=== PATIENT | female | born 1995 | race Caucasian/White ===

== ENCOUNTER 2024-11-05 17:24 | Emergency (ER) | payer OTHER, SELFPAY ==
--- OUTSIDE RECORDS SUMMARY | 2021-07-16 06:29 | XMS_ITS | Continuity of Care Document ---
Author Organization [employer] [facility] Address [address] [place] [address] Phone Care Team Providers Care Hi Lo Driver Name Role Phone Sesar Lua MD Unavailable Unavailable Allergies, Adverse Reactions, Alerts Substance Reaction Status Criticality morphine Altered Heart Rate Active No Inform ation Medications Medication Instructions Dosage Effective Dates (start - stop) Status Comments Robaxin-750 750 mg tablet take 1 tablet by oral route every 8 HOURS NEEDED - Active naproxen 500 mg tablet take 1 tablet by oral route 2 times every day with food as needed 500 MG - Active Kariva (28) 0.15 mg-0.02 mg (21)/0.01 mg (5) tablet take 1 tablet by oral route every day 1.00 tablet - Active Problems Condition Type Effective Dates (start - stop) Clini jennifer Status Comments No Known Problems Procedures Procedure Date OFFICE/OUTPATIENT VISIT, EST URINE TEST OFFICE/OUTPATIENT VISIT, EST ASSAY OF BODY FLUID ACIDITY URINE TEST OFFICE/OUTPATIENT VISIT, EST STREP A ASSAY W/OPTIC INFLUENZA ASSAY W/OPTIC HETEROPHILE ANTIBODIES OFFICE/OUTPATIENT VISIT, EST INFLUENZA ASSAY W/OPTIC OFFICE/OUTPATIENT VISIT, EST INFLUENZA ASSAY W/OPTIC OFFICE/OUTPATIENT VISIT, EST INFLUENZA ASSAY W/OPTIC HETEROPHILE ANTIBODIES OFFICE/OUTPATIENT VISIT, EST ASSAY OF BODY FLUID ACIDITY OFFICE/OUTPATIENT VISIT, EST ASSAY OF BODY FLUID ACIDITY OFFICE/OUTPATIENT VISIT, EST URINALYSIS, AUTO, W/O SCOPE HETEROPHILE ANTIBODIES STREP A ASSAY W/OPTIC OFFICE/OUTPATIENT VISIT, EST URINALYSIS, AUTO, W/O SCOPE OFFICE/OUTPATIENT VISIT, [facility] Advance Directives Directive Yes / No Effective Date File Name No Information Encounters Encounter Description Practice Location Reason(s) For Visit Diagnoses Date Provider Providers Copied on Encounter [facility], [address] [place] [address], [id number] , tel:[phone] [facility] No Information 2 Stoney Kaba. [address], [place], [place], [id number], [place]. tel:[phone] OFFICE/OUTPA TIENT VISIT, [facility], [address] [place] [address], [id number] , [place] tel:[phone] [facility] musculoskelet al pain (chief complaint)jose alberto n (chief complaint) Acute bilateral low back pain without sciatica 201 [address] LAFLEURSANAM Church. [address], [place], [id number], [place]. tel:[phone] Referring Provider: Lynnette PACK, [address] [place], [address]. tel:[phone] OFFICE/OUTPA TIENT VISIT, [facility], [address] [place] [address], [id number] , [place] tel:[phone] [facility] Abdominal pain (chief complaint)con traception (chief complaint) Encounter for test, result negativeNaus eaIrregular menstruation 8 Lilia LAFLEUR [facility] Aisha. [address], [place], [place], [id number], [place]. tel:[phone] Referring Provider: Aisha Rodrigues APRN [facility] Estelita, [address], [place], [address]. tel:[phone] [place] [address], [address] [place] [address] [address], [place], [place], [id number] , [place] tel:[phone] [facility] No Information 7 [facility] Lynnette. [address], [place], [place], [id number], [place]. tel:[phone] OFFICE/OUTPA TIENT VISIT, [facility], [address] [place] [address] [address], [place], [place], [id number] , [place] tel:[phone] [facility] contraception (chief complaint) Other acneOral contraceptiv e prescribedIr regular menstruation Encounter for test, result negative 7 Lilia LAFLEUR [facility] Aisha. [address], [place], [place], [id number], [place]. tel:[phone] Referring Provider: Aisha Rodrigues APRN [facility] Estelita, [address], [place], [address]. tel:[phone] OFFICE/OUTPA TIENT VISIT, [facility], [address], [place], [place], [id number] , [place] tel:[phone] [facility] Flu-like symptoms (chief complaint) Flu-like symptomsAcut e asthmatic bronchitisAc wilton pharyngitis, unspecified 7 Javierelyssa [facility] Lynnette. [address], [place], [place], [id number], [place]. tel:[phone] Referring Provider: Lynnette Shane [facility], [address] [place], [address]. tel:[phone] OFFICE/OUTPA TIENT VISIT, [facility], [address] [place] [address] [address], [place], [place], [id number] , [place] tel:[phone] [facility] acne (chief complaint) Acne, unspecified acne type 6 No Information OFFICE/OUTPA TIENT VISIT, [facility], [address] [place] [address] [address], [place], [place], [id number] , [place] tel: [phone] [facility] cc fever (chief complaint) Flu-like symptoms 6 [facility] Essence. [address], [id number], [place]. tel:[phone] Referring Provider: Essence Fulton [facility], [address] [place], [address]. tel:[phone] OFFICE/OUTPA TIENT VISIT, [facility], [address] [place] [address] [address], [place], [place], [id number] , [place] tel:[phone] [facility] cc throat swollen (chief complaint) PharyngitisR eunice 6 Kirstin LAFLEURRENE [place]ry. [address], [place], [id number], [place]. tel:[phone] Referring Provider: Essence Fulton [facility], [address] [place], [address]. tel:[phone] OFFICE/OUTPA TIENT VISIT, [facility], [address] [place] [address], [place], [place], [id number] , [place] tel:[phone] [facility] Vaginal discharge (chief complaint) LeukorrheaMo nilial vulvovaginit isBacterial vaginosisOra l contraceptiv e prescribed 5 No Information OFFICE/OUTPA TIENT VISIT, [facility], [address] [place] [address] [address], [place], [place], [id number] , [place] tel:[phone] [facility] Vaginal discharge (chief complaint) Painful micturition, unspecifiedV aginal odorVaginal irritation 5 No Information OFFICE/OUTPA TIENT VISIT, [facility], [address] [place] [address] [address], [place], [place], [id number] , [place] tel: [phone] [facility] cc rash (chief complaint) RashPharyngi tis, Acute 5 No Information OFFICE/OUTPA TIENT VISIT, [facility], [address] [place] [address] [address], [place], [place], [id number] , [place] tel: [phone] [facility] Burning on urination (chief complaint)STI (chief complaint)my notes (chief complaint) DysuriaCysti tisRecurrent urinary tract infection 4 No Information Family History Family Member Type Diagnosis Age At Onset Mother Problem (finding) depression Father Problem (finding) Mental illness Brother Problem (finding) diabetes melli tus in first degree relative Father Problem (finding) myocardial inf arct in 1st degree male relative <55 years Payers Payer name Insurance type Covered democrat ID Negrito charles(s) [employer] CI [id number] Social History Type Description Quantity Date Captured Comments Sex Female Smoking Status No Information Sexual Orientation Straight or heterosexual Chief Complaint And Reason For Visit No Information Reason For Referral Reason For Referral No Information Plan Of Treatment Date Type Action Status Goal URINALYSIS NONAU TO W/O SCOPE. Due on due Goal PAP. Due on due Goal Cytology report of Cervical and vaginal smear or scraping Cyto stain. Due on due Goal Td vaccine. Due on 18 due Goal FABRICATION AND LAYOUT CRAFTSMAN/Breast exam. Due on due Goal Pap liquid based for cytology. Due on due Goal Glucose. Due on due Goal HPV (1st). Due on 8 due Goal Pap/HPV testing. Due on due Goal Depression scree colette. Due on due Goal HPV, high+low-risk. Due on due Goal Influenza vaccine. Due on due Goal HPV, high+low-risk. Due on due Goal Influenza vaccine. Due on due Goal HPV (1st). Due on 8 due Goal Pap/HPV testing. Due on due Goal Depression scree colette. Due on due Goal Glucose. Due on due Goal Pap liquid based for cytology. Due on due Goal Cytology report of Cervical and vaginal smear or scraping Cyto stain. Due on due Goal PAP. Due on due Goal URINALYSIS NONAU TO W/O SCOPE. Due on due Goal FABRICATION AND LAYOUT CRAFTSMAN/Breast exam. Due on due Goal Td vaccine. Due on 18 due Goal Influenza vaccine. Due on due Goal Pap/HPV testing. Due on due Goal Depression scree colette. Due on due Goal Glucose. Due on due Goal Pap liquid based for cytology. Due on due Goal FABRICATION AND LAYOUT CRAFTSMAN/Breast exam. Due on due Goal PAP. Due on due Goal URINALYSIS NONAU TO W/O SCOPE. Due on due Goal Cytology report of Cervical and vaginal smear or scraping Cyto stain. Due on due Goal Td vaccine. Due on 17 due Goal HPV, high+low-risk. Due on due Goal HPV (1st). Due on 7 due Goal PAP. Due on due Goal HPV (1st). Due on 7 due Goal Td vaccine. Due on 17 due Goal Pap liquid based for cytology. Due on due Goal Influenza vaccine. Due on due Goal Glucose. Due on due Goal HPV, high+low-risk. Due on due Goal Pap/HPV testing. Due on due Goal URINALYSIS NONAU TO W/O SCOPE. Due on due Goal FABRICATION AND LAYOUT CRAFTSMAN/Breast exam. Due on due Goal Depression scree colette. Due on due Goal Depression scree colette. Due on due Goal Td vaccine. Due on 16 due Goal URINALYSIS NONAU TO W/O SCOPE. Due on due Goal Tdap. Due on due Goal FABRICATION AND LAYOUT CRAFTSMAN/Breast exam. Due on due Goal PAP. Due on due Goal HPV (1st). Due on 6 due Goal Pap/HPV testing. Due on due Goal HPV, high+low-risk. Due on due Goal Pap liquid based for cytology. Due on due Goal Influenza vaccine. Due on due Goal Glucose. Due on due Referral Ordered: [facility] (related to Acne, unspecified acne type) ordered Referral Referred To: [facility] [id number] [place], [id number] Ordered: Referrals: Dermatology. [facility]. Evaluate and treat ordered Patient Education Mononucleosis: After Yo ur Visit completed Future Order: Lab Order Urine Cu lture ([id number]), Collected on: Ordered Future Order: Lab Order Chlamydi a/GC rRNA ([id number]), Ordered on: Ordered History Of Present Illness Encounter Date Complaint History Of Prese nt Illness musculoskeletal pain (comments) Pt states she has had back pain since Mon[place], symptoms have progressively worsened. Pain is in lower back and in certain positions pain shoots into front of legs. Pt has some numbness/tingling along lower back. Pt has used OTC anti-inflammatory, ice and heat with little relief. Pt is unaware of any injury. No urinary symptoms, no GI symptoms. pain it is becoming h mike to do day to day things, pt can no longer sit in class, only relief from back pain has been standing, pt is unable to get good sleep, as it is difficult to go to sleep or stay asleep.hip pain was from being out of alignment, but that was corrected by Chiropractor, but that pain is also back. musculoskeletal pain Onset: 2 mo nths ago. Location: hip. The pain is sharp. Context: there is no injury. The pain is aggravated by bending and sitting. There are no relieving factors. Associated symptoms include difficulty initiating sleep, nocturnal awakening, nocturnal pain and tingling in the legs. Abdominal pain Onset: 1 month a go. It occurs constantly. The problem is worse. Location is LLQ, RLQ. There is radiation to back. The patient describes it as aching, burning and Nausea. Denies aggravating factors. Denies relieving factors. Additional information: Vaginal discharge increase since control change. Clear color. Denies itching. H/o ovarian cysts with surgical [employer] high school. Partner of 2yrs. contraception The symptoms are reported as being moderate. The symptoms occur randomly. Aggravating factors include New start to Kariva Pill. Associated symptoms include cramps. She states the symptoms are acute. 03/2017 menses = 5day flow & bad cramping on wk. 3 of Pill pack. 05/21/17 short cycle lasting 2days, but cramps on wk. 4 of Pill pack. Pill switch last visit & is in the 3packs of Kariva. Prior to that was on LoLoestrin, but did not get good acne control. Is getting good skin now. contraception The symptoms beg an 11 months ago. OCP helped with acne till September. Was also tanning then. Using OTC creams and helping. Wondering about changing OCP. On Lo Loestrin since 02/2016. States last Pap 02/2016 with another provider & normal per pt. States breasts WNL. States has been having menses wk. 2 of OC pack & cramps then, too. Partner of 2yrs. States had STI screen last year & normal results. Flu-like symptoms (comments) Pt states severe back pain, body aches, sneezing, cough, chills. States she has taken DayQuil for symptoms. States having asthma- takes inhaler when needed. States she has not yet taken inhaler. Flu-like symptoms The symptoms b gage 2 days ago. The symptoms have worsened. The patient presents with back pain, chills, cough, fatigue, generalized weakness and headache. The patient denies any aggravating factors. Interventions that have been tried have not provided any relief. Additional information: Patient states c/o extreme fatigue and body aches. acne (comments) States she has b een on acne medicine since the beginning of October. States in December she started taking 100mg medication twice a day. States it has helped with the deep acne. States she has flare ups randomly. States it is super frustrating. Does have topical cream that she uses in the morning. States she still has a decent amount left of cream. States since moises accured when she was 19 she has watched what she has ate. Her field clerk is in [place] and hasn't been following up. Was on Accutane in the past. NKDA.Discussed diagnosis and treatment options with patient and information given. Patient is given derm referral but advised to follow up with her Water Control Supervisor in [place] if it is faster. Topical benzoyl peroxide and cleocin T written. Bactrim written but patient is advised to review current scripts to see if she is on similar products currently. acne The patient pres ents with acne that began 2 years ago. The problem is moderate and unchanged. Area(s) affected include the face. Relevant history positive for family history of depression, sensitive skin and control with oral contraceptives. The patient is sexually active. The patient denies history of liver disease, history of renal disease and previously taken Accutane . Aggravating factors include stress. Denies relieving factors. The date of last menses was on 04/26/2016. The acne has been managed systemically with minocycline with a good response. Associated symptoms include dry skin, oily skin, erythema, scarring and sensitive skin. Pertinent negatives include painful lesion or skin cracking. Additional information: pt states she sees a field clerk. pt states she was on a cream and she states it is not doing anything anymore. pt states it does improve but then gets worse. pt states the minocycline was working well and now it is doing nothing. she states her dermatoligist upped the medication and it did not help. cc fever The symptoms beg an 36 hours ago. The symptoms are reported as being moderate. The symptoms occur constantly. Relieving factors include dayquil , nyquil and ibuprofen. She states the symptoms are acute. c/o chest tight and muscle aches with fatique, hot and cold flashes and sometimes dizziness.constant headache with sharita ear discomfort. these symtoms came on very sudden. cc throat swollen The symptoms b gage 2 days ago. The symptoms are reported as being moderate. The symptoms occur constantly. Relieving factors include nothing. She states the symptoms are acute. c/o tongue and throat swollen, red , scattered rash on legs and under arm. fatique. had mono last year with the same symptoms. Vaginal discharge (comments) Had STI testing back home. The doctor at the urgent care gave her an antibotic for chlamydia. The antibotic gave her symptoms of vaginal discharge. Took medication Tuesday morning. Has been having bad cramps for 3 months now. Knows she needs to get back on control but it makes her have nausea. Has a history of ovarian cysts. Pain is sharp until period starts. Was on Depo before and gained a lot of weight. Does not use tampons. Has been with partner since the beginning of December. Feels that the last time she was treated that the infection went away. Vaginal discharge Her symptoms b gage 4 Days ago. She states the problem has remained unchanged. The symptoms are reported as being mild. Presently the patient is experiencing vaginal itching, vaginal irritation, vaginal odor and vaginal discharge. Color is white. Character is cottage cheese-like. Last menstrual period was 02/24/2015. The patient has a history of bacterial vaginosis. Her symptoms are associated with vaginal burning and itching skin of vaginal/groin but she denies dysuria, frequent urination or genital lesions. Additional information: States the symptoms came right after taking an antibiotic. States that for 3 months now she has been having bad cramping 1.5 weeks before she should start her period. Vaginal discharge (comments) Cristy marie has UTI. Same symptoms as the past UTI's. Also with vaginal odor after SI with new partner `1 week ago, no condom used. Previous STI testing after last partner in June. Last menses 2 weeks late, but no risk.. States menses is irregular. Has been on OC in past and N/V/abdominal pain like when she had ovarian cysts. Knows she needs to go back on birht control. Vaginal discharge Her symptoms b gage 2 Days ago. She states the problem has worsened. The symptoms are reported as being mild. Presently the patient is experiencing vaginal itching, vaginal odor and vaginal discharge. Color is yellow. Character is creamy. Presently the patient is not experiencing vaginal irritation. Last menstrual period was 02/05/2015. Relevant factors include new partner but patient denies condom use, contraceptive use, diabetes mellitus, douching, recent antibiotics or tampon use. The patient has a history of bacterial vaginosis and herpes genitalis. The patient has no history of abnormal PAP, chlamydia, gonorrhea, trichomoniasis or yeast. Her symptoms are associated with dyspareunia and dysuria but she denies fever, vaginal burning, frequent urination, genital lesions, genital rash, genital ulcers or herpes genitalis. Additional information: Has tingling with urination. cc rash The symptoms beg an 2 months ago. The symptoms are reported as being moderate. Aggravating factors include hot shower and cold air. pt state she has a rash on her whole body. she states she has had the rash for the past 2 months. she states it hasnt spread but it is getting more itchy and worse. she went to the doctor at home and was dx with scabies 2.5 weeks ago they gave her rx but they did not help. the bumps have not blistered or do not have discharge. she states she has not changed any lotions, soaps, perfumes, meds. cc rash (comments) The patient i s here with a rash for the past 2 months. She states that it has recently gotten much worse. The rash is present in her armpit, shins, hip, inner thighs. Exacerbating factors: scratching, cold or heat Relieving factors: not touchingShe denies any new detergents, soaps, machine cloth measurer, lotions or perfumesShe does note some mild fatigue. She is requesting a monospot be done due to her mom having a history of mono and when she had mono she developed a rash.She does note that she has never been out in the cold like this before. She was placed on elimite for possible scabies about 2 1/2-3 weeks ago. It did not help the rash at all. STI Presently the pa mikaela is not experiencing vaginal itching, vaginal irritation, vaginal odor and vaginal discharge. Last menstrual period was 12/23/2013. Relevant factors include condom use, oral contraceptives and new partner but patient denies diabetes mellitus, douching, recent antibiotics or tampon use. The patient has a history of herpes genitalis. The patient has no history of abnormal PAP, bacterial vaginosis, chlamydia, gonorrhea, trichomoniasis or yeast. Her symptoms are associated with dysuria and frequent urination but she denies fever, dyspareunia, vaginal burning, genital lesions, genital rash, genital ulcers or herpes genitalis. Burning on urination Onset: 2 We eks. The severity of the problem is moderate. The problem has worsened. The symptoms are constant. Presenting/Initial symptoms include abdominal pain, burning, dysuria, frequency and hematuria. Symptoms are associated with recurring urinary tract infections. Symptoms are not associated with diabetes or . Associated symptoms include abdominal pain, dysuria, frequency, hematuria and pressure. Pertinent negatives include fatigue, fever, flank pain, nausea, nocturia, pelvic pain, rash, retention, urgency, vaginal discharge or vomiting. my notes Gets recurrent U TI's. Has had them since she was younger. Has never seen a urologist. She follows with her [facility]ER. Tries to urinate after SI. Does hold urine in her bladder for 6 hours. Using an exfoliating body wash. Menses is irregular as stopped OC while on antibiotic. Had regular partner of 4 years and one new partner with condom4 days ago. No vaginal symptoms. Functional Status Date Functional Assessmen t No Information Instructions Date Instruction Additional Infor stefanie use the medication a s directedapply ice for 20 minutes four times per day for 24-48 hoursUSE THE MEDICATION DIRECTED Related to Acute bilateral low back pain without sciatica take Pill with food or at bedtim e Related to Nausea Normal exam findings .Symptoms likely due to Pill transition from LoLoestrin to Kariva in the last 90days.Consider Ultrasound eval. if symptoms persist or worsen into this next Pill pack.Continue timeliness of daily Pill use. Another option in future would be The Ring.Aleve, ibuprofen, Midol for cramps as needed. Take with food.Plan return visit in 1-3mos. for Pap exam & as needed Related to Irregular menstruation Irregularity can occ ur with Lo Loestrin due to the low dose. Expect regularity with menses on wk. 4 of Pill pack with Kariva.STI screening suggested & you declined today. Those may be done with your [facility] exam next mo. then. Related to Irregular menstruation as above. The Pill m ust be taken daily at the same time -- you may program your cell phone to remind you. Condoms are advised for safer sex. Most common side effect =breakthrough bleeding -- bleeding when it's not your menstrual week. This side effect is most likely to occur with the 1st 1-3packs of pills. You may come in for a Pill or method switch if you are dissatisfied with your current Pill. Danger signs are unexplained abdominal pain, chest pain, worsening headaches, visual changes, leg pains/swelling, or shortness of breath. Danger signs require a visit to the ER & are rare. Related to Oral contraceptive prescribed finish current Pill pack then switch to Kariva (desogestrel) Pill. The progestin content of this pill has an anti-testosterone effect which can help with acne control.Avoid tanning bed as that is cancer risk especially with you as a redhead & pale skin.Advise Well Woman (pelvic exam) next month when due.return as needed & for Well Woman in 02/2017 Related to Other acne Medication as instru cted. Follow up in 2-3 days if symptoms do not improve. Go to ER if worsening symptoms- including chest pain, shortness of breath. Use inhaler 2 puffs every four hours for cough for the next 2-3 days. Use condoms from day one of antibiotic until seven days after last dose. Related to Acute asthmatic bronchitis Take Motrin or Tylen ol for pain; Sudafed or Mucinex for congestion. Return to [facility] as needed. Report to ER for difficulty breathing or any problems. 8-10 glasses of water a day and rest. Related to Flu-like symptoms Topical Benzoyl josefina xide and Cleocin T to affected areas as directed. Antibiotics as prescribed. Follow up with Dermatology ARGELIA to confirm ABX change if possible. Return for any problems. Related to Acne, unspecified acne type see plan detail Related to Acne, unspecified acne type Check your temperatu re when feeling chilled. Fever control with Tylenol and Motrin products. Salt water gargles if helpful. Inhaler 2 puffs 4 times a day as needed. Rest. Increase fluids and food as tolerated. No Driving with sedating medications. No cough drops at bedtime(choking risk). Report to ER for worsening pain fever, vomiting, dehydration, mental status changes, neck pain etc. Return to [facility] if not improving 2-7 days for re-evaluation as needed. Related to Flu-like symptoms Take medicaiton as d irected. May use cool compresses to areas for comfort. Follow up if not improved in 1 week. If symptoms change or worsen may follow up with [facility] or go to ER. Related to Rash Vocal rest as needed . Increase fluids and food as tolerated. Salt water gargles if helpful. Ricola throat lozenges for throat discomfort. No cough drops at bedtime(choking risk). Motrin 600-800mg every 8 hours as needed for throat discomfort, take with food. Report to ER for worsening pain, fever, vomiting, difficulty breathing etc. Return to [facility] 4-5 days if not improving. Related to Pharyngitis Reviewed OC use and administration. Reviewed ACHES. Questions answered. Verbalized understanding of med use and instructions. Will use 20 mcgm dose and hope no nausea. Take with food and at night. Discussed possible use of Nuvaring, but declines. Related to Oral contraceptive prescribed Bacterial vaginosis is an infection that is due to an overgrowth of bacteria. It is the most common vaginal infection. It can occur by itself or can often go along with another infection. That is why other testing is done when checking for an infection. It is aggravated by stress. Use of condoms helps to prevent this infection. Info. provided. Reviewed med use. Verbalizes understanding. If gets another BV, consider doing urea and mycoplasma testing. If chlamydia test comes back positive, then partner needs treatment. Related to Bacterial vaginosis Yeast is a fungus th at is normally present in the vagina in a balance with other bacteria. It can overgow at certain times such as high stress, antibiotic use, change in hygiene products including soaps, dry intercourse, premenstrually or a combination of these things. It is advised to use a mild cream based soap in the genital area such as Dove bar soap. Be sure there is enough lubrication with intercourse and avoid scented hygiene products to help prevent yeast infections. Be sure to complete the treatment. It is best to avoid intercourse until the symptoms are resolved. If symptoms are not resolved within a few days of completing the treatment or if symptoms worsen then return to the clinic or contact your provider. Related to Monilial vulvovaginitis see plan details Related to Oral contraceptive prescribed see plan details Related to Vicki lial vulvovaginitis Await results of lab s. Advised to resume control for protection and to prevent ovarian cysts. Will see own WORM RAISER in [place]. Related to Vaginal irritation Discussed possible c auses. Await Affirm results. Suggest GC/ Chlamydia testing in 2-3 weeks when accurate. Did not do today as it is too soon. The patient verbalized an understanding of the plan. Related to Vaginal odor Advised that UA is n egative. Symptoms could be due to vaginal cause. Will notify results of Affirm. Related to Painful micturition, unspecified see plan details Related to Vagi nal irritation see plan details Related to Vagi nal odor see plan details Related to Pain ful micturition, unspecified Use steroid and pres cribed at visit. Return to [facility] if no improvement. If you develop chest pain, shortness of breath please go to ER immediately. Related to Rash Will do urine cultur e and call results prn. If another infection, advise to see a urologist. The patient verbalized an understanding of the plan. Related to Recurrent urinary tract infection Discussed bladder in fection, cause, treatment and prevention. Info. provided. Increase fluids and void every 3 hours. Avoid caffeine and carbonated drinks. Urinate after sex. Wipe front to back. Mild body soap, like Dove bar soap. Reviewed med use. Verbalizes understanding of all instuctions. If symptoms after treatment, then RTC. Verbalizes understanding of the plan. Related to Cystitis see plan details Related to Cyst itis see plan details Related to Recu rrent urinary tract infection Assessments Type Assessment Date No Information Patient Care Teams Name Effective Dates (start - stop) Status Members No Information
--- OUTSIDE RECORDS SUMMARY | 2024-10-02 09:40 | XMS_ITS | Encounter Summary ---
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 Name Role Phone Rufino Ayala PA-C Unavailable [phone] Terry Kovacs MD Unavailable Rufino Ayala PA-C Primary Care Provider [phone] Source Comments In the event this information is protected by the Federal Confidentiality of Alcohol and Drug AbusePatient Records regulations: The Federal rules restrict any use of the information to criminally investigate or prosecute any alcohol or drug abuse patient.[facility] Reason for Referral * Transition of Care (Routine) - Authorized Specialty Diagnoses / Procedures Referred By Ambika hayes Referred To Contact Psychology Diagnoses Pulsatile tinnitus Procedures CONSULT TO PSYCHOLOGY Suleman Mariscal MD [address] [place] [address] Phone: tel: fax: Deon Montemayor PSYD [address] [place] [address] Phone: tel: Referral ID Status Reason Start Date Expiration Date Visits Requested Visits Authorized [id number] Authorized PCP Requested Referral 10/02/2024 10/02/2025 1 1 Reason for Visit * Reason Comments pulsatile tinnitus Encounter Details Date Type Department Care Team (Latest Contact Info) Description 10/02/2024 9:[address] [facility] Neurology [address] [place] [address] Suleman Mariscal MD [address] [place] [address] Pulsatile tinnitus (Primary Dx) Social History Tobacco Use Types Packs/Day Years Used Date Smoking Tobacco: Never Smokeless Tobacco: Never Alcohol Use Standard Drinks/Week Comments Yes 0 (1 standard drink = 0.6 oz pur e alcohol) socially- twice a month Area Deprivation Index Answer Date Diaz rded National Score (1-100), lower number is lower ri sk 63 10/02/2024 State Score (1-10), lower number is lower risk 4 10/02/2024 Data from: https://www.neighborhoodatlas.medicine.[facility].edu/. Last address used for calculation [address] [address] 10/02/2024 Comments No Sex and Gender Information Value Date Recorded Sex Assigned at Not on file Legal Sex Female 9:59 AM EDT Gender Identity Not on file Sexual Orientation Not on file documented as of this encounter Progress Notes * Suleman Mariscal MD - 10/02/2024 10:50 AM EDT Images from the original note were not included. [facility]: Cerebrovascular Neurosurgery and Endovascular Surgical Neuroradiology Follow-up Visit Tracy Mckoy [facility]#: [id number] Date of Service: 10/02/2024 Primary Care Provider: CORRY Arango, PA-C Subjective Ms. Mckoy is a 29-year-old female presenting for follow-up after a recent angiogram. Tracy reports a mild soreness following the angiogram, attributed to excessive walking yesterday. She does not endorse any complications, swelling, or additional bruising beyond what she describes as typical. She does not report numbness or tingling but mentions ongoing nerve issues with her quadriceps. She describes the tinnitus as overwhelming and expresses a strong desire to alleviate her symptoms,stating, I will do anything to try to make this go away or the best results that we can. She acknowledges the impact of her condition on her quality of life and is willing to pursue any measures tominimize it. She recently had stapedotomy performed by Dr. Kovacs. REVIEW OF SYSYEMS Ears/Nose/Mouth/Throat: (+) hearing changes, (+) tinnitus Musculoskeletal: (+) quadriceps muscle soreness Skin: (+) bruising, (-) swelling Neurological: (-) numbness, (-) tingling, (+) quadriceps nerve issue Psychiatric: (+) feeling overwhelmed Suleman Mariscal MD ACTIVE PROBLEM LIST Ponv (Postoperative Nausea and Vomiting) Asthma (Hcc) PAST SURGICAL HISTORY Procedure Laterality Date APPENDECTOMY 2021 L'SCOPE DX W/WO BRUSHINGS/WASHINGS 2011 2 ovarian cysts removed PAST SURGICAL HISTORY OF Left hand fracture TONSILLECTOMY & ADENOIDECTOMY <AGE 12 and ear tubes- as a child Allergies: Liquid Bandage (Cyanoacrylate) [Enbucrilate] Medications: Current Outpatient Medications Medication Sig venlafaxine HCl (EFFEXOR XR ORAL) Take 150 mg by mouth once daily. traZODone (DESYREL) 50 mg tablet Take 50 mg by mouth as needed for sedation. cetirizine HCl (CETIRIZINE ORAL) cetirizine Refills(s) 0 Start Date: 03/03/23 Status: Ordered (Patient not taking: Reported on 07/10/2024) cyclobenzaprine (FLEXERIL) 10 mg tablet Take 10 mg by mouth. (Patient not taking: Reported on 07/10/2024) fluticasone (FLONASE) 50 mcg/actuation nasal spray 1-2 Sprays. (Patient not taking: Reported on 07/10/2024) hydrocortisone 2.5 % cream Apply to affected area. meclizine (ANTIVERT) 25 mg tab Take 25 mg by mouth. ondansetron orally disintegrating (ZOFRAN ODT) 4 mg disintegrating tablet 4 mg = 1 tab(s), Oral, q6hr, PRN PRN as needed for nausea/vomiting, # 12 tab(s), Refills(s) 0, 0, Maintenance, Pakistani, Routeto Pharmacy Electronically, Pharmacy: [facility] [id number] (Patient not taking: Reported on 07/10/2024) pseudoephedrine (SUDAFED) 60 mg tablet Take 60 mg by mouth every 6 hours as needed. (Patient not taking: Reported on 09/24/2024) venlafaxine ER (EFFEXOR XR) 150 mg 24 hr capsule Take 150 mg by mouth. albuterol sulfate 90 mcg/actuation aebs Inhale as instructed. (Patient not taking: Reported on 07/10/2024) albuterol HFA (PROAIR HFA) 90 mcg/actuation inhaler Inhale 2 Puffs as instructed every 4 hours as needed for Wheezing/Shortness of Breath. No current facility-administered medications for this visit. Social History Tobacco Use Smoking status: Never Smokeless tobacco: Never Vaping Use Vaping status: Never Used Substance Use Topics Alcohol use: Yes Comment: socially- twice a month Drug use: Never Objective PHYSICAL EXAMINATION (Video visit, evaluation by zoom) General: Well-developed, well-nourished, in no acute distress. HEENT: Normocephalic, atraumatic. Sclerae anicteric. Neurological: Awake, alert, oriented. EOMI, face symmetric, tongue midline. Speech fluent. RESULTS We reviewed together images from her recent angiogram which shows a right dominant transverse sinus, slightly smaller left transverse sinus with mild narrowing at the sinodural angle. At the time balloon inflation in the lateral transverse sinus decreased but did not completely eliminate tinnitus. Assessment & Plan # Pulsatile tinnitus (H93.A9) Angiogram reveals mild narrowing and turbulence in the left lateral transverse sinus. Balloon inflation during the procedure showed a decrease in tinnitus, suggesting that the turbulence is contributing to the symptoms. Discussed the potential benefits and limitations of stent placement to improve laminar flow and reduce turbulence. I believe this will decrease but not eliminate her symptoms. We discussed risks of the procedure including dual antiplatelet medications, subdural hemorrhage duringthe procedure (< 05/999), and hemorrhage at the access site. Because of debilitating symptoms and associated disability, she would like to proceed with stenting. - Scheduled stent placement to address the mild narrowing and turbulence in the left lateral transverse sinus. - Initiate dual antiplatelet therapy with aspirin and Plavix one week prior to the procedure and continue for three months post-procedure, followed by aspirin monotherapy for an additional three months. - Educated patient on the risks of the procedure, including potential bleeding and the need for antiplatelet therapy. - Advised patient to take a week off work post-procedure and avoid heavy lifting and soaking the incision site for one week. - Ordered a follow-up CT scan to assess stent patency 3-6 months post-procedure. - Referral to Dr. Montemayor for cognitive behavioral therapy to help cope with symptoms. Staff Note I spent a total of 40 minutes on the date of the service which included preparing to see the patient, [id number] patient care, completing clinical documentation, obtaining and/or reviewing separately obtained history, performing a medically appropriate examination, counseling and educating the pat ient/family/caregiver, ordering medications, tests, or procedures, and communicating results to thepatient/family/caregiver. Recording using [employer] software for draft documentation of the visit was discussed with the patient/authorized employee's representative; all questions welcomed and answered. Patient/authorized employee's representative agreed to proceed SIGNATURE Suleman Mariscal MD 10/02/2024 CC No referring provider defined for this encounter. CORRY Arango [address] [place] [address] documented in this encounter Plan of Treatment Upcoming Encounters Date Type Department Care Team (Latest Contact Info) Description 11/27/2024 8:[address] [facility] Neurology [address] [place] [address] Suleman Mariscal MD [address] [place] [address] Dx Hospital DC Post op Est patient 11/27/2024 3:00 PM EDT Appointment Radiology [address], [place] [address] Dx: Pulsatile tinnitus, left ear [H93.A2] 12/03/2024 3:[address] [facility] Neurological [facility] [address] [place] [address] Deon Montemayor, QUINTEN [address] [place] [address] new consult for Tinnitus CBT per Dr. Hasnie documented as of this encounter Procedures Procedure Name Priority Date/Time Associated Diagnosis Comments IR CEREBRAL EMBO INTRACRANIAL Routine 10/26/2024 10:02 AM EDT Pulsatile tinnitus documented in this encounter Results * IR CEREBRAL EMBO INTRACRANIAL (10/26/2024 10:02 AM EDT) Anatomical Region Laterality Modality Other 10/26/2024 10:0 2 AM EDT Impressions 10/30/2024 8:00 PM EDT IMPRESSION: 1. Mild left transverse-sigmoid narrowing with associated turbulent flow as previously documented. 2. Successful transvenous stenting across the stenotic segment, with diminished turbulence. Jose Pacheco MD Endovascular Surgical Neuroradiology, Fellow Billing Administrator: GAIL Transcribe Date/Time: Oct 28 2024 3:25P Dictated by : JOSE PACHECO MD This examination was interpreted and the report reviewed and electronically signed by: SULEMAN MARISCAL MD on Oct 30 2024 7:58PM EST Narrative 10/30/2024 8:00 PM EDT * * *Final Report* * * DATE OF EXAM: Oct 26 2024 10:02AM NDA 5130 - IR CAROTID - INTERNAL / PROCEDURE REASON: Pulsatile tinnitus * * * * Physician Interpretation * * * * NEUROINTERVENTIONAL REPORT CLINICAL HISTORY: TRACY MCKOY is a 29-year-old Female who presented with history of left pulsatile tinnitus who previously underwent a diagnostic angiogram with test balloon occlusion of the left transverse stenosis with some improvement. PROCEDURE: 1. Ultrasound-guided arterial and venous access 2. Diagnostic cerebral angiogram 3. Cerebral venous sinus stenting 4. Diagnostic cerebral venogram 5. Followup cerebral angiogram TIME OUT TIME: 831 PROCEDURE START TIME: 831 PROCEDURE END TIME: 944 ATTENDING: Suleman Mariscal MD RECORDING ENGINEER (FELLOW): Jose Pacheco MD ANGIOGRAPHY MATERIALS: Guidewire: 0.035 inch angled tapered Glidewire Arterial: Diagnostic catheter: 5 Syriac Vert Catheter catheter Venous: Diagnostic catheter: 5 Syriac Vert Catheter Guide catheter: 6 Fr x 80 cm Shuttle guide sheath over a 4 Fr Berenstein introducer Intermediate catheter: 0.072 Navien x 105 cm Microcatheter: Balt Enikos Carrier system Microwire: Norman 18 microwire Stent: Zilver 9 mm x 60 mm stent Fluoroscopic Radiation Summary: Plane A, Air Kerma: 297.2 mGy Plane B, Air Kerma: 96.3 mGy Dose Area Product (DAP): Fluoro time: 18:54 min:sec Radiation dose exceed 5 Gy: No If radiation dose exceeded 5 Gy, was counseling and instructional brochure provided:N/A Contrast: 105 ml of OMNIPAQUE 300 ANESTHESIA: DEBBIE was administered intravenously with continuous monitoring by a dedicated anesthesiologist. Pulsed oximetry, cardiopulmonary monitoring and electrocardiography was performed throughout the procedure per anesthesia team. TECHNIQUE:After angel discussion of the risks and benefits of the procedure, informed consent was obtained. The patient demographics, procedure to be performed, patient position, and equipment to be used were confirmed between the performing physicians, anesthesia team and interventional neuroradiology team. The patient was brought to the angiography suite and placed in supine position. After respiratory and hemodynamic monitoring was established and DEBBIE induced, the bilateral groins were prepped and draped in the usual standard fashion After fluoroscopic localization of the left femoral head, the artery and vein were visualized with ultrasound. Left common femoral artery and vein: both normal and patent. The left femoral artery and vein were found to be sufficient for transfemoral access. A permanent image of the artery and the vein were archived. Vascular access was then obtained in the artery utilizing a standard 4 Fr micropuncture set, under direct ultrasound visualization followed by a 5 Fr sheath connected to heparinized saline flush. This was followed by vascular access in the vein again utilizing a standard 4 Fr micropuncture set, under direct ultrasound visualization followed by a 6 Fr dilator and then a 6Fr Shuttle with inner dilator. Once in lower IVC, the inner dilator was removed and the guide sheath was connected to heparinized saline flush. A standard diagnostic catheter and wire were then fluoroscopically advanced for selective catheterization of the following vessels via right left arterial access: Left common carotid artery, cervical views. Standard AP and lateral views. Left internal carotid artery, intracranial views. Standard AP, lateral and oblique views. Angiographic imaging was performed at the selected vessel with views as described above. FINDINGS: LEFT COMMON CAROTID ARTERY INJECTION (cervical): DSA images of the left common carotid artery show normal course and caliber. The carotid bifurcation is at C3-4 level. The proximal cervical ICA has normal course and caliber without significant atherosclerotic changes. The ECA and the proximal segment of its branches are normal in course and caliber. LEFT INTERNAL CAROTID ARTERY INJECTION (cranial): DSA images of the left anterior intracranial circulation demonstrate normal course and caliber of the petrous, cavernous and supraclinoid segments of the internal carotid artery. The ophthalmic artery origin, course and caliber are normal. There is a small PCOM artery without significant contribution to the posterior circulation. The anterior choroidal artery is normal. M1 and A1 segments are normal. MCA and HAO distributions are normal. There is robust filling across the anterior communicating artery to the contralateral HAO. Capillary phases is normal. Venous phase shows re-visualization of the mild left lateral transverse sinus narrowing and associated turbulent flow as documented in prior angiogram. No aneurysm or abnormal arteriovenous shunting is identified. The external carotid artery course, caliber and terminal branches are normal. BASED ON ABOVE FINDINGS, THE FOLLOWING PROCEDURE WAS PERFORMED: The patient was fully heparinized with therapeutic ACT maintained throughout the procedure. A coaxial system of guide sheath with the diagnostic catheter, connected to a heparinized saline flush system, was advanced over a 0.035 Glidewire up to the left jugular bulb. The catheter and glidewire were taken out. Through the guiding catheter, a Navien intermediate catheter and a Medium Carrier system in conjunction with an Norman 18'' microwire was used to cross the left sigmoid and transverse sinuses. Once the intermediate catheter was placed in the contralateral right transverse sinus, the Carrier and the microwire were removed. Next, through the guide sheath and the intermediate catheter, a 9 mm x 60 mm Zilver [id number] stent delivery system was introduced. When in appropriate position across the stenotic segment, the Navien was pulled back and the stent was deployed. The stent delivery system was removed. Follow up arterial and venous angiograms were performed which showed no residual stenosis and mild buckling of the stent at the mid portion. We decided against angioplasty given no flow limitation. Final angiogram performed. The procedure was then terminated. All catheters and wires were withdrawn from the patient. Hemostasis at the right groin venous puncture site was obtained by MVP and manual compression while hemostasis at the right groin arterial puncture was obtained via Vascade and manual compression. The patient emerged from general anesthesia neurologically intact and was transferred to PACU in stable condition without immediate complication. FINDINGS: LEFT INTERNAL ARTERY INJECTION (cranial): There is an interval stent placement within the left transverse sigmoid sinus with no residual stenosis and diminished turbulence. The remaining angiographic run is similar to preintervention angiogram. LEFT TRANSVERSE SINUS INJECTION (cranial): Normal course and caliber of the left transverse sinus with no residual stenosis. There is mild buckling at the mid portion of the stent without significant flow limitation. Suleman Mariscal MD INTERVENTIONAL RADIOLOGY Final Result documented in this encounter Visit Diagnoses Diagnosis Pulsatile tinnitus- Primary Unspecified tinnitus documented in this encounter Care Teams Petroleum Plant Operator Relationship Specialty Start Date End Date Rufino Ayala PA-C [address] [place] [address] PCP - General Physician Flat Finisher 06/21/24 Rufino Ayala PA-C [address] [place] [address] Referring Physician Flat Finisher 04/16/24 Terry Kovacs MD [address] [place], [place] [id number] Referring Ent - Otolaryngology 06/07/24 documented as of this encounter
--- OUTSIDE RECORDS SUMMARY | 2024-10-25 08:20 | XMS_ITS | Encounter Summary ---
Author Organization [facility] Address [address] [place] [id number] Care Team Providers Care Field Staff Name Role Phone Rufino Ayala PA-C Unavailable [phone] Terry Kovacs MD Unavailable Rufino Ayala PA-C Primary Care Provider [phone] Source Comments In the event this information is protected by the Federal Confidentiality of Alcohol and Drug AbusePatient Records regulations: The Federal rules restrict any use of the information to criminally investigate or prosecute any alcohol or drug abuse patient.[facility] Reason for Visit * Reason Comments Pre-Op Visit * Auth/Cert (Routine) Specialty Diagnoses / Procedures Referred By Ambika t Referred To Contact ADMITTING Diagnoses Pulsatile tinnitus, left ear Pulsatile tinnitus, left ear [H93.A2] Procedures TCAT PERMANENT OCCLUSION/EMBOLIZATION PRQ PROCUREMENT BUYER TRANSCATH EMBOLIZATION PROCUREMENT BUYER INTRACRANIAL Admitting [address] [place] [address] Referral ID Status Reason Start Date Expiration Date Visits Re quested Visits Authorized [id number] 1 1 Encounter Details Date Type Department Care Team (Late st Contact Info) Description 10/25/2024 8:20 AM EDT PAT Pre Anesthesia [address] [place] [id number] 6, Pacc [address] [id number] Pre-operative examination (Primary Dx); Pulsatile tinnitus, left ear; Mild intermittent asthma without complication (HCC); PONV (postoperative nausea and vomiting) Social History Tobacco Use Types Packs/Day Years Used Date Smoking Tobacco: Never Smokeless Tobacco: Never Tobacco Cessation:Counseling Given: Not Answered Alcohol Use Standard Drinks/Week Comments Yes 0 (1 standard drink = 0.6 oz pur e alcohol) socially- twice a month Area Deprivation Index Answer Date Diaz rded National Score (1-100), lower number is lower ri sk 63 10/02/2024 State Score (1-10), lower number is lower risk 4 10/02/2024 Data from: https://www.neighborhoodatlas.[facility].edu/. Last address used for calculation [address] [address] 10/02/2024 Comments No Sex and Gender Information Value Date Recorded Sex Assigned at Not on file Legal Sex Female 9:59 AM EDT Gender Identity Not on file Sexual Orientation Not on file documented as of this encounter Last Filed Vital Signs Vital Sign Reading Time Taken Comments Blood Pressure 117/74 10/25/2024 8:21 AM EDT Pulse 74 10/25/2024 8:21 AM EDT Temperature 36 C (96.8 F) 10/25/2024 8:21 AM EDT Respiratory Rate 16 10/25/2024 8:21 AM EDT Oxygen Saturation 99% 10/25/2024 8:21 AM EDT Inhaled Oxygen Concentration - - Weight 70.6 kg (155 lb 10.3 oz) 10/25/2024 8:21 AM EDT Height 170.2 cm (5' 7 ) 10/25/2024 8:21 AM EDT Body Mass Index 24.38 10/25/2024 8:21 AM EDT documented in this encounter Patient Instructions * Patient Instructions* Goldy Rosas APRN.CNP - 10/25/2024 8:36 AM EDT Images from the original note were not included. [facility] PATIENT PREOPERATIVE INSTRUCTIONS Ish Tomas APRN.CNP has scheduled you for your procedure at this surgery center: [facility] [place] Scheduling Office: [phone] --[address] [place] [address]. Please read below carefully for your personalized instructions. Dietary Restrictions: - No solid food after midnight. - You may have 12 ounces of clear liquids (water, clear juices such as apple juice or gatorade, carbonated beverages, clear tea, black coffee, jello) until 2 hours before scheduled arrival at facility. Medications: Unless instructed differently below, stay on all of your medications until your surgery. If you start any new medications after today's visit, please contact your surgeon. Pre-Surgery Med Instructions Medication Instructions aspirin 325 mg tablet If you normally take this medication in the morning, take the morning of surgery. clopidogrel (PLAVIX) 75 mg tablet If you normally take this medication in the morning, take the morning of surgery. venlafaxine HCl (EFFEXOR XR ORAL) Do not take the day of surgery cetirizine HCl (CETIRIZINE ORAL) Do not take the day of surgery cyclobenzaprine (FLEXERIL) 10 mg tablet Do not take the day of surgery meclizine (ANTIVERT) 25 mg tab Do not take the day of surgery ondansetron orally disintegrating (ZOFRAN ODT) 4 mg disintegrating tablet Do not take the day of surgery albuterol HFA (PROAIR HFA) 90 mcg/actuation inhaler Continue as needed If you start any new medications after today's visit, please contact the surgeon's office. If you are currently using a xikf-ysk-wekw injectable or oral medication for diabetes or weight loss such as Dulaglutide (Trulicity), Exenatide (Byetta, Bydureon), Liraglutide (Victoza, Saxenda), Semaglutide (Ozempic, Wegovy, Rybelsus), or Tirzepatide (Mounjaro), the medicine should be stopped at least 7 days before surgery. These medicines can cause food to remain in your stomach for a very longtime and increase the risks from surgery and anesthesia. Not stopping the medication for a long enough time may result in your surgery being rescheduled. Blood Thinning Medications: - Stop NSAIDS (Ibuprofen, Advil, Aleve, Motrin, Celebrex, Mobic, etc.) 7 days before surgery, as directed by your surgeon. - Do NOT stop aspirin or other anticoagulants without consulting with your court advocate or prescribing physician. - Stop ALL herbal and dietary supplements 7 days before surgery. - You may take Tylenol (Acetaminophen) or any of your pain medications that do not contain aspirin or NSAIDS as needed. Important Reminders: - If you are prescribed inhalers for breathing, continue using them. - Candy, mints, and tobacco products are NOT permitted the morning of surgery. - Hearing aids, dentures and glasses may be worn the morning of surgery. - NO jewelry, body piercings, makeup, hairpins or contacts are to be worn the day of surgery. If you develop symptoms such as a fever, cold, or flu, or have other changes to your health within TWO DAYS of scheduled surgery or the morning of surgery, please contact the surgery center above. Personal Belongings: -Please have photo ID and insurance cards. -If you do not have a copy of advance directives on file with us, please bring a copy with you on the day of surgery. - Leave ALL valuables and money at home or with family members. - Please bring high-quality footwear, such as sneakers, to the hospital for ambulating post-surgery. For Outpatient Procedures: - YOU MUST HAVE A RESPONSIBLE RECORDS ASSISTANT TAKE YOU HOME. A MOBILE PET GROOMER OR INSURANCE CLERK CANNOT BE MADE A RESPONSIBLE RECORDS ASSISTANT. - We recommend that a responsible person stays with you overnight to take care of you. - You cannot stay in a hotel alone after outpatient surgery. You will not be permitted to have yoursurgery, if you do not have someone to take care of you. Arrival Time for Surgery: - To obtain your arrival time for surgery, call your physician's office the day before your surgery. - If you have received different instructions about finding out your arrival time from your surgeon, please follow those instructions. - If your surgery is scheduled for Tuesday, call the Tuesday before. Your surgeon???s horticultural specialty grower will tell you what time to call the office. - If you have not reached the departmental horticultural specialty grower by 5 P.M., call [phone] after 5 P.M. the day before your surgery. Please be aware that emergency situations arise, which may delay or change your surgical time. If this happens, we will notify you as soon as possible and regret any inconvenience. If you already have an Advance Directive, please fax a copy to [phone] or email to for it to be added to your chart. If you do not have an Advance Directive, you can find the appropriate form and more information at [email or web address]. We recommend that youcomplete the Advance Directive form found on the website and bring it with you the day of your surgery. It can be witnessed and scanned into your chart that day. Goldy Rosas APRN.CNP documented in this encounter H&P Notes * Goldy Rosas APRN.CNP - 10/25/2024 8:20 AM EDT Images from the original note were not included. [facility] HISTORY AND PHYSICAL EXAMINATION SERVICE DATE: 10/25/2024 SERVICE TIME: 8:27 AM PRIMARY CARE PHYSICIAN: CORRY Arango, PA-C Assessment Patient has the following medical conditions which may affect blair-operative course: Asthma Stable on Albuterol inhaler as needed. Patient requires the Albuterol once every week or two. PONV (postoperative nausea and vomiting) Hx of PONV. Patient has responded well to Zofran in the past. ANESTHESIA FINDINGS: Intubation History: No history of difficult intubation Significant Anesthesia Considerations: potential postop nausea/vomiting potential slow emergence Airway History: No history of difficult airway Nugent Activity Status Index: METS: Walk indoors, such as around the house (1.75 METs) Do light work around the house, such as dusting or washing dishes (2.70 METs) Take care of self; that is eating, dressing, bathing, using the toilet (2.75 METs) Walk a block or two on level ground (2.75 METs) Do moderate work around the house, such as vacuuming, sweeping floors, or carrying in groceries (3.50 METs) Do yardwork, such as raking leaves, weeding, or pushing a power mower (4.50 METs) Have sexual relations (5.25 METs) Climb a flight of stairs or walk up a hill (5.50 METs) Do heavy work around the house, such as scrubbing floors, lifting or moving heavy furniture (8.00 METs) Run a short distance (8.00 METs) DASI Score: 44.7 Patient denies any chest pain or undue shortness of breath with the above physical activity. Clinical Frailty Scale: 3. Well, with treated comorbid disease STOP-Bang Score: Denies snoring loudly Denies feeling tired, fatigued, or sleepy during the daytime Has not been observed to stop breathing or choking/gasping during sleep Denies having high blood pressure BMI less than or equal to 35 kg/m^2 Patient 50 years old or younger Does not have a large neck Non-male patient STOP-Bang Score: 0 I - PHYSICAL EVALUATION AIRWAY Patient intubated: No. Tracheostomy tube not present Mallampati: III. TM distance: >3 FB. Neck ROM: full ROM without neurological symptoms. Mouth opening: adequate. Short neck: no. Thick neck: no Lip Bite Test: I Microretrognathia/Micronagthia/Recessed Chin: No DENTAL Dental findings: teeth intact. II - ANESTHESIA PLAN Anesthetic plan additional comments: *PACC/TCI - anesthesia choice. Beta Emma Monitoring Plan Post Procedure Analgesic Plan Prepared for Surgery: optimally prepared for surgery, pending day of surgery. PACC appointment 10/25/24, surgery scheduled for next day 10/26/24. Pending DOS review of labs. CONSULTS: Patient does not require consults for optimization at this time Planned Anesthetic: anesthesia choice The Following Tests/Procedures Have Been Initiated: Orders placed by surgeon's office: CBC, BMP, TYPE + SCREEN, CONFIRM BLOOD TYPE REASON FOR VISIT: Tracy Harrington is a 29 year old female who is scheduled for Procedure(s): TRANSCATH EMBOLIZATION PROCUREMENT BUYER INTRACRANIAL (Left) at the request of Heladio Hooper MD for consultation. My final recommendation will be communicated back to the requesting physician by way of shared medical record or letter. Subjective The patient has the following: COVID-19 Immunization Status Current Care Gaps Covid-19 Vaccine ( season) Never done No completion, postpone, frequency change, or communication history exists for this topic. CHIEF COMPLAINT: Pulsatile tinnitus, left ear HPI: Patient is a 29 year old female presenting to PACC; has c/o pulsatile tinnitus, left ear. Hx of stapedotomy in June 2024. Patient denies recent fevers, chills, unexplained weight loss. The above surgery was recommended; patient has elected to proceed. REVIEW OF SYSTEMS: General: No weight loss, malaise or fevers. Neurological: Negative for: seizures, TIA and strokes. Respiratory: Positive for: asthma. Negative for: current cough, bronchodilator used daily for the last 3 months, dyspnea, pneumonia within 6 weeks and URI < 2 weeks. Cardiovascular: No history of HTN requiring medication, no history of angina, CHF, AK, cardiac surgery or stents. Denies rest pain, gangrene or revascularization/amputation for PVD. No history of cardiovascular symptoms or problems. GI: Negative for: abdominal pain, liver disease, nausea and vomiting. : No history of dysuria, frequency or incontinence, stones or chronic kidney disease. No difficulty urinating, nocturia > 1 time per night or hematuria. Endocrine: No history of diabetes. Has not taken steroids within the past 30 days. No history of endocrinological symptoms or problems. Hematology: Positive for: chronic anti-coagulation/platelet meds. Patient is on anti- coagulation/platelet medication(s): Aspirin and Plavix. Oncology: No history of CA metastasis, chemo within 30 days, or radiotherapy within 90 days. No history of oncological symptoms or problems. Psych: No history of psychiatric symptoms or problems. Musculoskeletal: Negative for joint pain or swelling, back pain or muscle pain. Skin: Negative for lesions, rash and itching. PAST MEDICAL HISTORY Diagnosis Date Asthma (HCC) PONV (postoperative nausea and vomiting) PAST SURGICAL HISTORY Procedure Laterality Date APPENDECTOMY 2021 L'SCOPE DX W/WO BRUSHINGS/WASHINGS 2011 2 ovarian cysts removed PAST SURGICAL HISTORY OF Left hand fracture STAPEDECTOMY/STAPEDOTOMY Left 07/06/2024 STAPEDOTOMY W/ REESTABLISHMENT OSSICULAR CONTINUITY TONSILLECTOMY & ADENOIDECTOMY <AGE 12 and ear tubes- as a child FAMILY HISTORY Problem Relation Age of Onset No Known Problems Mother Heart Attack Father 40 - 49 Breast Cancer Maternal Grandmother Lung Cancer Paternal Grandmother Social History Tobacco Use Smoking status: Never Smokeless tobacco: Never Vaping Use Vaping status: Never Used Substance Use Topics Alcohol use: Yes Comment: socially- twice a month Drug use: Never Prior to Admission medications as of 10/25/24 0838 Medication Sig Last Dose Taking aspirin 325 mg tablet Take 1 tablet by mouth once daily. Yes clopidogrel (PLAVIX) 75 mg tablet Take 1 tablet by mouth once daily. Yes venlafaxine HCl (EFFEXOR XR ORAL) Take 150 mg by mouth once daily. Yes cetirizine HCl (CETIRIZINE ORAL) Yes cyclobenzaprine (FLEXERIL) 10 mg tablet Take 10 mg by mouth. Yes meclizine (ANTIVERT) 25 mg tab Take 25 mg by mouth. Yes ondansetron orally disintegrating (ZOFRAN ODT) 4 mg disintegrating tablet Yes albuterol HFA (PROAIR HFA) 90 mcg/actuation inhaler Inhale 2 Puffs as instructed every 4 hours as needed for Wheezing/Shortness of Breath. Yes traZODone (DESYREL) 50 mg tablet Take 50 mg by mouth as needed for sedation. fluticasone (FLONASE) 50 mcg/actuation nasal spray 1-2 Sprays. Patient not taking: Reported on 07/10/2024 hydrocortisone 2.5 % cream Apply to affected area. pseudoephedrine (SUDAFED) 60 mg tablet Take 60 mg by mouth every 6 hours as needed. Patient not taking: Reported on 09/24/2024 albuterol sulfate 90 mcg/actuation aebs Inhale as instructed. Patient not taking: Reported on 07/10/2024 No medication comments found. ALLERGIES Allergen Reactions Liquid Bandage (Cya* Rash Generalized red, itchy, painful rash with skin peeling over abdomen despite area where liquid bandage was applied Objective PHYSICAL EXAM: General: alert and oriented and healthy appearance. Pertinent negatives noted - not distressed. Skin: normal color, no rash or lesions. HEENT: EOM intact, pupils equal round and pupils reactive to light. Cardiovascular: regular rate and rhythm, normal S1 and S2, no rub, murmurs, or gallop. Respiratory: normal breath sounds, no wheezes or crackles. Abdomen: bowel sounds present and soft. Pertinent negatives noted - not tender. Extremities: no deformity, no edema or tenderness, no joint swelling or clubbing. Neurological: normal cognition and motor skills. PAIN ASSESSMENT: VITALS: BP 117/74 Pulse 74 Temp (Src) 96.8 (Temporal) Resp 16 Ht 5' 7 (1.70m) Wt 155 lb 10.3 oz (70.6kg) SpO2 99% LMP 10/04/2024 BMI 24.37 kg/(m^2). Diagnostic tests reviewed for today's visit: Lab Value Units Date High Low HB 14.2 g/dL 09/25/2024 15.5 11.5 HCT 40.8 % 09/25/2024 46.0 36.0 WBC 8.45 k/uL 09/25/2024 11.00 3.70 PLT 228 k/uL 09/25/2024 400 150 NA 137 mmol/L 09/25/2024 144 136 K 4.2 mmol/L 09/25/2024 5.1 3.7 GLUC 97 mg/dL 09/25/2024 99 74 BUN 17 mg/dL 09/25/2024 21 7 CREAT 0.78 mg/dL 09/25/2024 0.96 0.58 PTSEC No results within date range. INR No results within date range. APTT No results within date range. ALT No results within date range. AST No results within date range. TBILI No results within date range. TSH No results within date range. Lab Value Units Date High Low HCGQT No results within date range. UHCG No results within date range. HCG, BODY* No results within date range. Lab Value Units Date High Low ABORHD No results within date range. ABSCREEN No results within date range. No results found for: HBA1C Instructions Given to Patient: Instructions located in the after visit summary. Patient given verbal and written preop instructions and voices comprehension and compliance. SIGNATURE: Goldy Rosas APRN.CNP PATIENT NAME: Tracy Harrington DATE: October 25, 2024 TIME: 8:51 AM PAGER/CONTACT #: documented in this encounter Plan of Treatment Upcoming Encounters Date Type Department Care Team (Latest Contact Info) Description 11/27/2024 8:40 AM EDT [facility] [address] [place] [address] Heladio Bustos MD [address] [place] [address] [facility] Post op Est patient 11/27/2024 3:00 PM EDT Appointment Radiology [address] [address] Dx: Pulsatile tinnitus, left ear [H93.A2] 12/03/2024 3:00 PM EDT [facility] [address] [place] [address] Royerrubens, Dionneh, PSYD [address] [place] [address] new consult for Tinnitus CBT per Dr. Montemayor documented as of this encounter Visit Diagnoses Diagnosis Pre-operative examination- Primary Preoperative examination, unspecified Pulsatile tinnitus, left ear Mild intermittent asthma without complication (HCC) Unspecified asthma PONV (postoperative nausea and vomiting) Nausea with vomiting * Assessment & Plan Note - Goldy Rosas APRN.CNP - 10/25/2024 8:48 AM EDT Associated Problem(s): PONV (postoperative nausea and vomiting) Hx of PONV. Patient has responded well to Zofran in the past. * Assessment & Plan Note - Goldy Rosas APRN.CNP - 10/25/2024 8:47 AM EDT Associated Problem(s): Asthma (HCC) Stable on Albuterol inhaler as needed. Patient requires the Albuterol once every week or two. documented in this encounter Care Teams Field Staff Relationship Specialty Start Date End Date Rufino Ayala PA-C [address] [place] [address] PCP - General Physician Processing Technologist 06/21/24 Rufino Ayala PA-C [address] [place] [address] Referring Physician Processing Technologist 04/16/24 Terry Kovacs MD [address] [place] [id number] Referring Ent - Otolaryngology 06/07/24 documented as of this encounter
--- OUTSIDE RECORDS SUMMARY | 2024-10-26 05:48 | XMS_ITS | Encounter Summary ---
Author Organization [facility] Address [address] [place] [address] Care Team Providers Care Compounder Helper Name Role Phone Rufino Ayala PA-C Unavailable [phone] Terry Kovacs MD Unavailable Rufino Ayala PA-C Primary Care Provider [phone] Source Comments In the event this information is protected by the Federal Confidentiality of Alcohol and Drug AbusePatient Records regulations: The Federal rules restrict any use of the information to criminally investigate or prosecute any alcohol or drug abuse patient.[facility] Reason for Visit * Auth/Cert (Routine) Specialty Diagnoses / Procedures Referred By Ambika t Referred To Contact ADMITTING Diagnoses Pulsatile tinnitus, left ear Pulsatile tinnitus, left ear [H93.A2] Procedures TCAT PERMANENT OCCLUSION/EMBOLIZATION PRQ ETHYLENE COMPRESSOR OPERATOR TRANSCATH EMBOLIZATION ETHYLENE COMPRESSOR OPERATOR INTRACRANIAL Admitting [address] [place] [address] Referral ID Status Reason Start Date Expiration Date Visits Re quested Visits Authorized [id number] 1 1 Encounter Details Date Type Department Care Team (Latest Contact Info) Description 10/26/2024 5:48 AM EDT - 10/27/2024 1:09 PM EDT Hospital Encounter HOSP MAIN [id number] [address] [place] [address] Suleman Bustos MD [address] [place] [address] Pulsatile tinnitus, left ear [H93.A2] Discharge Disposition: Home Social History Tobacco Use Types Packs/Day Years [...] is lower risk 4 10/02/2024 Data from: https://www.neighborhoodatlas.medicine.[facility].edu/. Last address used for calculation [address] [address] 10/02/2024 Comments No Sex and Gender Information Value Date Recorded Sex Assigned at Not on file Legal Sex Female 9:59 AM EDT Gender Identity Not on file Sexual Orientation Not on file documented as of this encounter Last Filed Vital Signs Vital Sign Reading Time Taken Comments Blood Pressure 107/59 10/27/2024 12:00 PM EDT Pulse 69 10/27/2024 12:00 PM EDT Temperature 36.6 C (97.8 F) 10/27/2024 12:00 PM EDT Respiratory Rate 18 10/27/2024 12:0 0 PM EDT Oxygen Saturation 98% 10/27/2024 12: 00 PM EDT Inhaled Oxygen Concentration - - Weight 65.7 kg (144 lb 13.5 oz) 10/27/2024 6:00 AM EDT Height 170.2 cm (5' 7.01 ) 10/26/2024 5:40 PM ED T Body Mass Index 22.68 10/26/2024 5:40 PM EDT documented in this encounter Discharge Summaries * Sandra Landry APRN.REGISTRY RN - 10/27/2024 11:28 AM EDT Images from the original note were not included. DISCHARGE SUMMARY CV NEUROSURGERY PATIENT NAME: Tracy Mckoy ADMISSION DATE: 10/26/2024 DISCHARGE DATE: 10/27/2024 Attending Physician: Suleman Bustos MD PCP: CORRY Arango, PA-C Code Status: Not on file Highest Readmission Risk Score: 6 The 30 day readmissions risk score is derived from an internally validated risk model which evaluates patient level characteristics, utilization history, medication orders and lab results up until the day of discharge. Patients with a score of 39 or above are considered highest risk for readmission. Specific patient level drivers will be listed at the bottom of the summary. Reason for Hospitalization: Pulsatile tinnitus Final Diagnosis: Active Hospital Problems Diagnosis POA Pulsatile tinnitus Yes Resolved Hospital Problems No resolved problems to display. Operations During Hospitalization: 10/26/2024 Successful left transverse-sigmoid stenting Procedures During Hospitalization: No procedures performed Stroke Mechanism: None Stroke Risk Factors: Hypertension NA Coronary Artery Disease NA Diabetes NA Obesity NA Dyslipidemia NA Tobacco Use (Please Update Smoking History) NA Stroke NA Intracranial Aneurysm NA Body Mass Index (BMI) BMI: 24.28 Total Cholesterol (at time of admission) No results found for this basename: chol:1 HDL (at time of admission) No results found for this basename: hdl:1 LDL (at time of admission) No results found for this basename: ldl:1 HbA1c No results found for: HBA1C Tests/Procedures Performed: 10/26/2024 angiogram successful left transverse-sigmoid stenting. 10/26/24 groin US negative for pseudoaneurysm, deep vein thrombosis, arteriovenous fistula, and hematoma Hospital Course: Open surgical intervention The patient was electively admitted to the [facility] with pulsatile tinnitus. After being optimized for surgery by the Preadmission Testing, Tracy Mckoy was identified and brought into the angiography suite by the anesthesia and nursing teams. . The patient underwent a Successful left transverse-sigmoid stenting on 10/26/2024. Patient was hemodynamically stable postoperatively. The patient tolerated the procedure and was taken to PACU, and then to the hospital surgical floor for further post operative management when discharge criteria from PACU was achieved..Patient DVT prophylaxis includes compression stockings . Patient's pain was well controlled with Oral medication(s). . Patient progressed satisfactorily to discharge. Based upon the appropriate milestones the patient met during the hospital course, discharged to home. The patient was discharged on 10/27/2024 in stable condition. Complete and comprehensive discharge instructions were provided to the patient as well as necessary prescriptions. The patient and/or family had no further questions and was advised to call with any questions, concerns, or problems that may arise. Transitions of Care Critical Issues: NEW BASELINE FOR PATIENT: Neuro below IMAGING FOLLOW-UP: 6 month MRV LAB MONITORING NEEDED: None SPECIALIST FOLLOW-UP: NSGY ABDULLAHI ALANIZ MEDICATION CHANGES: DAPT per protocol PROCEDURES SCHEDULED: None LABS AND PROCEDURES PENDING AT DISCHARGE: No pending results. Consulting Teams During Hospitalization: None Treatment Team: Attending Provider: Suleman Bustos MD Patient Condition @ Discharge: Good Discharge Disposition: Home with Relative BP 108/58 Pulse 81 Temp 36.3 ??C (97.3 ??F) Resp 10 Ht 170.2 cm (5' 7 ) Wt 70.3 kg (155 lb) LMP 10/04/2024 (Approximate) SpO2 99% BMI 24.28 kg/m?? Discharge Physical Exam: VITAL SIGNS: BP 101/66 Pulse 83 Temp 36.9 ??C (98.4 ??F) Resp 18 Ht 170.2 cm (5' 7.01 ) Wt 65.7 kg (144 lb 13.5 oz) LMP 10/04/2024 (Approximate) SpO2 98% BMI 22.68 kg/m?? General: A & O x 4. Appears stated age, well built, in no apparent distress. Psychiatric: Mood and affect: Appropriate. Skin: Color, texture, turgor normal. No rashes or lesions Incision: clean/dry/intact groin site CV: Normal heart sounds, rate, rhythm, pedal pulses. No audible murmurs, carotid bruits, LE edema..>Tele: normal sinus rhythm Respiratory: lungs CTA bilat Abdomen: Soft and Non-tender Musculoskeletal: Sensory: Normal sensory exam Gait: Normal Muscle strength: UE BICEPS TRICEPS DELTS Mortgage Loan Closer R 5/5 5/5 5/5 5/5 L 5/5 5/5 5/5 5/5 LE Hip Flex Knee Flex Knee Extend Plantarflex Dorsiflex EHL R 5/5 5/5 5/5 5/5 5/5 5/5 L 5/5 5/5 5/5 5/5 5/5 5/5 Reflexes: Long Tract Signs: No clonus, Babinski, or Hoffmans. CRANIAL NERVES: Pupils: OD Right: 3 mm Reactive OS Left: 3 mm Reactive II Visual cates: are full to confrontation III, IV, EOM full V Facial sensation normal VII Normal strength VIII Normal bilaterally IX, X Normal, midline palatal rise XI Symmetric shrug XII Tongue midline, mobile Drift: none Speech: fluent Hemineglect: none Discharge NIH stroke scale: NIHSS: NIHSS Score LOC 0 = Alert and Attentive LOC Questions 0 = Correct age and month LOC Commands 0 = Both LOC Normal Gaze 0 = Normal Visual Cates 0 = Full Facial Palsy 0 = Normal Motor Left Arm 0 = No drift Motor Right Arm 0 = No drift Motor Left Leg 0 = No drift Motor Right Leg 0 = No drift Limb Ataxia 0 = Absent Sensory 0 = Normal Language 0 = None Dysarthria 0 = Absent Extinction/Neglect 0 = Absent NIHSS Total (0-42): 0 Discharge MODIFIED MAIKOL SCORE: 0 = No symptoms at all Information Provided to Patient: WRITTEN Stroke Material Given Addressing: Signs and Symptoms of a Stroke, When to Call 911, Modifiable Risk Factors, Need for Follow-Up After Discharge, Medication Compliance and Smoking Cessation Advice Diet: Resume your pre-hospital diet Activity: Post angiogram activity instructions Wound/Surgical Site Care: Post angiogram wound care as on discharge instructions ALLERGIES Allergen Reactions Liquid Bandage (Cya* Rash Generalized red, itchy, painful rash with skin peeling over abdomen despite area where liquid bandage was applied Discharge Medications: Medication List START taking these medications acetaminophen 500 mg tablet Commonly known as: TYLENOL Take 2 tablets by mouth every 6 hours as needed for pain. dexAMETHasone 4 mg tablet Commonly known as: DECADRON Take 1 tablet by ORAL/FEEDING TUBE route two times a day with meals for 7 days, THEN a half tablet two times a day with meals for 7 days. Start taking on: October 27, 2024 iv contrast (will be provided with radiology test) CTV Head WO/W IVCON No IV access, insert saline lock prior to the sedation, infusion, injection forimaging exam. Discontinue saline lock post exam. If Pt. has a central line or IVAD, may access for administration according to line specific nursing protocol. Once exam is complete flush line and de-access according to line specific nursing protocol in the CT contrast administration guidelines link. methocarbamol 500 mg tablet Commonly known as: ROBAXIN Take 1 tablet by mouth three times a day as needed (Headache). CONTINUE taking these medications * albuterol HFA 90 mcg/actuation inhaler Commonly known as: PROAIR HFA Inhale 2 Puffs as instructed every 4 hours as needed for Wheezing/Shortness of Breath. aspirin 325 mg tablet Take 1 tablet by mouth once daily. CETIRIZINE ORAL clopidogrel 75 mg tablet Commonly known as: PLAVIX Take 1 tablet by mouth once daily. cyclobenzaprine 10 mg tablet Commonly known as: FLEXERIL EFFEXOR XR ORAL hydrocortisone 2.5 % cream KlonoPIN 1 mg tablet Generic drug: clonazePAM meclizine 25 mg Tab Commonly known as: ANTIVERT ondansetron orally disintegrating 4 mg disintegrating tablet Commonly known as: ZOFRAN ODT traZODone 50 mg tablet Commonly known as: DESYREL * This list has 1 medication(s) that are the same as other medications prescribed for you. Read thedirections carefully, and ask your doctor or other care provider to review them with you. ASK your doctor about these medications * albuterol sulfate 90 mcg/actuation Aebs fluticasone 50 mcg/actuation nasal spray Commonly known as: FLONASE pseudoephedrine 60 mg tablet Commonly known as: SUDAFED * This list has 1 medication(s) that are the same as other medications prescribed for you. Read thedirections carefully, and ask your doctor or other care provider to review them with you. Where to Get Your Medications These medications were sent to [facility] [address] [place] [address] Hours: Tuesday-Tuesday 7am-8pm, Tuesday, Tuesday and Holidays 9am-5pm dexAMETHasone 4 mg tablet methocarbamol 500 mg tablet You can get these medications from any pharmacy You don't need a prescription for these medications acetaminophen 500 mg tablet Plan of Care: Plan of care discussed with Provider, RN, Patient Future Appointments: Future Appointments Date Time Provider Department Center 10/26/2024 2:30 PM VL PORT 3 IP PVLBMN Main - J Bld 11/20/2024 8:40 AM Suleman Bustos MD [facility] [place] [facility] 12/03/2024 3:00 PM Deon Russell PSYD NREUS2 Main - S Bld The patient's risk for 30-day readmission is determined using the following contributing factors: Predictive Model Details 6% (Low) Factor Value Calculated 10/26/2024 02:24 -28% Admission Provider Speciality NEUROLOGY [facility] READMISSION RISK Model -18% Admissions (365d) 0 -15% Hospital Unit N/A -13% Diagnosis Count 3 -13% [facility] -12% ED visits (365d) 0 -12% Admissions (90d) 0 -9% RDW (Max) 12.1 8% Current Age 29 7% Calcium (Avg) 10.1 Discharge Readiness Checklist: Afebrile, stable vital signs last 24 hours: Yes Stable labwork last 24 hours: Yes Stable clinical examination last 24 hours: Yes Patient pain is consistently rated as tolerable last 24 hours: Yes Patient declines dysuria, frequency, or other symptoms of urinary tract infection: Yes Patient has access to discharge medications: Yes Patient has safe discharge location: Yes After discharge follow up appointments are assessed/coordinated: Yes Other: none I have performed the [id number] and relevant services for a total of >30 minutes. SIGNATURE: Sandra Landry APRN.CNP DATE: October 27, 2024 TIME: 11:42 AM Cosigned by Suleman Bustos MD at 10/29/2024 4:59 PM EDT Associated attestation - Suleman Bustos MD - 10/29/2024 4:59 PM EDT Attending Note: Alaniz findings confirmed. Patient examined. Discussed with the nurse practitioner and the patient. Plan as outlined. Suleman Bustos MD documented in this encounter Discharge Instructions * Discharge Instr - Other Orders* Sandra Landry APRN.CNP - 10/26/2024 2:05 PM EDT MY HOSPITAL STAY AND SUMMARY This is a summary of your hospital stay. Please read it carefully and share it with your family andhealthcare providers. Date of Admission: 10/26/2024 Date of Discharge: 10/27/2024 Where I Will be Going after Discharge: Home with Relative My Condition at Discharge: Good My Doctors and Medical Team: My Main Hospital Doctor: Dr. Suleman Bustos, Office My Primary Care Physician (Family Doctor): CORRY Arango, PA-C Other Medical Team Members: None YOUR PLAN OF CARE See below for activity and wound care It is very important that you take aspirin and plavix as instructed to prevent blood clots in your stent. Do not stop taking until instructed to do so by Dr. Bustos. Imaging follow up: 6 month MRV Neurosurgery follow up: as scheduled with Dr Bustos Additional follow up needed: None Appointments for Next 60 Days Date Time Provider Location Dept Phone 10/26/2024 2:30 PM VL PORT 3 IP Main - J Bld [phone] 11/20/2024 8:40 AM SULEMAN BUSTOS [place] [facility] [phone] 12/03/2024 3:00 PM DEON RUSSELL Main - S Bld [phone] If you have questions or clinical concerns: Normal business hours, please call your physician's office at Dr. Suleman Bustos, Office For urgent concerns: Nights and weekends, call [phone] or and ask for the neurosurgery resident concrete layer. The Reason I was in the Hospital/Main Diagnosis: Pulsatile tinnitus Summary of What Happened When in the Hospital: You were electively admitted to the [facility] for an elective procedureto treat pulsatile tinnitus. You underwent a Successful left transverse-sigmoid stenting on 10/26/2024 . After being monitored in the recovery area, you were transferred to SDU following your procedurefor continued after- procedure care. While hospitalized, your blood clot (venous thromboembolism, or DVT/VTE) prevention included compression stockings . Your pain was well controlled with Oral medication(s). . You progressed satisfactorily to discharge. Based upon the appropriate milestones you met during the hospital course, discharge to Rapid Recovery- discharged home is recommended. You are discharged on 10/27/2024 in stable condition. Complete and comprehensive discharge instructions are provided to you here, along with necessary prescriptions. Please call [phone] with any questions, concerns, or problems that may arise. Other Problem(s)/Diagnosis: Principal Problem: Pulsatile tinnitus Resolved Problems: * No resolved hospital problems. * Stroke Risk Factors: Hypertension NA Coronary Artery Disease NA Diabetes NA Obesity NA Dyslipidemia NA Tobacco Use (Please Update Smoking History) NA Stroke NA Intracranial Aneurysm NA Tests/Procedures Performed: 10/26/2024 Successful left transverse-sigmoid stenting Operations Performed: None Height/Weight (at time of admission): Height: 170.2 cm (5' 7 ) Weight: 70.3 kg (155 lb) Body Mass Index (BMI): BMI: 24.28 Total Cholesterol (at time of admission): No results found for this basename: chol:1 HDL (at time of admission): No results found for this basename: hdl:1 LDL (at time of admission): No results found for this basename: ldl:1 HbA1C: No results found for: HBA1C Pending Results: No pending results. Activity after Discharge: Activity Guidelines Post Procedure You will need to take it easy for the first week after the procedure. Avoid heavy lifting (more than 10 pounds) and pushing or pulling heavy objects for the first week after the procedure. Do not participate in strenuous activities for 5 days after the procedure. This includes most sports - jogging, golfing, playing tennis, bowling. Gradually increase your activities until you reach your normal activity level within one week afterthe procedure. Returning to Work Most people are able to return to work within 1 to 2 weeks after an interventional procedure. Additional Instructions: It is very important that you take aspirin and plavix as instructed to prevent blood clots in your stent. Do not stop taking until instructed to do so by Dr. Bustos. Diet: Regular Treatment/Wound Care: Care for the Angiogram Catheter Insertion Site When you go home, there will be a bandage over the catheter insertion site. The morning after your procedure, you may take the dressing off. The easiest way to do this is when you are showering afterthe bandage has become wet. After the bandage is removed, you may cover the area with a small adhesive bandage. It is normal for the catheter insertion site to be bruised for a couple of days. The site may also be slightly swollen and pink, and there may be a small lump (about the size of a quarter) at the site. Wash the catheter insertion site at least once daily with soap and water. Place soapy water on your hand or wash- cloth and gently wash the insertion site; do not rub. Keep the area clean and dry when you are not showering. Do not use creams, lotions or ointment on the wound site. Wear loose clothes and loose underwear if you had a groin access site. Do not take a bath, tub soak, go in a Jacuzzi, or swim in a pool or pisano for one week after the procedure. When to Seek Emergency Treatment Go to your local emergency department, [facility] Emergency Department, or call 911 if you are experiencing: Chest pain or discomfort (angina-like) that lasts for 5 minutes and is not relieved by rest or medications Bleeding from the catheter insertion site. Although bleeding is rare, if it does occur, remove all of the dressing over the site. Use a clean compress (clean gauze, wash cloth) to apply pressure directly on the site. If the catheter was inserted at the arm, apply the pressure to the site while keeping your arm straight and raised above the level of your heart. If the catheter was inserted at the groin, lie down and apply pressure to the site. Call 911 if the bleeding has not stopped after 20 minutes. As soon as emergency personnel arrive, they will take over your care. Fast heart rate - more than 150 beats per minute New irregular heart beat Shortness of breath NOT relieved by rest Sudden numbness, weakness in arms or legs Fainting spells When to Call the Doctor Call your [facility] provider, or your local doctor if you have: Pus-like drainage, redness or unusual warmth at the catheter insertion site Feelings of coldness, numbness, tingling or excessive swelling on the leg or arm of the wound site Excessive swelling consists of a golf-ball sized lump at the wound site Extreme pain or swelling at the catheter insertion site Signs of infection: Redness, warmth, drainage at the wound site or a fever (temperature over 101 degrees Fahrenheit) Signs of activity intolerance that last longer than 20 minutes or that return on a regular basis, including chest discomfort, excessive shortness of breath, dizziness or irregular heartbeats Questions about your procedure, medications, follow-up schedule or treatment plan Pain Control: Adequate management Appointments: Future Appointments Date Time Provider Department Center 10/26/2024 2:30 PM VL PORT 3 IP PVLBMN Main - J Bld 11/20/2024 8:40 AM Suleman Bustos MD [facility] [place] [facility] 12/03/2024 3:00 PM Deon Russell PSYD NREUS2 Main - S Bld Please remember to discard old medication lists and to update your records with all your healthcareproviders and retail pharmacies. An appointment has been requested for you to see us in follow up. Please call [phone] if you have any questions about your appointment. Additional Health Information I Need to Know After I Leave the Hospital: No additional instructions. Imaging follow up: 6 month [facility] Neurosurgery follow up: as scheduled with Dr Bustos Additional follow up needed: None Stroke Specific Follow Up Instructions: Patient, please be sure to review all of your medications - some of your medications may have been changed or new medications added. Stroke Signs and Symptoms: You will always be at an increased risk of stroke. Stroke is a medical emergency. Know these warning signs of stroke: Sudden numbness or weakness of the face, are or leg, especially on one side of the body Sudden confusion, trouble speaking, or understanding Sudden trouble seeing in one eye, or both eyes Sudden trouble walking, dizziness, loss of balance, or coordination Sudden severe headache with no known cause If you, or someone with you, has one or more of these signs, don't delay! Immediately call 911, or the emergency medical services (EMS) number so an ambulance can be sent for you. Also, check the time so that you will know when the symptoms first appeared. It is very important to take immediate action, every second counts. Medical treatment may be available if action is taken early enough. Electronically Signed: Sandra Landry APRN.CNP If you have questions or clinical concerns: Normal business hours, please call your physician's office at Dr. Suleman Bustos, Office For urgent concerns: Nights and weekends, call [phone] or and ask for the neurosurgery resident concrete layer. documented in this encounter Medications at Time of Discharge acetaminophen (TYLENOL) 500 mg tablet Take 2 tablets by mouth every 6 hours as needed for pain. 06/07/202 5 methocarbamol (ROBAXIN) 500 mg tablet Take 1 tablet by mouth three times a day as needed (Headache). 30 tablet 10/27/2024 1:12 PM EDT 5 dexAMETHasone (DECADRON) 4 mg tablet Take 1 tablet by ORAL/FEEDING TUBE route two times a day with meals for 7 days, THEN a half tablet two times a day with meals for 7 days. 21 tablet 10/27/2024 1:12 PM EDT 5 11/11/19 25 clonazePAM (KLONOPIN) 1 mg tablet Take 1 mg by mouth two times a day as needed for anxiety. aspirin 325 mg tablet Take 1 tablet by mouth once daily. 30 tablet 5 5 03/31/20 25 clopidogrel (PLAVIX) 75 mg tablet Take 1 tablet by mouth once daily. 31 tablet 1 5 venlafaxine HCl (EFFEXOR XR ORAL) Take 150 mg by mouth once daily. traZODone (DESYREL) 50 mg tablet Take 50 mg by mouth as needed for sedation. cetirizine HCl (CETIRIZINE ORAL) 3 cyclobenzaprine (FLEXERIL) 10 mg tablet Take 10 mg by mouth. 2 fluticasone (FLONASE) 50 mcg/actuation nasal spray 1-2 Sprays. 4 04/11/20 25 hydrocortisone 2.5 % cream Apply to affected area. 4 meclizine (ANTIVERT) 25 mg tab Take 25 mg by mouth. 3 pseudoephedrine (SUDAFED) 60 mg tablet Take 60 mg by mouth every 6 hours as needed. 4 albuterol sulfate 90 mcg/actuation aebs Inhale as instructed. albuterol HFA (PROAIR HFA) 90 mcg/actuation inhalerIndications: Mild intermittent asthma without complication (HCC),Cough,Low grade fever Inhale 2 Puffs as instructed every 4 hours as needed for Wheezing/Shortness of Breath. 1 Inhaler 1 0 iv contrast (will be provided with radiology test) CTV Head WO/W IVCON No IV access, insert saline lock prior to the sedation, infusion, injection for imaging exam. Discontinue saline lock post exam. If Pt. has a central line or IVAD, may access for administration according to line specific nursing protocol. Once exam is complete flush line and de-access according to line specific nursing protocol in the CT contrast administration guidelines link. 1 each 10/29/19 ondansetron orally disintegrating (ZOFRAN ODT) 4 mg disintegrating tablet 7 10/30/19 documented as of this encounter Progress Notes * Suleman Bustos MD - 10/27/2024 10:42 AM EDT ENDOVASCULAR SURGICAL NEURORADIOLOGY Progress Note SERVICE DATE: 10/27/2024 SERVICE TIME: 10:31 CHIEF COMPLAINT: pulsatile tinnitus HPI: Tracy Mckoy is a 29 year old female, who is post-procedure day #1 after stenting of theleft transverse sinus OVERNIGHT EVENTS: panic attach last night with recurrent pulsatile tinnitus symptoms. Continues to have pulsatile tinnitus. Headache comes and goes. Nausea this morning improved after zofran and getting breakfast. FUNCTIONAL STATUS: Independent Current Facility-Administered Medications Medication Dose Route Frequency Provider Last Rate Last Admin aspirin 325 mg tab(s) 325 mg ORAL DAILY Graciela Neal APRN.REGISTRY RN 325 mg at 10/27/24 0757 clopidogrel 75 mg tab(s) (PLAVIX) 75 mg ORAL DAILY Graciela Neal APRN.REGISTRY RN 75 mg at 10/27/24 0757 acetaminophen 1,000 mg tab(s) (TYLENOL) 1,000 mg ORAL q 6 H PRN Graciela Neal APRN.REGISTRY RN 1,000 mg at10/27/24 0756 methocarbamol 500 mg tab(s) (ROBAXIN) 500 mg ORAL TID PRN Graciela Neal APRN.REGISTRY RN 500 mg at 10/26/24 1415 venlafaxine ER 150 mg cap(s) (EFFEXOR XR) 150 mg ORAL DAILY Graciela Neal APRN.REGISTRY RN 150 mg at 10/27/24 0943 NaCl 0.9% iv flush bag 20 mL INTRAVENOUS PRN Graciela eNal APRN.REGISTRY RN clonazePAM 1 mg tab(s) (KlonoPIN) 1 mg ORAL TID PRN Graciela Neal APRN.REGISTRY RN 1 mg at 10/26/24 1543 ondansetron orally disintegrating 4 mg tab(s) (ZOFRAN ODT) 4 mg ORAL q 8 H PRN Graciela Neal, PROCESS CHEMIST.REGISTRY RN 4 mg at 10/26/24 1856 dexAMETHasone 4 mg tab(s) (DECADRON) 4 mg ORAL/FEEDING TUBE q 6 H Graciela Neal, PROCESS CHEMIST.REGISTRY RN 4 mg at 10/27/24 0528 ALLERGIES Allergen Reactions Liquid Bandage (Cya* Rash Generalized red, itchy, painful rash with skin peeling over abdomen despite area where liquid bandage was applied PHYSICAL EXAM: BP 101/66 Pulse 83 Temp (Src) 98.4 (Oral) Resp 18 Ht 5' 7.008 (1.70m) Wt 144 lb 13.5 oz (65.7kg) SpO2 98% LMP 10/04/2024 BMI 22.68 kg/(m^2). O2 Therapy: Room Air GENERAL: Not in acute distress, pleasant female, well-developed, well-nourished ACCESS SITE: clean, dry, dressing intact. No induration or hematoma NEUROLOGICAL: Mental status: Alert, awake and oriented x3. Speech fluent. Cranial nerves: Pupils equal, reactive. EOMI. Visual cates full. Normal facial sensation. No facial asymmetry. Uvula midline, symmetric palatal elevation. Symmetric shoulder shrug. Tongue midline. Motor: Normal bulk, tone and strength bilaterally. No pronator drift. Sensory: Normal to soft touch, pinprick, temperature bilaterally. ASSESSMENT/PLAN: 29 year old female with pulsatile tinnitus, symptoms continue despite stenting yesterday. She is eager to have TM reconstruction with Dr. Kovacs. We discussed the plan in detail. She needs to be on Aspirin and Plavix for at least 3 months. I will get a CTV at 1 month to check stent, if there is incomplete apposition or stenosis, we will schedule her for elective angioplasty, then CTV at 3 months and discontinue Plavix at that time if stent looks good. ENT surgery would then be feasible in January at the earliest. I will coordinate with Dr. Kovacs. She had a panic attack last night when pulsatile tinnitus increased during eating. We discussed heranxiety and desperation around the symptoms. She denies suicidality but admits to being overwhelmedand desperate. I will coordinate with Dr. Russell from psychology to get an established provider. I encouraged Tracy to reach out to us if overwhelmed and we can help expedite care. I encouraged her to seek immediate help at the closest ER if she is having suicidal thoughts. - anticipate discharge today - continue Aspirin and Plavix - Robaxin and Decadron protocol for headaches - CTV (photon counting, ultra high resolution at [facility]) in 1 month - follow up in my clinic after CTV - will coordinate with Dr. Kovacs on timing of ENT surgery - psychiatric care with Dr. Russell SIGNATURE: Suleman Bustos MD PATIENT NAME: Tracy Mckoy DATE: October 27, 2024 TIME: 10:42 AM PAGER/CONTACT #: [phone] * Celeste Goldman MD - 10/26/2024 10:20 AM EDT Neuroendovascular Immediate Post-Op Note October 26, 2024 10:20 AM Examination: GEN: NAD CVS: RRR. RESP: normal effort. NEURO: AAOx3. Speech clear, fluent. PERRLA. Facial sensation intact. No facial droop. Tongue midline. Strength 5/5 throughout (LLE not tested against gravity). Sensation intact to light touch throughout. Intact FTN. Gait deferred. Access Site: Left common femoral artery (5Fr); closed with Vascade; Left common femoral vein (8Fr);closed with MVP Pulses: Intact Assessment: - Left transverse sinus re-visualization of narrowing - Successful left transverse-sigmoid stenting - Full report to follow. Plan: - PACU --> Neuro SDU - SBP 100-160 mmhg - ASA 325 mg and plavix 75 mg daily (next dose tonight @ 2000 hrs) ordered. Continue for 3 months. - Headache cocktail ordered - R groin US - Photon counting ultra high resolution CTV in 3 months for verification of stent. - Vascular/Neurological/Access checks as per order set Celeste Goldman MD ESNR Fellow [phone] documented in this encounter Nursing Notes * Doris Luis RN - 10/27/2024 1:09 PM EDT Transfer Note: PATIENT NAME: Tracy Mckoy Patient Location: [place] [address]/ Room: [place] [address] Patient transferred out to room/unit in stable condition. Actions taken: No futher actions taken atthis time. Will continue to monitor and check with patient. Patient belongings with patient documented in this encounter OR Notes * Brief Op Note - Celeste Goldman MD - 10/26/2024 9:47 AM EDT BRIEF OP/PROCEDURE NOTE NEURO INTERVENTIONAL PROCEDURE DATE: October 26, 2024 LOG ID: [id number] Surgery/Procedure Date: 10/26/2024 Incision/Procedure Start Time: 8:32 AM Incision Close/Procedure End Time: 9:45 AM Anesthesia: General PRIMARY PROCEDURALIST: Suleman Bustos MD ANIMAL DOCTOR(S): Celeste Goldman MD CASE STATUS: Outpatient/Elective PROCEDURE: Venous stenting Indications: Left pulsatile tinnitus Access Site: LCFA 5Fr sheath closed w Vascade, LCFV 8Fr sheath closed w MVP PRE-PROCEDURE DIAGNOSIS: Left pulsatile tinnitus POST-PROCEDURE DIAGNOSIS: Same FINDINGS: - Left transverse sinus re-visualization of narrowing - Successful left transverse-sigmoid stenting - Full report to follow. ESTIMATED BLOOD LOSS: Scant COMPLICATIONS: None RADIATION DOSE: Exceeded 5 Gy - No SPECIMENS: Not Applicable SIGNATURE: Celeste Goldman MD PATIENT NAME: Tracy Mckoy DATE: October 26, 2024 TIME: 9:49 AM documented in this encounter Miscellaneous Notes * Plan of Care - Jessica Dang - 10/27/2024 1:09 PM EDT Images from the original note were not included. PHARMACY BEDSIDE DELIVERY SERVICE Patient Name: Tracy Mckoy The marked outpatient medications were Filled at: [facility] and delivered to the patient's bedside to PATIENT Medication List START taking these medications acetaminophen 500 mg tablet Commonly known as: TYLENOL Take 2 tablets by mouth every 6 hours as needed for pain. Has at home dexAMETHasone 4 mg tablet Commonly known as: DECADRON Take 1 tablet by ORAL/FEEDING TUBE route two times a day with meals for 7 days, THEN a half tablet two times a day with meals for 7 days. Start taking on: October 27, 2024 DELIVERED iv contrast (will be provided with radiology test) CTV Head WO/W IVCON No IV access, insert saline lock prior to the sedation, infusion, injection forimaging exam. Discontinue saline lock post exam. If Pt. has a central line or IVAD, may access for administration according to line specific nursing protocol. Once exam is complete flush line and de-access according to line specific nursing protocol in the CT contrast administration guidelines link. IN-PATIENT methocarbamol 500 mg tablet Commonly known as: ROBAXIN Take 1 tablet by mouth three times a day as needed (Headache). DELIVERED CONTINUE taking these medications * albuterol HFA 90 mcg/actuation inhaler Commonly known as: PROAIR HFA Inhale 2 Puffs as instructed every 4 hours as needed for Wheezing/Shortness of Breath. aspirin 325 mg tablet Take 1 tablet by mouth once daily. CETIRIZINE ORAL clopidogrel 75 mg tablet Commonly known as: PLAVIX Take 1 tablet by mouth once daily. cyclobenzaprine 10 mg tablet Commonly known as: FLEXERIL EFFEXOR XR ORAL hydrocortisone 2.5 % cream KlonoPIN 1 mg tablet Generic drug: clonazePAM meclizine 25 mg Tab Commonly known as: ANTIVERT ondansetron orally disintegrating 4 mg disintegrating tablet Commonly known as: ZOFRAN ODT traZODone 50 mg tablet Commonly known as: DESYREL * This list has 1 medication(s) that are the same as other medications prescribed for you. Read thedirections carefully, and ask your doctor or other care provider to review them with you. You might also be taking other medications not listed above. If you have questions about any of your other medications, talk to the person who prescribed them or your Primary Care Provider. ASK your doctor about these medications * albuterol sulfate 90 mcg/actuation Aebs fluticasone 50 mcg/actuation nasal spray Commonly known as: FLONASE pseudoephedrine 60 mg tablet Commonly known as: SUDAFED * This list has 1 medication(s) that are the same as other medications prescribed for you. Read thedirections carefully, and ask your doctor or other care provider to review them with you. Jessica Dang October 27, 2024 1:33 PM documented in this encounter Plan of Treatment Upcoming Encounters Date Type Department Care Team (Latest Contact Info) Description 11/27/2024 8:40 AM EDT [facility] Neurology [address] [place] [address] Suleman Bustos MD [address] [place] [address] Dx Hospital DC Post op Est patient 11/27/2024 3:00 PM EDT Appointment Radiology [address], [place] [address] Dx: Pulsatile tinnitus, left ear [H93.A2] 12/03/2024 3:00 PM EDT [facility] Neurological [address] [place] [address] eDon Russell, PSYD [address] [place] [address] new consult for Tinnitus CBT per Dr. Russell documented as of this encounter Procedures Procedure Name Priority Date/Time Associated Diagnosis Comments COMPLETE BLOOD COUNT Routine 10/27/2024 5:59 AM EDT BASIC METABOLIC PANEL Routine 10/27/2024 5:59 AM EDT [facility] Routine 10/26/2024 2:46 PM EDT TCAT PERMANENT OCCLUSION/EMBOLIZAT ION PRQ ETHYLENE COMPRESSOR OPERATOR 10/26/2024 7:48 AM EDT Pulsatile tinnitus, left ear documented in this encounter Results * (ABNORMAL) BASIC METABOLIC PANEL (10/27/2024 5:59 AM EDT) [facility] Signature Glucose 124(H) 74 - 99 mg/dL 10/27/2024 8:50 AM EDT [facility] Comment: The [place] Diabetes [employer] (ADA) provides guidance for cutoff values for fasting glucose and random glucose. The ADA defines fasting as no caloric intake for at least 8 hours. Fasting plasma glucose results between 100 to 125 mg/dL indicate increased risk for diabetes (prediabetes). Fasting plasma glucose results greater than or equal to 126 mg/dL meet the criteria for diagnosis of diabetes. In the absence of unequivocal hyperglycemia, results should be confirmed by repeat testing. In a patient with classic symptoms of hyperglycemia or hyperglycemic crisis, random plasma glucose results greater than or equal to 200 mg/dL meet the criteria for diagnosis of diabetes. Reference: Standards of Medical Care in Diabetes 2016, [place] [employer] Association. Diabetes Care. 2016.39(Suppl 1). BUN 14 7 - 21 mg/dL 10/27/2024 8:50 AM [facility] Creatinine 0.68 0.58 - 0.96 mg/dL 10/27/2024 8:50 AM [facility] Sodium 137 136 - 144 mmol/L 10/27/2024 8:50 AM [facility] Potassium 4.2 3.7 - 5.1 mmol/L 10/27/2024 8:50 AM [facility] Chloride 106 98 - 107 mmol/L 10/27/2024 8:50 AM [facility] CO2 20(L) 22 - 30 mmol/L 10/27/2024 8:50 AM [facility] Anion Gap 11 8 - 15 mmol/L 10/27/2024 8:50 AM [facility] Calcium, Total 8.5 8.5 - 10.2 mg/dL 10/27/2024 8:50 AM [facility] Estimated Glomerular Filtration Rate 121 >=60 mL/min/1.7 3m 10/27/2024 8:50 AM [facility] Comment:Estimated Glomerular Filtration Rate (eGFR) is calculated using the 2020 CKD-EPI creatinine equation. This equation utilizes serum creatinine, sex, and age as parameters. The creatinine assay has traceable calibration to isotope dilution- mass spectrometry. Refer to KDIGO guidelines for clinical interpretation. In patients with unstable renal function, e.g. those with acute kidney injury, the eGFR may not accurately reflect actual GFR. Blood BLOOD SPECIMEN / Unknown Venipuncture / Unknown 10/27/2024 5:59 AM EDT 10/27/2024 6:32 AM EDT us Graciela Neal PROCESS CHEMIST.REGISTRY RN LABORATORY Final Resu lt [facility] [address] [place] [id number], [place] * (ABNORMAL) COMPLETE BLOOD COUNT (10/27/2024 5:59 AM EDT) WBC 12.86(H) 3.70 - 11.00 k/uL 10/27/2024 6:38 AM EDT [facility] RBC 3.91 3.90 - 5.20 m/uL 10/27/2024 6:38 AM EDT [facility] Hemoglobin 12.3 11.5 - 15.5 g/dL 10/27/2024 6:38 AM EDT [facility] Hematocrit 34.7(L) 36.0 - 46.0 % 10/27/2024 6:38 AM EDT [facility] MCV 88.7 80.0 - 100.0 fL 10/27/2024 6:38 AM EDT [facility] MCH 31.5 26.0 - 34.0 pg 10/27/2024 6:38 AM EDT [facility] MCHC 35.4 30.5 - 36.0 g/dL 10/27/2024 6:38 AM EDT [facility] RDW-CV 12.0 11.5 - 15.0 % 10/27/2024 6:38 AM EDT [facility] Platelet Count 180 150 - 400 k/uL 10/27/2024 6:38 AM EDT [facility] MPV 10.6 9.0 - 12.7 fL 10/27/2024 6:38 AM EDT [facility] Absolute nRBC <0.01 <0.01 k/uL 10/27/2024 6:38 AM EDT [facility] Blood BLOOD SPECIMEN / Unknown Venipuncture / Unknown 10/27/2024 5:59 AM EDT 10/27/2024 6:32 AM EDT us Graciela Braun Ángel PROCESS CHEMIST.REGISTRY RN LABORATORY Final Resu lt [facility] [address] [facility] [address] [place] [address], [place] * [facility] (10/26/2024 2:46 PM EDT) 10/26/2024 2:46 PM EDT [facility]ative [facility] - 10/26/2024 4:28 PM EDT Non-Invasive Vascular Laboratory [facility] Portable Lower Extremity Arterial Duplex for Pseudoaneurysm Unilateral - Right Date of service/time: 10/26/2024 2:46:48 PM Name: TRACY MCKOY Date of : 1995 Age: 29 years Gender: F Clinical Indication Complication from vascular device, implant, or graft. TECHNIQUE -------- An arterial duplex ultrasound examination was performed, including grayscale imaging and color Doppler and spectral Doppler examination of the below mentioned arteries. FINDINGS -------- RIGHT SIDE Internal iliac artery distal : PSV: 167 cm/s. EDV: 31 cm/s. Multiphasic waveform. Common femoral artery mid : PSV: 145 cm/s. EDV: 26 cm/s. Multiphasic waveform. Profunda femoral artery proximal : PSV: 120 cm/s. EDV: 36 cm/s. Monophasic, intermediate resistive waveform. Superficial femoral artery origin : PSV: 121 cm/s. EDV: 25 cm/s. Multiphasic waveform. Superficial femoral artery proximal : PSV: 118 cm/s. EDV: 18 cm/s. Multiphasic waveform. External iliac vein: Doppler: normal flow. Compression: normal. Common femoral vein: Doppler: normal flow. Compression: normal. Femoral vein: Doppler: normal flow. Compression: normal. IMPRESSION RIGHT SIDE Negative for pseudoaneurysm, deep vein thrombosis, arteriovenous fistula and hematoma. External iliac artery patent at distal . Common femoral artery patent at mid . Profunda femoral artery patent at proximal . Superficial femoral artery patent at from origin to proximal . Technologist: Hasmukh Tierney RVT Ordering physician: SULEMAN BUSTOS Interpreting physician: Sesar Bryant DO Final See Link below for Image us Suleman Bustos MD VASCULAR LAB Final Result [facility] [address] [place] [address] documented in this encounter Visit Diagnoses Diagnosis Pulsatile tinnitus- Primary Unspecified tinnitus * Assessment & Plan Note - Graciela Neal APRN.REGISTRY RN - 10/26/2024 1:57 PM EDT Associated Problem(s): Pulsatile tinnitus 10/26/2024 Successful left transverse-sigmoid stenting Maintain aspirin + clopidogrel Neuro/ vascular checks per protocol PAD #1 labs Follow up one month NSGY ABDULLAHI documented in this encounter Admitting Diagnoses Diagnosis Pulsatile tinnitus Unspecified tinnitus documented in this encounter Administered Medications Inactive Administered Medications - up to 3 most recent administrations Medication Order MAR Action Action Date Dose Rate Site acetaminophen 1,000 mg tab(s) (TYLENOL) 1,000 mg, ORAL, EVERY 6 HOURS NEEDED, Starting on Tue10/26/24 at 1352, Until Tue10/27/24 at 1509, fever (specify temp.), Mild Pain (1-3) - Enteral, Headache, Temp >38.5C Maximum acetaminophen dose in all forms combined = 4,000mg/24 hours, If ordered PRN for pain, patient/guardian may elect to receive this medication for higher pain levels INSTEAD of the opioid, if preferred: Yes Given 10/27/2024 7:56 AM EDT 1,000 mg Given 10/26/2024 5:58 PM EDT 1,000 mg aspirin 325 mg tab(s) 325 mg, ORAL, DAILY, First dose (after last reorder) on Tue10/26/24 at 2000, Until Discontinued Given 10/27/2024 7:57 AM EDT 325 mg Given 10/26/2024 8:33 PM EDT 325 mg clonazePAM 1 mg tab(s) (KlonoPIN) 1 mg, ORAL, 2 TIMES DAILY NEEDED, Starting on Tue10/26/24 at 1352, Until Tue10/26/24 at 1526, Anxiety - First Line - Enteral, Hazardous Potential Reproductive Risk Drug: Use appropriate PPE. Given 10/26/2024 2:15 PM EDT 1 mg clonazePAM 1 mg tab(s) (KlonoPIN) 1 mg, ORAL, 3 TIMES DAILY NEEDED, Starting on Tue10/26/24 at 1525, Until Tue10/27/24 at 1509, Anxiety - First Line - Enteral, Hazardous Potential Reproductive Risk Drug: Use appropriate PPE. Given 10/26/2024 3:43 PM EDT 1 mg clopidogrel 75 mg tab(s) (PLAVIX) 75 mg, ORAL, DAILY, First dose (after last reorder) on Tue10/26/24 at 2000, Until Discontinued Given 10/27/2024 7:57 AM EDT 75 mg Given 10/26/2024 8:33 PM EDT 75 mg dexAMETHasone 4 mg tab(s) (DECADRON) 4 mg, ORAL/FEEDING TUBE, EVERY 6 HOURS, First dose on Tue10/26/24 at 1800, Until Discontinued Given 10/27/2024 11:40 AM EDT 4 mg Oral Given 10/27/2024 5:28 AM EDT 4 mg Or al Given 10/27/2024 12:06 AM EDT 4 mg O ral dexAMETHasone sodium phosphate 4 mg injection (DECADRON) 4 mg, INTRAVENOUS, EVERY 6 HOURS, First dose on Tue10/26/24 at 1030, Until Discontinued, Administer over 5 minutes., Recovery or Phase I (only) Given 10/26/2024 10:40 AM EDT 4 mg diphenhydrAMINE 25 mg injection (BENADRYL) 25 mg, INTRAVENOUS, ONCE, 1 dose, On Tue10/26/24 at 2100 Given 10/26/2024 8:58 PM EDT 25 mg diphenhydrAMINE 25-50 mg injection (BENADRYL) 25-50 mg, INTRAVENOUS, EVERY 6 HOURS NEEDED, 2 doses, Starting on Tue10/26/24 at 0959, Until Tue10/26/24 at 1241, Nausea/Vomiting - First Line - Parenteral, Recovery or Phase I (only) Given 10/26/2024 10:23 AM EDT 50 mg fentaNYL 50 mcg/mL 25-50 mcg injection (SUBLIMAZE) 25-50 mcg, INTRAVENOUS, EVERY 10 MINUTES NEEDED, Starting on Tue10/26/24 at 0959, Until Tue10/26/24 at 1241, Mild Pain (1-3) - Parenteral, Moderate Pain (4-6) - Parenteral, Severe Pain (>/=7) - Parenteral, May repeat every 10 minutes (MAX: 250 mcg) If pain score remains greater than 4 after maximal dose achieved, contact PACU vice president digital strategist/LIP/staff for reassessment. Give 25 mcg for mild pain (1-3) Give 50 mcg for moderate pain (4-6) and severe pain (>/=7), Recovery or Phase I (only) Given 10/26/2024 10:33 AM EDT 50 mcg HYDROmorphone 0.5 mg injection (DILAUDID) 0.5 mg, INTRAVENOUS, EVERY 10 MINUTES NEEDED, Starting on Tue10/26/24 at 1112, Until Tue10/26/24 at 1352, breakthrough pain, May repeat every 10 minutes (MAX: 2 mg) If pain score remains greater than 4 after maximal dose achieved, contact PACU vice president digital strategist/LIP/staff for reassessment. Caution: IV hydromorphone is approximately 8 times MORE POTENT than IV morphine. For example, hydromorphone 1mg IV = morphine 8mg IV Given 10/26/2024 12:22 PM EDT 0.5 mg Given 10/26/2024 11:14 AM EDT 0.5 mg magnesium sulfate iv piggyback in sterile water 2 g 50 mL 2 g, INTRAVENOUS, at 25 mL/hr, Administer over 2 Hours, DAILY, 2 doses, First dose on Tue10/26/24 at 1030, Last dose on Tue10/27/24 at 0900, Magnesium sulfate iv bolus will be infused at a rate of 1 gram/hr The following nursing units may administer 2 g dose over 1 hour if necessary: ICUs/PACU/ED, Adult Hematology/Oncology, Labor and Delivery, Cardiac Stepdown, Headache Clinic If necessary, a magnesium sulfate bolus may be administered greater than 2 g/hr for the following indications: Adult and Pediatric Asthma Exacerbations, Torsade de Pointes, Pediatric BMT and Hematology/Oncology, Eclampsia or Preeclampsia, Recovery or Phase I (only) New Bag/Syringe/Bottle 10/26/2024 10:40 AM EDT 2 g 25 mL/hr magnesium sulfate iv piggyback in sterile water 2 g 50 mL 2 g, INTRAVENOUS, at 25 mL/hr, Administer over 2 Hours, DAILY, 1 dose, First dose (after last reorder) on 10/27/24 at 0900, Magnesium sulfate iv bolus will be infused at a rate of 1 gram/hr The following nursing units may administer 2 g dose over 1 hour if necessary: ICUs/PACU/ED, Adult Hematology/Oncology, Labor and Delivery, Cardiac Stepdown, Headache Clinic If necessary, a magnesium sulfate bolus may be administered greater than 2 g/hr for the following indications: Adult and Pediatric Asthma Exacerbations, Torsade de Pointes, Pediatric BMT and Hematology/Oncology, Eclampsia or Preeclampsia New Bag/Syringe/Bottle 10/27/2024 7:57 AM EDT 2 g 25 mL/hr magnesium sulfate iv piggyback in sterile water 2 g 50 mL 2 g, INTRAVENOUS, at 25-50 mL/hr, Administer over 1-2 Hours, ONCE, 1 dose, On Tue10/26/24 at 2100, Magnesium sulfate iv bolus will be infused at a rate of 1 gram/hr The following nursing units may administer 2 g dose over 1 hour if necessary: ICUs/PACU/ED, Adult Hematology/Oncology, Labor and Delivery, Cardiac Stepdown, Headache Clinic If necessary, a magnesium sulfate bolus may be administered greater than 2 g/hr for the following indications: Adult and Pediatric Asthma Exacerbations, Torsade de Pointes, Pediatric BMT and Hematology/Oncology, Eclampsia or Preeclampsia New Bag/Syringe/Bottle 10/26/2024 9:40 PM EDT 2 g 25 mL/hr methocarbamol 500 mg tab(s) (ROBAXIN) 500 mg, ORAL, 3 TIMES DAILY NEEDED, Starting on Tue10/26/24 at 1352, Until Tue10/27/24 at 1509, Muscle Spasm - First Line - Enteral, Muscle Spasm - Second Line - Enteral, Headache, If ordered PRN for pain, patient/guardian may elect to receive this medication for higher pain levels INSTEAD of the opioid, if preferred: Yes Given 10/26/2024 2:15 PM EDT 500 mg midazolam (PF) 0.5 mg injection (VERSED) 0.5 mg, INTRAVENOUS, ONCE, 1 dose, On Tue10/26/24 at 1900 Given 10/26/2024 6:55 PM EDT 0.5 mg NaCl 0.9% 500 mL iv bolus 500 mL, INTRAVENOUS, at 999 mL/hr, Administer over 0.5 Hours, ONCE, 1 dose, On Tue10/26/24 at 2100 New Bag/Syringe/Bottle 10/26/2024 8:58 PM EDT 500 mL 999 mL/hr NaCl 0.9% 500 mL iv bolus 500 mL, INTRAVENOUS, at 999 mL/hr, Administer over 0.5 Hours, ONCE, 1 dose, On 10/27/24 at 0000 New Bag/Syringe/Bottle 10/27/2024 12:06 AM EDT 500 mL 999 mL/hr NaCl 0.9% iv flush bag 20 mL, INTRAVENOUS, NEEDED, Starting on Tue10/26/24 at 1352, Until Tue10/27/24 at 1509, See admin instructions, If no compatible primary is already running, infuse NaCl 0.9% as primary to flush tubing after non-chemotherapy, non-immunotherapy intermittent infusions. Administer at the same rate as intermittent infusion. Select the Flush Bag file on smart pump. NaCl 0.9% iv infusion 100 mL/hr, INTRAVENOUS, CONTINUOUS, Starting on Tue10/26/24 at 1030, Until Tue10/26/24 at 1241, Recovery or Phase I (only) New Bag/Syringe/Bottle 10/26/2024 12:22 PM EDT 100 mL/hr 100 mL/hr Rate Verify 10/26/2024 10:11 AM EDT 100 mL/hr 100 mL/hr NaCl 0.9% iv infusion 100 mL/hr, INTRAVENOUS, CONTINUOUS, Starting on Tue10/26/24 at 1400, Until Tue10/26/24 at 1959 New Bag/Syringe/Bottle 10/26/2024 2:00 PM EDT 100 mL/hr 100 mL/hr NaCl 0.9% iv infusion 75 mL/hr, INTRAVENOUS, CONTINUOUS, Starting on Tue10/27/24 at 0230, Until 10/27/24 at 0749 New Bag/Syringe/Bottle 10/27/2024 2:30 AM EDT 75 mL/hr 75 mL/hr ondansetron (PF) 2-4 mg injection (ZOFRAN) 2-4 mg, INTRAVENOUS, EVERY 6 HOURS NEEDED, 2 doses, Starting on Tue10/26/24 at 0959, Until Tue10/26/24 at 1241, Nausea/Vomiting - Second Line - Parenteral, Give IV push over 2 minutes, Recovery or Phase I (only) Given 10/26/2024 10:39 AM EDT 4 mg ondansetron orally disintegrating 4 mg tab(s) (ZOFRAN ODT) 4 mg, ORAL, EVERY 8 HOURS NEEDED, Starting on Tue10/26/24 at 1742, Until Tue10/27/24 at 1509, Nausea/Vomiting - First Line - Enteral, Place tablet on tongue and allow to dissolve; do not chew. Open packaging using dry hands; do not push tablet through packaging. Given 10/26/2024 6:56 PM EDT 4 mg prochlorperazine 10 mg injection (COMPAZINE) 10 mg, INTRAVENOUS, NOW, 1 dose, On Tue10/26/24 at 2100, Protect From Light Given 10/26/2024 8:58 PM EDT 10 mg venlafaxine ER 150 mg cap(s) (EFFEXOR XR) 150 mg, ORAL, DAILY, First dose (after last reorder) on Tue10/26/24 at 1600, Until Discontinued, Swallow whole; DO NOT crush, chew, or open. Given 10/27/2024 9:43 AM EDT 150 mg Given 10/26/2024 8:43 PM EDT 150 mg documented in this encounter Active and Recently Administered Medications Times are shown in EDT. Scheduled Medication Order 10/25/2024 10/26/2024 10/27/2024 aspirin 325 mg tab(s) 325 mg, ORAL, DAILY, First dose (after last reorder) on Tue10/26/24 at 2000, Until Discontinued 2032 (Given - Provider: Nellie Nolan RN) 0756 (Given - Provider: Doris Luis RN) clopidogrel 75 mg tab(s) (PLAVIX) 75 mg, ORAL, DAILY, First dose (after last reorder) on Tue10/26/24 at 2000, Until Discontinued 2032 (Given - Provider: Nellie Nolan RN) 0757 (Given - Provider: Doris uLis, RN) dexAMETHasone 4 mg tab(s) (DECADRON) 4 mg, ORAL/FEEDING TUBE, EVERY 6 HOURS, First dose on Tue10/26/24 at 1800, Until Discontinued 1800 (Given - Provider: Estela Felder RN) 0006 (Given - Provider: Nellie Nolan RN)0528 (Given - Provider: Nellie Nolan RN)1140 (Given - Provider: Doris Luis RN) dexAMETHasone sodium phosphate 4 mg injection (DECADRON) (CANCELED) 4 mg, INTRAVENOUS, EVERY 6 HOURS, First dose on Tue10/26/24 at 1030, Until Discontinued, Administer over 5 minutes., Recovery or Phase I (only) 1039 (Given - Provider: Barbi Curry RN) diphenhydrAMINE 25 mg injection (BENADRYL) (COMPLETED) 25 mg, INTRAVENOUS, ONCE, 1 dose, On Tue10/26/24 at 2100 2057 (Given - Provider: Nellie Nolan RN) magnesium sulfate iv piggyback in sterile water 2 g 50 mL (CANCELED) 2 g, INTRAVENOUS, at 25 mL/hr, Administer over 2 Hours, DAILY, 2 doses, First dose on Tue10/26/24 at 1030, Last dose on Tue10/27/24 at 0900, Magnesium sulfate iv bolus will be infused at a rate of 1 gram/hr The following nursing units may administer 2 g dose over 1 hour if necessary: ICUs/PACU/ED, Adult Hematology/Oncology, Labor and Delivery, Cardiac Stepdown, Headache Clinic If necessary, a magnesium sulfate bolus may be administered greater than 2 g/hr for the following indications: Adult and Pediatric Asthma Exacerbations, Torsade de Pointes, Pediatric BMT and Hematology/Oncology, Eclampsia or Preeclampsia, Recovery or Phase I (only) 1040 (New Bag/Syringe/Bottle - Provider: Barbi Curry RN) magnesium sulfate iv piggyback in sterile water 2 g 50 mL (COMPLETED) 2 g, INTRAVENOUS, at 25 mL/hr, Administer over 2 Hours, DAILY, 1 dose, First dose (after last reorder) on Tue10/27/24 at 0900, Magnesium sulfate iv bolus will be infused at a rate of 1 gram/hr The following nursing units may administer 2 g dose over 1 hour if necessary: ICUs/PACU/ED, Adult Hematology/Oncology, Labor and Delivery, Cardiac Stepdown, Headache Clinic If necessary, a magnesium sulfate bolus may be administered greater than 2 g/hr for the following indications: Adult and Pediatric Asthma Exacerbations, Torsade de Pointes, Pediatric BMT and Hematology/Oncology, Eclampsia or Preeclampsia 0757 (New Bag/Syringe/Bottle - Provider: Doris Luis RN)0957 (Infusion Complete - Provider: Doris Luis RN) magnesium sulfate iv piggyback in sterile water 2 g 50 mL (COMPLETED) 2 g, INTRAVENOUS, at 25-50 mL/hr, Administer over 1-2 Hours, ONCE, 1 dose, On Tue10/26/24 at 2100, Magnesium sulfate iv bolus will be infused at a rate of 1 gram/hr The following nursing units may administer 2 g dose over 1 hour if necessary: ICUs/PACU/ED, Adult Hematology/Oncology, Labor and Delivery, Cardiac Stepdown, Headache Clinic If necessary, a magnesium sulfate bolus may be administered greater than 2 g/hr for the following indications: Adult and Pediatric Asthma Exacerbations, Torsade de Pointes, Pediatric BMT and Hematology/Oncology, Eclampsia or Preeclampsia 2140 (New Bag/Syringe/Bottle - Provider: Nellie Nolan RN)2340 (Infusion Complete - Provider: Nellie Nolan RN) midazolam (PF) 0.5 mg injection (VERSED) (COMPLETED) 0.5 mg, INTRAVENOUS, ONCE, 1 dose, On Tue10/26/24 at 1900 1855 (Given - Provider: Estela Felder RN) NaCl 0.9% 500 mL iv bolus (COMPLETED) 500 mL, INTRAVENOUS, at 999 mL/hr, Administer over 0.5 Hours, ONCE, 1 dose, On Tue10/26/24 at 2100 2058 (New Bag/Syringe/Bottle - Provider: Nellie Nolan RN)2128 (Infusion Complete - Provider: Nellie Nolan RN) NaCl 0.9% 500 mL iv bolus (COMPLETED) 500 mL, INTRAVENOUS, at 999 mL/hr, Administer over 0.5 Hours, ONCE, 1 dose, On Tue10/27/24 at 0000 0006 (New Bag/Syringe/Bottle - Provider: Nellie Nolan RN)0036 (Infusion Complete - Provider: Nellie Nolan RN) prochlorperazine 10 mg injection (COMPAZINE) (COMPLETED) 10 mg, INTRAVENOUS, NOW, 1 dose, On Tue10/26/24 at 2100, Protect From Light 2057 (Given - Provider: Nellie Nolan RN) venlafaxine ER 150 mg cap(s) (EFFEXOR XR) 150 mg, ORAL, DAILY, First dose (after last reorder) on Tue10/26/24 at 1600, Until Discontinued, Swallow whole; DO NOT crush, chew, or open. 2042 (Given - Provider: Nellie Nolan RN - Comment: Previous RN rescheduled due time) 942 (Given - Provider: Doris Luis RN) Continuous Medication Order 10/25/2024 10/26/2024 10/27/2024 NaCl 0.9% iv infusion (CANCELED) 100 mL/hr, INTRAVENOUS, CONTINUOUS, Starting on Tue10/26/24 at 1030, Until Tue10/26/24 at 1241, Recovery or Phase I (only) 1011 (Rate Verify - Provider: Barbi Curry RN)1222 (New Bag/Syringe/Bottle - Provider: Barbi Curry RN)1320 (Infusion Complete - Provider: Estela Felder RN - Comment: [Order ends at this time. Document the following action when infusion is complete: Infusion Complete]) NaCl 0.9% iv infusion () 100 mL/hr, INTRAVENOUS, CONTINUOUS, Starting on Tue10/26/24 at 1400, Until Tue10/26/24 at 1959 1400 (New Bag/Syringe/Bottle - Provider: Estela Felder RN)1959 (Infusion Complete - Provider: Estela Felder RN - Comment: [Order ends at this time. Document the following action when infusion is complete: Infusion Complete]) NaCl 0.9% iv infusion (CANCELED) 75 mL/hr, INTRAVENOUS, CONTINUOUS, Starting on 10/27/24 at 0230, Until 10/27/24 at 0749 0230 (New Bag/Syringe/Bottle - Provider: Nellie Nolan RN)0749 (Infusion Complete - Provider: Doris Luis RN - Comment: [Order ends at this time. Document the following action when infusion is complete: Infusion Complete]) PRN Medication Order 10/25/2024 10/26/2024 10/27/2024 acetaminophen 1,000 mg tab(s) (TYLENOL) 1,000 mg, ORAL, EVERY 6 HOURS NEEDED, Starting on Tue10/26/24 at 1352, Until 10/27/24 at 1509, fever (specify temp.), Mild Pain (1-3) - Enteral, Headache, Temp >38.5C Maximum acetaminophen dose in all forms combined = 4,000mg/24 hours, If ordered PRN for pain, patient/guardian may elect to receive this medication for higher pain levels INSTEAD of the opioid, if preferred: Yes 1758 (Given - Provider: Estela Felder RN) 0756 (Given - Provider: Doris Luis RN) clonazePAM 1 mg tab(s) (KlonoPIN) (CANCELED) 1 mg, ORAL, 2 TIMES DAILY NEEDED, Starting on Tue10/26/24 at 1352, Until Tue10/26/24 at 1526, Anxiety - First Line - Enteral, Hazardous Potential Reproductive Risk Drug: Use appropriate PPE. 1415 (Given - Provider: Estela Felder RN) clonazePAM 1 mg tab(s) (KlonoPIN) 1 mg, ORAL, 3 TIMES DAILY NEEDED, Starting on Tue10/26/24 at 1525, Until 10/27/24 at 1509, Anxiety - First Line - Enteral, Hazardous Potential Reproductive Risk Drug: Use appropriate PPE. 1543 (Given - Provider: Jovani Monroy RN) diphenhydrAMINE 25-50 mg injection (BENADRYL) (CANCELED) 25-50 mg, INTRAVENOUS, EVERY 6 HOURS NEEDED, 2 doses, Starting on Tue10/26/24 at 0959, Until Tue10/26/24 at 1241, Nausea/Vomiting - First Line - Parenteral, Recovery or Phase I (only) 1023 (Given - Provider: Barbi Curry RN) fentaNYL 50 mcg/mL 25-50 mcg injection (SUBLIMAZE) (CANCELED) 25-50 mcg, INTRAVENOUS, EVERY 10 MINUTES NEEDED, Starting on Tue10/26/24 at 0959, Until Tue10/26/24 at 1241, Mild Pain (1-3) - Parenteral, Moderate Pain (4-6) - Parenteral, Severe Pain (>/=7) - Parenteral, May repeat every 10 minutes (MAX: 250 mcg) If pain score remains greater than 4 after maximal dose achieved, contact PACU vice president digital strategist/LIP/staff for reassessment. Give 25 mcg for mild pain (1-3) Give 50 mcg for moderate pain (4-6) and severe pain (>/=7), Recovery or Phase I (only) 1033 (Given - Provider: Barbi Curry, EYSI) HYDROmorphone 0.5 mg injection (DILAUDID) (CANCELED) 0.5 mg, INTRAVENOUS, EVERY 10 MINUTES NEEDED, Starting on Tue10/26/24 at 1112, Until Tue10/26/24 at 1352, breakthrough pain, May repeat every 10 minutes (MAX: 2 mg) If pain score remains greater than 4 after maximal dose achieved, contact PACU vice president digital strategist/LIP/staff for reassessment. Caution: IV hydromorphone is approximately 8 times MORE POTENT than IV morphine. For example, hydromorphone 1mg IV = morphine 8mg IV 1114 (Given - Provider: Barbi Curry RN)1222 (Given - Provider: Barbi Curry RN) methocarbamol 500 mg tab(s) (ROBAXIN) 500 mg, ORAL, 3 TIMES DAILY NEEDED, Starting on Tue10/26/24 at 1352, Until 10/27/24 at 1509, Muscle Spasm - First Line - Enteral, Muscle Spasm - Second Line - Enteral, Headache, If ordered PRN for pain, patient/guardian may elect to receive this medication for higher pain levels INSTEAD of the opioid, if preferred: Yes 1415 (Given - Provider: Estela eFlder RN) NaCl 0.9% iv flush bag 20 mL, INTRAVENOUS, NEEDED, Starting on Tue10/26/24 at 1352, Until 10/27/24 at 1509, See admin instructions, If no compatible primary is already running, infuse NaCl 0.9% as primary to flush tubing after non-chemotherapy, non-immunotherapy intermittent infusions. Administer at the same rate as intermittent infusion. Select the Flush Bag file on smart pump. ondansetron (PF) 2-4 mg injection (ZOFRAN) (CANCELED) 2-4 mg, INTRAVENOUS, EVERY 6 HOURS NEEDED, 2 doses, Starting on Tue10/26/24 at 0959, Until 10/26/24 at 1241, Nausea/Vomiting - Second Line - Parenteral, Give IV push over 2 minutes, Recovery or Phase I (only) 1039 (Given - Provider: Barbi Curry, YESI) ondansetron orally disintegrating 4 mg tab(s) (ZOFRAN ODT) 4 mg, ORAL, EVERY 8 HOURS NEEDED, Starting on 10/26/24 at 1742, Until Tue10/27/24 at 1509, Nausea/Vomiting - First Line - Enteral, Place tablet on tongue and allow to dissolve; do not chew. Open packaging using dry hands; do not push tablet through packaging. 1856 (Given - Provider: Estela Felder RN) documented in this encounter Care Teams Compounder Helper Relationship Specialty Start Date End Date Rufino Ayala PA-C [address] [place] [address] PCP - General Physician Rnfa 06/21/24 Rufino Ayala PA-C [address] [place] [address] Referring Physician Rnfa 04/16/24 Terry Kovacs MD [address] [place], [place] [id number] Referring Ent - Otolaryngology 06/07/24 documented as of this encounter
--- OUTSIDE RECORDS SUMMARY | 2024-10-26 07:30 | XMS_ITS | Encounter Summary ---
Author Organization [facility] Address [address] [place] [address] Care Team Providers Care Inspector Repairer Name Role Phone Rufino Ayala PA-C Unavailable [phone] Terry Kovacs MD Unavailable Rufino Ayala PA-C Primary Care Provider [phone] Source Comments In the event this information is protected by the Federal Confidentiality of Alcohol and Drug AbusePatient Records regulations: The Federal rules restrict any use of the information to criminally investigate or prosecute any alcohol or drug abuse patient.[facility] Reason for Visit * Auth/Cert (Routine) Specialty Diagnoses / Procedures Referred By Ambika hayes Referred To Contact ADMITTING Diagnoses Pulsatile tinnitus, left ear Pulsatile tinnitus, left ear [H93.A2] Procedures TCAT PERMANENT OCCLUSION/EMBOLIZATION PRQ ARCHITECT INTERNSHIP TRANSCATH EMBOLIZATION ARCHITECT INTERNSHIP INTRACRANIAL Admitting [address] [place] [address] Referral ID Status Reason Start Date Expiration Date Visits Re quested Visits Authorized [id number] 1 1 Encounter Details Date Type Department Care Team (Late st Contact Info) Description 10/26/2024 7:30 AM EDT - 10/26/2024 10:40 AM EDT Surgery Admitting [address] [place] [address] Suleman Bustos MD [address] [place] [address] TRANSCATH EMBOLIZATION ARCHITECT INTERNSHIP INTRACRANIAL Surgery Details Date/Time Status Location OR Service Patient Class Case Class Case Type Trauma Case? 10/26/2024 7:30 AM Posted [facility] Interventional Radiology To Come In Elective Panel 1 Procedure LRB Anes Op Region Wound Class Comments TRANSCATH EMBOLIZATION ARCHITECT INTERNSHIP INTRACRANIAL Left General Brain N/A Surgeon Surgeon Role Service Panel Suleman Bustos MD Primary Interventional Radiolo gy 1 Celeste Goldman MD Fellow Neurology 1 documented in this encounter Social History Tobacco Use Types Packs/Day Years [...] is lower risk 4 10/02/2024 Data from: https://www.neighborhoodatlas.medicine.[facility].edu/. Last address used for calculation [address] [address] 10/02/2024 Comments No Sex and Gender Information Value Date Recorded Sex Assigned at Not on file Legal Sex Female 9:59 AM EDT Gender Identity Not on file Sexual Orientation Not on file documented as of this encounter Last Filed Vital Signs Vital Sign Reading Time Taken Comments Blood Pressure 111/56 10/26/2024 10:30 AM EDT Pulse 94 10/26/2024 10:30 AM EDT Temperature 36.4 C (97.5 F) 10/26/2024 10:11 AM EDT Respiratory Rate 12 10/26/2024 10:30 AM EDT Oxygen Saturation 100% 10/26/2024 10:30 AM EDT Inhaled Oxygen Concentration - - Weight 70.3 kg (155 lb) 10/26/2024 7:30 AM EDT Height 170.2 cm (5' 7 ) 10/26/2024 7:30 AM EDT Body Mass Index 22.68 10/26/2024 5:40 PM EDT documented in this encounter Discharge Summaries * Sandra Landry, MIQUEL.THERMAL ENGINEER - 10/27/2024 11:28 AM EDT Images from the original note were not included. DISCHARGE SUMMARY CV NEUROSURGERY PATIENT NAME: Tracy Mckoy ADMISSION DATE: 10/26/2024 DISCHARGE DATE: 10/27/2024 Attending Physician: Suleman Bustos MD PCP: CORRY Arango PA-C Code Status: Not on file Highest [...] The patient was electively admitted to the [facility] with pulsatile tinnitus. After being optimized for [...] Normal Muscle strength: UE BICEPS TRICEPS DELTS Hand I Blocker R 5/5 5/5 5/5 5/5 L 5/5 [...] Your Medications These medications were sent to [facility] [address] [place] [address] Hours: Tuesday-Tuesday 7am-8pm, Tuesday, Tuesday and Holidays [...] 11/20/2024 8:40 AM Suleman Bustos MD [facility] 12/03/2024 3:00 PM Deon Montemayor, PSYD NREUS2 Main - S Bld The patient's risk for 30-day readmission is determined using the following contributing factors: Predictive Model Details 6% (Low) Factor Value Calculated 10/26/2024 02:24 -28% Admission Provider Speciality NEUROLOGY [facility] READMISSION RISK Model -18% Admissions (365d) 0 -15% Hospital Unit N/A -13% Diagnosis Count 3 -13% [facility] -12% ED visits (365d) 0 -12% Admissions [...] Yes Other: none I have performed the [id number] and relevant services for a total of >30 minutes. SIGNATURE: Sandra Landry APRN.THERMAL ENGINEER DATE: October 27, 2024 TIME: 11:42 AM [...] Primary Care Physician (Family Doctor): CORRY Arango, DEEJAY Other Medical Team Members: None YOUR PLAN [...] Provider Location Dept Phone 10/26/2024 2:30 PM PORT 3 IP Main - J Bld [phone] 11/20/2024 8:40 AM SULEMAN BUSTOS [facility] [phone] 12/03/2024 3:00 PM [facility] Main - S Bld [phone] If you have questions or clinical concerns: Normal business hours, please call your physician's office at Dr. Suleman Bustos, Office For urgent concerns: Nights and weekends, call [phone] or and ask for the neurosurgery resident sap functional analyst. The Reason I was in the Hospital/Main Diagnosis: Pulsatile tinnitus Summary of What Happened When in the Hospital: You were electively admitted to the [facility] for an elective procedureto treat pulsatile tinnitus. [...] here, along with necessary prescriptions. Please call [phone] with any questions, concerns, or problems that [...] Treatment Go to your local emergency department, [facility] Emergency Department, or call 911 if you [...] When to Call the Doctor Call your [facility] provider, or your local doctor if you [...] Bld 11/20/2024 8:40 AM Suleman Bustos MD [facility] 12/03/2024 3:00 PM Yvonne Deon, QUINTEN NREUS2 Main - S Bld Please remember to discard old medication lists and to update your records with all your healthcareproviders and retail pharmacies. An appointment has been requested for you to see us in follow up. Please call [phone] if you have any questions about your appointment. Additional Health Information I Need to Know After I Leave the Hospital: No additional instructions. Imaging follow up: 6 month MRV Neurosurgery [...] For urgent concerns: Nights and weekends, call [phone] or and ask for the neurosurgery resident sap functional analyst. documented in this encounter Medications at Time of Discharge acetaminophen (TYLENOL) 500 mg tablet Take 2 tablets by mouth every 6 hours as needed for pain. 5 methocarbamol (ROBAXIN) 500 mg tablet Take [...] CT contrast administration guidelines link. 1 each 5 10/29/19 ondansetron orally disintegrating (ZOFRAN ODT) 4 [...] tab(s) 325 mg ORAL DAILY Graciela Neal APRN.THERMAL ENGINEER 325 mg at 10/27/24 0757 clopidogrel 75 mg tab(s) (PLAVIX) 75 mg ORAL DAILY Graciela Neal APRN.THERMAL ENGINEER 75 mg at 10/27/24 0757 acetaminophen 1,000 mg tab(s) (TYLENOL) 1,000 mg ORAL q 6 H PRN Graciela Neal APRN.THERMAL ENGINEER 1,000 mg at10/27/24 0756 methocarbamol 500 mg tab(s) (ROBAXIN) 500 mg ORAL TID PRN Graciela Neal APRN.THERMAL ENGINEER 500 mg at 10/26/24 1415 venlafaxine ER 150 mg cap(s) (EFFEXOR XR) 150 mg ORAL DAILY Graciela Neal APRN.THERMAL ENGINEER 150 mg at 10/27/24 0943 NaCl 0.9% iv flush bag 20 mL INTRAVENOUS PRN Graciela Neal APRN.THERMAL ENGINEER clonazePAM 1 mg tab(s) (KlonoPIN) 1 mg ORAL TID PRN Graciela Neal, CLERICAL DENTIST ASSISTANT.THERMAL ENGINEER 1 mg at 10/26/24 1543 ondansetron orally disintegrating 4 mg tab(s) (ZOFRAN ODT) 4 mg ORAL q 8 H PRN Graciela Neal APRN.THERMAL ENGINEER 4 mg at 10/26/24 1856 dexAMETHasone 4 mg tab(s) (DECADRON) 4 mg ORAL/FEEDING TUBE q 6 H Graciela Neal APRN.THERMAL ENGINEER 4 mg at 10/27/24 0528 ALLERGIES Allergen [...] overwhelmedand desperate. I will coordinate with Dr. Montemayor from psychology to get an established provider. [...] (photon counting, ultra high resolution at [facility]) in 1 month - follow up in my clinic after CTV - will coordinate with Dr. Kovacs on timing of ENT surgery - psychiatric care with Dr. Montemayor SIGNATURE: Suleman Bustos MD PATIENT NAME: Tracy Mckoy DATE: October 27, 2024 TIME: 10:42 AM PAGER/CONTACT #: [phone] * Celeste Goldman MD - 10/26/2024 10:20 [...] order set Celeste Goldman MD ESNR Fellow [phone] documented in this encounter Nursing Notes * Doris Luis RN - 10/27/2024 1:09 PM EDT Transfer Note: PATIENT NAME: Tracy Mckoy Patient Location: [place] [address]/[facility] Room: [place] [address] Patient transferred out to room/unit in stable condition. Actions taken: No futher actions taken atthis time. Will continue to monitor and check with patient. Patient belongings with patient documented in this encounter OR Notes * Brief Op Note - Celeste Goldman MD - 10/26/2024 9:47 AM EDT BRIEF OP/PROCEDURE NOTE NEURO INTERVENTIONAL PROCEDURE DATE: October 26, 2024 LOG ID: [id number] Surgery/Procedure Date: 10/26/2024 Incision/Procedure Start Time: 8:32 AM Incision Close/Procedure End Time: 9:45 AM Anesthesia: General PRIMARY PROCEDURALIST: Suleman Bustos MD INTERNATIONAL ACCOUNTANT(S): Celeste Goldman MD CASE STATUS: Outpatient/Elective PROCEDURE: [...] The marked outpatient medications were Filled at: [facility] and delivered to the patient's bedside [...] Contact Info) Description 11/27/2024 8:40 AM EDT [facility] [address] [place] [address] Suleman Bustos MD [address] [place], [place] [id number] Dx Hospital DC Post op Est patient 11/27/2024 3:00 PM EDT Appointment Radiology [address] [id number] Dx: Pulsatile tinnitus, left ear [H93.A2] 12/03/2024 3:00 PM EDT [facility] [address] [place] [address] Deon Montemayor, DENNYYD [address], [place] [address] new consult for Tinnitus CBT per Dr. Montemayor documented as of this encounter Procedures Procedure Name Priority Date/Time Associated Diagnosis Comments COMPLETE BLOOD COUNT Routine 10/27/2024 5:59 AM EDT BASIC METABOLIC PANEL Routine 10/27/2024 5:59 AM EDT [facility] Routine 10/26/2024 2:46 PM EDT TCAT PERMANENT OCCLUSION/EMBOLIZAT ION PRQ ARCHITECT INTERNSHIP 10/26/2024 7:48 AM EDT Pulsatile tinnitus, left ear documented in this encounter Results * (ABNORMAL) BASIC METABOLIC PANEL (10/27/2024 5:59 AM EDT) [facility] Signature Glucose 124(H) 74 - 99 mg/dL 10/27/2024 8:50 AM T [facility] Comment: The [place] Diabetes Association (ADA) provides guidance for cutoff [...] Standards of Medical Care in Diabetes 2016, [place] [employer]. Diabetes Care. 2016.39(Suppl 1). BUN 14 7 - 21 mg/dL 10/27/2024 8:50 AM [facility] Creatinine 0.68 0.58 - 0.96 mg/dL 10/27/2024 8:50 AM [facility] Sodium 137 136 - 144 mmol/L 10/27/2024 8:50 AM T [facility] Potassium 4.2 3.7 - 5.1 mmol/L 10/27/2024 8:50 AM [facility] Chloride 106 98 - 107 mmol/L 10/27/2024 8:50 AM T [facility] CO2 20(L) 22 - 30 mmol/L 10/27/2024 8:50 AM [facility] Anion Gap 11 8 - 15 mmol/L 10/27/2024 8:50 AM [facility] Calcium, Total 8.5 8.5 - 10.2 mg/dL 10/27/2024 8:50 AM [facility] Estimated Glomerular Filtration Rate 121 >=60 mL/min/1.7 3m 10/27/2024 8:50 AM [facility] Comment:Estimated Glomerular Filtration Rate (eGFR) is [...] 10/27/2024 6:32 AM EDT us Graciela Neal CLERICAL DENTIST ASSISTANT.THERMAL ENGINEER LABORATORY Final Resu lt [facility] [address] [place] [address], * (ABNORMAL) COMPLETE BLOOD COUNT (10/27/2024 5:59 AM EDT) WBC 12.86(H) 3.70 - 11.00 k/uL 10/27/2024 6:38 AM EDT [facility] RBC 3.91 3.90 - 5.20 m/uL 10/27/2024 6:38 AM EDT [facility] Hemoglobin 12.3 11.5 - 15.5 g/dL 10/27/2024 6:38 AM EDT [facility] Hematocrit 34.7(L) 36.0 - 46.0 % 10/27/2024 6:38 AM EDT [facility] MCV 88.7 80.0 - 100.0 fL 10/27/2024 6:38 AM EDT [facility] MCH 31.5 26.0 - 34.0 pg 10/27/2024 6:38 AM EDT [facility] MCHC 35.4 30.5 - 36.0 g/dL 10/27/2024 6:38 AM EDT [facility] RDW-CV 12.0 11.5 - 15.0 % 10/27/2024 6:38 AM EDT [facility] Platelet Count 180 150 - 400 k/uL 10/27/2024 6:38 AM EDT [facility] MPV 10.6 9.0 - 12.7 fL 10/27/2024 6:38 AM EDT [facility] Absolute nRBC <0.01 <0.01 k/uL 10/27/2024 6:38 AM EDT [facility] Blood BLOOD SPECIMEN / Unknown Venipuncture / Unknown 10/27/2024 5:59 AM EDT 10/27/2024 6:32 AM EDT us Graciela Neal CLERICAL DENTIST ASSISTANT.THERMAL ENGINEER LABORATORY Final Resu lt [facility] [address] [facility] Desk [place] [id number], [place] * [facility] (10/26/2024 2:46 PM EDT) 10/26/2024 2:[address] [facility] - 10/26/2024 4:28 PM EDT Non-Invasive Vascular Laboratory [facility] Portable Lower Extremity Arterial Duplex [...] DO Final See Link below for Image Suleman Bustos MD VASCULAR LAB Final Result Performing Organization Address City/State/[facility] Co de Phone Number [facility] [address] [place], [place] [phone] documented in this encounter Visit Diagnoses Diagnosis Pulsatile tinnitus- Primary Unspecified tinnitus Pulsatile tinnitus, left ear * Assessment & Plan Note - Graciela Neal APRN.CNP - 10/26/2024 1:57 PM EDT Associated Problem(s): [...] ORAL, EVERY 6 HOURS NEEDED, Starting on 10/26/24 at 1352, Until 10/27/24 at 1509, fever [...] 12:06 AM EDT 4 mg O ral methocarbamol 500 mg tab(s) (ROBAXIN) 500 mg, [...] Given 10/26/2024 2:15 PM EDT 500 mg NaCl 0.9% iv flush bag 20 mL, INTRAVENOUS, NEEDED, Starting on Tue10/26/24 at 1352, Until 10/27/24 at 1509, See admin instructions, If no compatible primary is already running, infuse NaCl 0.9% as primary to flush tubing after non-chemotherapy, non-immunotherapy intermittent infusions. Administer at the same rate as intermittent infusion. Select the Flush Bag file on smart pump. ondansetron orally disintegrating 4 mg tab(s) (ZOFRAN ODT) 4 mg, ORAL, EVERY 8 HOURS NEEDED, Starting on Tue10/26/24 at 1742, Until Tue10/27/24 at 1509, Nausea/Vomiting - First Line - Enteral, Place tablet on tongue and allow to dissolve; do not chew. Open packaging using dry hands; do not push tablet through packaging. Given 10/26/2024 6:56 PM EDT 4 mg venlafaxine ER 150 mg cap(s) (EFFEXOR [...] Nolan RN) 0757 (Given - Provider: Doris Luis, RN) clopidogrel 75 mg tab(s) (PLAVIX) 75 mg, ORAL, DAILY, First dose (after last reorder) on Tue10/26/24 at 2000, Until Discontinued 2032 (Given - Provider: Nellie Nolan RN) 0757 (Given - Provider: Doris Luis, RN) dexAMETHasone 4 mg tab(s) (DECADRON) 4 [...] 5 minutes., Recovery or Phase I (only) 1040 (Given - Provider: Barbi Curry RN) diphenhydrAMINE [...] or Preeclampsia, Recovery or Phase I (only) 1039 (New Bag/Syringe/Bottle - Provider: Barbi Curry RN) [...] Pediatric BMT and Hematology/Oncology, Eclampsia or Preeclampsia 2139 (New Bag/Syringe/Bottle - Provider: Nellie Nolan RN)2339 (Infusion Complete - Provider: Nellie Nolan RN) midazolam (PF) 0.5 mg injection (VERSED) (COMPLETED) 0.5 mg, INTRAVENOUS, ONCE, 1 dose, On Tue10/26/24 at 1900 1855 (Given - Provider: Estela Felder RN) NaCl 0.9% 500 mL iv bolus (COMPLETED) 500 mL, INTRAVENOUS, at 999 mL/hr, Administer over 0.5 Hours, ONCE, 1 dose, On Tue10/26/24 at 2100 2057 (New Bag/Syringe/Bottle - Provider: Nellie Nolan RN)2127 (Infusion Complete - Provider: Nellie Nolan RN) [...] - Comment: Previous RN rescheduled due time) 0943 (Given - Provider: Doris Luis RN) Continuous [...] 4 after maximal dose achieved, contact PACU president and chief operating officer/LIP/staff for reassessment. Give 25 mcg for mild pain (1-3) Give 50 mcg for moderate pain (4-6) and severe pain (>/=7), Recovery or Phase I (only) 1033 (Given - Provider: Barbi Curry RN) HYDROmorphone 0.5 mg injection (DILAUDID) (CANCELED) 0.5 mg, INTRAVENOUS, EVERY 10 MINUTES NEEDED, Starting on Tue10/26/24 at 1112, Until Tue10/26/24 at 1352, breakthrough pain, May repeat every 10 minutes (MAX: 2 mg) If pain score remains greater than 4 after maximal dose achieved, contact PACU president and chief operating officer/LIP/staff for reassessment. Caution: IV hydromorphone is approximately [...] preferred: Yes 1415 (Given - Provider: Estela Felder RN) NaCl 0.9% iv flush bag 20 [...] 1039 (Given - Provider: Barbi Curry RN) ondansetron orally disintegrating 4 mg tab(s) (ZOFRAN ODT) 4 mg, ORAL, EVERY 8 HOURS NEEDED, Starting on Tue10/26/24 at 1742, Until 10/27/24 at 1509, Nausea/Vomiting - First Line - Enteral, Place tablet on tongue and allow to dissolve; do not chew. Open packaging using dry hands; do not push tablet through packaging. 1856 (Given - Provider: Estela Felder RN) documented in this encounter Care Teams Inspector Repairer Relationship Specialty Start Date End Date Rufino Ayala PA-C [address] [place] [address] PCP - General Physician Healthcare Economics Manager 06/21/24 Rufino Ayala PA-C [address] [place] [address] Referring Physician Healthcare Economics Manager 04/16/24 Terry Kovacs MD [address] [place], [place] [phone] Referring Ent - Otolaryngology 06/07/24 documented as of this encounter
--- OUTSIDE RECORDS SUMMARY | 2024-10-26 07:52 | XMS_ITS | Encounter Summary ---
Author Organization [facility] Address [address] [place] [address] Care Team Providers Care Building Rental Manager Name Role Phone Rufino Ayala PA-C Unavailable [phone] Terry Kovacs MD Unavailable Rufino Ayala PA-C Primary Care Provider [phone] Source Comments In the event this information is protected by the Federal Confidentiality of Alcohol and Drug AbusePatient Records regulations: The Federal rules restrict any use of the information to criminally investigate or prosecute any alcohol or drug abuse patient.[facility] Reason for Visit * Auth/Cert (Routine) Specialty Diagnoses / Procedures Referred By Ambika t Referred To Contact ADMITTING Diagnoses Pulsatile tinnitus, left ear Pulsatile tinnitus, left ear [H93.A2] Procedures TCAT PERMANENT OCCLUSION/EMBOLIZATION PRQ SEASONAL RECRUITER TRANSCATH EMBOLIZATION SEASONAL RECRUITER INTRACRANIAL Admitting [address] [id number] Referral ID Status Reason Start Date Expiration Date Visits Re quested Visits Authorized [id number] 1 1 Encounter Details Date Type Department Care Team (Late st Contact Info) Description 10/26/2024 7:52 AM EDT Anesthesia Event Admitting [address] [place] [address] Lucian Santos MD [address] [id number] Birdie Benitez APRN.BEEF FARMER [address] [place] [address] Anesthesia Record Procedure Summary Procedure Name Responsible Anesthesiologist Anesthesia Start Time Anesthesia Stop Time TRANSCATH EMBOLIZATION SEASONAL RECRUITER INTRACRANIAL (Left: Brain) Lucian Santos MD 10/26/24 0752 10/26/24 1011 Events Date Time Event Comment 10/26/2024 0752 An Start I have re-evalu ated the patient immediately prior to induction. 0752 An Start Data 0753 Anesthesia Time Out 0800 0801 An Induction I have re-evalu ated the patient immediately prior to induction. 0805 An Intubation 0805 Anesthesia Ready 0832 Incision/Procedure Start 0920 Start Closing 0936 Emerge 0945 An Extubation Patient : Airw ay suctioned clear; following commands with adequate responsiveness; strength and spontaneous ventilation confirmed; stable hemodynamics 0945 Procedure End 1003 an stop data 1011 Handoff to RN I completed my handoff to the receiving nurse during which we: 1. Identified the patient 2. Identified the responsible provider 3. Reviewed the pertinent medical history 4. Discussed the surgical course 5. Reviewed intra-op anesthesia management and issues during anesthesia 6. Set expectations for post-procedure period 7. Allowed opportunity for questions and acknowledgement of understanding. 1011 An Stop Meds Name Total dexAMETHasone 4 mg/mL 10 mg ePHEDrine 10 mg fentaNYL (PF) 200 mcg lidocaine (PF) 1% 100 mg PHENYLephrine 100 mcg/mL 600 mcg PHENYLephrine 10 mg in NaCl 0.9% 250 mL (ALISON-SYNEPHRINE) 1,640 mcg propofol 200 mg ondansetron (PF) 4 mg rocuronium 110 mg midazolam (PF) 2 mg diphenhydrAMINE 25 mg heparin 1,000 units/mL 4,000 Units sugammadex 200 mg NaCl 0.9% 300 mL LR 0 mL * Agents Name ETO2 ETN2O Inspired N2O Set O2% Inspired Sevoflurane Sevoflurane * Blood No blood administrations on file. Lines, Drains, and Airways Type Details Placement Removal PIV 10/26/24; 729; [facility]; Short; Left; Forearm; 18 Gauge; 10/27/24; 1609 10/26/24 0730 by Shea Bazan, YESI 10/27/24 1609 by Anabelle Reg In Airway Endotracheal Tube; 0 10/26/24; 0805 (created via procedure documentation); 7 mm; Cuffed; No; 10/26/24; 0945 10/26/24 0805 by Lucian Santos MD 10/26/24 0945 by Birdie Benitez APRN.BEEF FARMER PIV 10/26/24; 0811 (crea luiza via procedure documentation); Right; Hand; 18 Gauge; 10/27/24; 1609 10/26/24 0811 by Lucian Santos MD 10/27/24 1609 by Anabelle Reg In Drake 10/26/24; 0820; [facility]; [place]; 10/26/24; 1444 10/26/24 0820 by Katie Joaquin RN 10/26/24 1444 by Estela Felder RN documented in this encounter Social History Tobacco [...] is lower risk 4 10/02/2024 Data from: https://www.neighborhoodatlas.medicine.[facility].edu/. Last address used for calculation [address] [address] 10/02/2024 Comments No Sex and Gender Information Value Date Recorded Sex Assigned at Not on file Legal Sex Female 9:59 AM EDT Gender Identity Not on file Sexual Orientation Not on file documented as of this encounter Last Filed Vital Signs Vital Sign Reading Time Taken Comments Blood Pressure 136/60 10/26/2024 9:50 AM EDT Pulse 98 10/26/2024 9:51 AM EDT Temperature - - Respiratory Rate - - Oxygen Saturation 100% 10/26/2024 9:51 AM EDT Inhaled Oxygen Concentration - - Weight - - Height - - Body Mass Index - - documented in this encounter Procedure Notes * Lucian Santos MD - 10/26/2024 12:22 PM EDT POST ANESTHESIA EVALUATION NOTE : 1995 Procedure Summary Date: 10/26/24 Room / Location: [address] Anesthesia Start: 751 Anesthesia Stop: 101 Procedure: TRANSCATH EMBOLIZATION SEASONAL RECRUITER INTRACRANIAL (Left: Brain) Diagnosis: Pulsatile tinnitus, left ear (Pulsatile tinnitus, left ear [H93.A2]) Surgeons: Heladio Bustos MD Responsible Provider: Lucian Santos MD Anesthesia Type: general ASA Status: 2 Anesthesia Type: general Airway Type: ETT Last Vitals Vitals Value Taken Time BP 104/55 10/26/24 1215 Temp 36.4 ??C (97.5 ??F) 10/26/24 1011 Pulse 75 10/26/24 1220 Resp 15 10/26/24 1220 SpO2 100 % 10/26/24 1220 Vitals shown include unfiled device data. Post Anesthesia Patient Status Patient Evaluation: PACU. PACU/ICU Patient Condition: stable. Neurological Status: aware and responsive. Pulmonary Status: breathing comfortably on room air Airway Control: returned to baseline unsupported. Cardiovascular Status: stable. Pain Management: clinically adequate Postoperative Hydration: acceptable. Intraoperative Events: no significant anesthesia events Post Operative Nausea/Vomiting Status: no significant post operative nausea or vomiting Recommendation: continue current plan of care. Anesthesia Observations No Documentation SIGNATURE: Danielle Epstein MD PATIENT NAME: Tracy Harrington DATE: October 26, 2024 TIME: 12:22 PM CSN: [id number] * Lucian Santos MD - 10/26/2024 8:10 AM EDTAssociated Order(s): PIV ANESTHESIOLOGY PROCEDURE NOTE PIV General Information Procedure Start Time/Medication Administration: 10/26/2024 8:11 AM Procedure End Time: 10/26/2024 8:11 AM Staffing Anesthesiologist: Lucian Santos MD BEEF FARMER: Birdie Benitez APRN.BEEF FARMER Performed by: BEEF FARMER Preparation Sterility Preparation: hand hygiene performed prior to procedure, surgical cap used, mask used, skin prep agent completely dried prior to procedure Site Prep: alcohol Procedure Details Indication: need for IV access Needle Size/Type: 18 gauge angiocath Orientation: Right Location: Hand Imaging Guidance Used: No SIGNATURE: Danielle Epstein MD PATIENT NAME: Tracy Harrington DATE: October 26, 2024 TIME: 8:10 AM CSN: [id number] * Lucian Santos MD - 10/26/2024 8:08 AM EDTAssociated Order(s): Airway ANESTHESIOLOGY PROCEDURE NOTE Airway General Information Procedure Start Time/Medication Administration: 10/26/2024 8:05 AM Procedure End Time: 10/26/2024 8:08 AM Patient location during procedure: OR Staffing Anesthesiologist: Lucian Santos MD BEEF FARMER: Birdie Benitez APRN.BEEF FARMER Performed by: YOMAIRA Indications and Patient Condition Indications for airway management: anesthesia Preoxygenated: yes anesthesia circuit Method: sleep Difficult Mask: No Final Airway Details Final airway type: endotracheal airway Final Endotracheal Airway: ETT Cuffed: yes Successful intubation technique: video laryngoscopy Devices used: Surface Tension Endotracheal tube insertion site: oral Blade: Vinay Blade size: #3 ETT size (mm): 7.0 Measured from: lips Measurement (cm): 22 Placement verified by: capnometry Cormack-Lehane Classification: grade I - full view of glottis Number of attempts at approach: 1 Airway not difficult SIGNATURE: Danielle Epstein MD PATIENT NAME: Tracy Harrington DATE: October 26, 2024 TIME: 8:08 AM CSN: [id number] * Lucian Santos MD - 10/26/2024 8:00 AM EDT ANESTHESIOLOGY DAY OF SURGERY NOTE : 1995 Procedure Information Anesthesia Start Date/Time: 10/26/24 0752 Procedure: TRANSCATH EMBOLIZATION SEASONAL RECRUITER INTRACRANIAL (Left: Brain) [facility]: [facility] Surgeons: Heladio Bustos MD Estimated body mass index is 24.28 kg/m?? as calculated from the following: Height as of this encounter: 170.2 cm (5' 7 ). Weight as of this encounter: 70.3 kg (155 lb). Most recent hematocrit and potassium results: Hematocrit 41.7 10/25/2024 Potassium 4.2 10/25/2024 Relevant Problems ANESTHESIA (+) PONV (postoperative nausea and vomiting) PULMONARY (+) Asthma (HCC) I - PHYSICAL EVALUATION AIRWAY Patient intubated: No. Tracheostomy tube not present Mallampati: II. TM distance: >3 FB. Neck ROM: full ROM without neurological symptoms. Mouth opening: adequate. Short neck: no. Thick neck: no Kay present: no DENTAL Dental findings: teeth intact. II - ANESTHESIA PLAN ASA Score: 2 Anesthetic Plan: general Airway type: ETT NPO Status: adequate Beta Emma Monitoring Plan Monitoring plan: standard ASA. Post Procedure Analgesic Plan Postoperative analgesic plan: multimodal analgesia. Informed Consent Anesthetic risks, benefits, alternatives, personnel and consent discussed: yes. Patient / Responsible Constitution Party agrees to proceed: yes Patient / Surrogate agrees to blood products: Yes Significant changes in the patient condition since the History and Physical, not otherwise documented in primary service progress note: no. Potential Anesthesia issues that may suggest increased risk of complications or contraindication toplanned procedure: other. Vitals Value Taken Time BP 125/57 10/26/24 0730 Pulse 80 10/26/24 0730 Resp 16 10/26/24 0730 Temp 36.7 ??C (98.1 ??F) 10/26/24 0730 SpO2 98 % 10/26/24 0730 No current facility-administered medications on file as of 10/26/2024. Outpatient Medications as of 10/26/2024 Medication Sig clonazePAM (KLONOPIN) 1 mg tablet Take 1 mg by mouth two times a day as needed for anxiety. aspirin 325 mg tablet Take 1 tablet by mouth once daily. clopidogrel (PLAVIX) 75 mg tablet Take 1 tablet by mouth once daily. venlafaxine HCl (EFFEXOR XR ORAL) Take 150 mg by mouth once daily. cyclobenzaprine (FLEXERIL) 10 mg tablet Take 10 mg by mouth. albuterol HFA (PROAIR HFA) 90 mcg/actuation inhaler Inhale 2 Puffs as instructed every 4 hours as needed for Wheezing/Shortness of Breath. traZODone (DESYREL) 50 mg tablet Take 50 mg by mouth as needed for sedation. cetirizine HCl (CETIRIZINE ORAL) fluticasone (FLONASE) 50 mcg/actuation nasal spray 1-2 Sprays. (Patient not taking: Reported on 07/10/2024) hydrocortisone 2.5 % cream Apply to affected area. meclizine (ANTIVERT) 25 mg tab Take 25 mg by mouth. ondansetron orally disintegrating (ZOFRAN ODT) 4 mg disintegrating tablet pseudoephedrine (SUDAFED) 60 mg tablet Take 60 mg by mouth every 6 hours as needed. (Patient not taking: Reported on 09/24/2024) albuterol sulfate 90 mcg/actuation aebs Inhale as instructed. (Patient not taking: Reported on 07/10/2024) I have interviewed and examined the patient. I have reviewed the medical record and/or the pre-anesthesia evaluation, pertinent labs, and test results. This contains updated information obtained within 48 hours of Surgery/Procedure. SIGNATURE: Danielle Epstein MD PATIENT NAME: Tracy Harrington DATE: October 26, 2024 TIME: 8:00 AM CSN: [id number] documented in this encounter Plan of Treatment Upcoming Encounters Date Type Department Care Team (Latest Contact Info) Description 11/27/2024 8:40 AM EDT [facility] Neurology [address] [place] [address] Heladio Bustos MD [address] [place] [address] Hospital DC Post op Est patient 11/27/2024 3:00 PM EDT Appointment Radiology [address] [address] Dx: Pulsatile tinnitus, left ear [H93.A2] 12/03/2024 3:00 PM EDT [facility] Neurological [address] [place] [address] Deon Montemayor, QUINTEN [address] [place] [address] new consult for Tinnitus CBT per Dr. Montemayor documented as of this encounter Procedures Procedure Name Priority Date/Time Associated Diagnosis Comments PERIPHERAL IV PLACEMENT Routine 10/26/2024 8:11 AM EDT INTUBATION Routine 10/26/2024 8:05 AM EDT documented in this encounter Results * PERIPHERAL IV PLACEMENT (10/26/2024 8:11 AM EDT) Narrative Lucian Santos MD - 10/26/2024 8:11 AM EDT Lucian Santos MD 10/26/2024 8:11 AM PIV General Information Procedure Start Time/Medication Administration: 10/26/2024 8:11 AM Procedure End Time: 10/26/2024 8:11 AM Staffing Anesthesiologist: Lucian Santos MD BEEF FARMER: Birdie Benitez APRN.BEEF FARMER Performed by: YOMAIRA Preparation Sterility Preparation: hand hygiene performed prior to procedure, surgical cap used, mask used, skin prep agent completely dried prior to procedure Site Prep: alcohol Procedure Details Indication: need for IV access Needle Size/Type: 18 gauge angiocath Orientation: Right Location: Hand Imaging Guidance Used: No Lucian Santos MD ANESTHESIA ORDERABLES Final Re sult * Airway (10/26/2024 8:05 AM EDT) Narrative Lucian Santos MD - 10/26/2024 8:05 AM EDT Lucian Santos MD 10/26/2024 8:09 AM Airway General Information Procedure Start Time/Medication Administration: 10/26/2024 8:05 AM Procedure End Time: 10/26/2024 8:08 AM Patient location during procedure: OR Staffing Anesthesiologist: Lucian Santos MD BEEF FARMER: Birdie Benitez APRN.BEEF FARMER Performed by: YOMAIRA Indications and Patient Condition Indications for airway management: anesthesia Preoxygenated: yes anesthesia circuit Method: sleep Difficult Mask: No Final Airway Details Final airway type: endotracheal airway Final Endotracheal Airway: ETT Cuffed: yes Successful intubation technique: video laryngoscopy Devices used: Aguilar Endotracheal tube insertion site: oral Blade: Vinay Blade size: #3 ETT size (mm): 7.0 Measured from: lips Measurement (cm): 22 Placement verified by: capnometry Cormack-Lehane Classification: grade I - full view of glottis Number of attempts at approach: 1 Airway not difficult us Lucian Santos MD ANESTHESIA ORDERABLES Final Re sult documented in this encounter Visit Diagnoses Not on filedocumented in this encounter Administered Medications Inactive Administered Medications - up to 3 most recent administrations Medication Order MAR Action Action Date Dose Rate Site dexAMETHasone sodium phosphate injection (DECADRON) INTRAVENOUS, NEEDED, Starting on Tue10/26/24 at 0820, Until Tue10/26/24 at 1013, Anesthesia Intraprocedure Given 10/26/2024 9:55 AM EDT 4 mg Given 10/26/2024 8:20 AM EDT 6 mg diphenhydrAMINE injection (BENADRYL) INTRAVENOUS, NEEDED, Starting on Tue10/26/24 at 0828, Until Tue10/26/24 at 1013, Anesthesia Intraprocedure Given 10/26/2024 8:28 AM EDT 25 mg ePHEDrine injection (AKOVAZ) INTRAVENOUS, NEEDED, Starting on Tue10/26/24 at 0913, Until Tue10/26/24 at 1013, Anesthesia Intraprocedure Given 10/26/2024 9:13 AM EDT 10 mg fentaNYL 50 mcg/mL injection (SUBLIMAZE) INTRAVENOUS, NEEDED, Starting on Tue10/26/24 at 0801, Until Tue10/26/24 at 1013, Anesthesia Intraprocedure Given 10/26/2024 10:10 AM EDT 50 mcg Given 10/26/2024 9:57 AM EDT 50 mcg Given 10/26/2024 9:51 AM EDT 50 mcg heparin 1,000 unit/mL injection INTRAVENOUS, NEEDED, Starting on Tue10/26/24 at 0848, Until Tue10/26/24 at 1013, Anesthesia Intraprocedure Given 10/26/2024 8:48 AM EDT 4,000 Units lactated ringers iv infusion INTRAVENOUS, X (ONE-STEP ONLY) CONTINUOUS PRN, Starting on Tue10/26/24 at 0808, Until Tue10/26/24 at 1013, Anesthesia Intraprocedure New Bag/Syringe/Bottle 10/26/2024 8:08 AM EDT lidocaine (PF) 10 mg/mL (1 %) injection (XYLOCAINE) INTRAVENOUS, NEEDED, Starting on Tue10/26/24 at 0801, Until Tue10/26/24 at 1013, Anesthesia Intraprocedure Given 10/26/2024 8:01 AM EDT 100 mg midazolam (PF) injection (VERSED) INTRAVENOUS, NEEDED, Starting on Tue10/26/24 at 0758, Until Tue10/26/24 at 1013, Anesthesia Intraprocedure Given 10/26/2024 7:58 AM EDT 2 mg NaCl 0.9% iv infusion INTRAVENOUS, X (ONE-STEP ONLY) CONTINUOUS PRN, Starting on Tue10/26/24 at 0752, Until Tue10/26/24 at 1013, Anesthesia Intraprocedure New Bag/Syringe/Bottle 10/26/2024 7:52 AM EDT ondansetron (PF) injection (ZOFRAN) INTRAVENOUS, NEEDED, Starting on Tue10/26/24 at 0919, Until Tue10/26/24 at 1013, Anesthesia Intraprocedure Given 10/26/2024 9:19 AM EDT 4 mg PHENYLephrine 10 mg in NaCl 0.9% 250 mL (ALISON-SYNEPHRINE) INTRAVENOUS, X (ONE-STEP ONLY) CONTINUOUS PRN, Starting on Tue10/26/24 at 0909, Until Tue10/26/24 at 1013, Anesthesia Intraprocedure Rate/Dose Change 10/26/2024 9:21 AM EDT 40 mcg/min 60 mL/hr New Bag/Syringe/Bottle 10/26/2024 9:09 AM EDT 50 mcg/min 7 5 mL/hr PHENYLephrine injection (ALISON-SYNEPHRINE) INTRAVENOUS, NEEDED, Starting on Tue10/26/24 at 0853, Until Tue10/26/24 at 1013, Anesthesia Intraprocedure Given 10/26/2024 9:11 AM EDT 200 mcg Given 10/26/2024 9:05 AM EDT 150 mcg Given 10/26/2024 9:02 AM EDT 150 mcg propofol injection (DIPRIVAN) INTRAVENOUS, NEEDED, Starting on Tue10/26/24 at 0801, Until Tue10/26/24 at 1013, Anesthesia Intraprocedure Given 10/26/2024 8:05 AM EDT 50 mg Given 10/26/2024 8:01 AM EDT 150 mg rocuronium injection INTRAVENOUS, NEEDED, Starting on Tue10/26/24 at 0801, Until Tue10/26/24 at 1013, Anesthesia Intraprocedure Given 10/26/2024 9:18 AM EDT 10 mg Given 10/26/2024 8:44 AM EDT 20 mg Given 10/26/2024 8:20 AM EDT 30 mg sugammadex injection (BRIDION) INTRAVENOUS, NEEDED, Starting on Tue10/26/24 at 0936, Until Tue10/26/24 at 1013, Anesthesia Intraprocedure Given 10/26/2024 9:36 AM EDT 200 mg documented in this encounter Care Teams Building Rental Manager Relationship Specialty Start Date End Date Rufino Ayala PA-C [address] [address] PCP - General Physician Music Theory Professor 06/21/24 Rufino Ayala PA-C [address] [address] Referring Physician Music Theory Professor 04/16/24 Terry Kovacs MD [address] [place], [place] [id number] Referring Ent - Otolaryngology 06/07/24 documented as of this encounter
[2024-11-05 17:31] VITALS: BP 152/115; PULSE 112; O2SAT 99; BMI 23.5
--- OUTSIDE RECORDS SUMMARY | 2024-11-05 17:34 | XMS_ITS | Encounter Summary ---
Author Organization [facility] Address [address] [place] [address] Care Team Providers Care National Sales Trainer Name Role Phone Rufino Ayala PA-C Unavailable [phone] Terry Kovacs MD Unavailable Rufino Ayala PA-C Primary Care Provider [phone] Source Comments In the event this information is protected by the Federal Confidentiality of Alcohol and Drug AbusePatient Records regulations: The Federal rules restrict any use of the information to criminally investigate or prosecute any alcohol or drug abuse patient.[facility] Encounter Details Date Type Department Care Team (Late st Contact Info) Description 06/28/2024 Get Medical Advice Otolaryngology [address] [place] [address] [address] [place] [address] Terry Kovacs MD [address] [place] [address] Disability Leave Paperwork Social History Tobacco Use Types Packs/Day Years Used Date Smoking Tobacco: Never Smokeless Tobacco: Never Alcohol Use Standard Drinks/Week Comments Yes 0 (1 standard drink = 0.6 oz pur e alcohol) socially Area Deprivation Index Answer Date Diaz rded National Score (1-100), lower number is lower ri sk Not on file 05/02/2020 State Score (1-10), lower number is lower risk N ot on file 05/02/2020 Data from: https://www.neighborhoodatlas.medicine[facility].edu/. Last address used for calculation Not on file 05/02/2020 Comments Unknown Sex and Gender Information Value Date Recorded Sex Assigned at Not on file Legal Sex Female 9:59 AM EDT Gender Identity Not on file Sexual Orientation Not on file documented as of this encounter Plan of Treatment Upcoming Encounters Date Type Department Care Team (Latest Contact Info) Description 11/27/2024 8:40 AM EDT [facility] Neurology [address] [place] [address] Heladio Bustos MD [address] [place], [place] [phone] Dx Hospital DC Post op Est patient 11/27/2024 3:00 PM EDT Appointment Radiology [address] [place] [address] Dx: Pulsatile tinnitus, left ear [H93.A2] 12/03/2024 3:00 PM EDT [facility] Neurological [address] [place] [address] Deon Montemayor PSYD [address] [place] [address] new consult for Tinnitus CBT per Dr. Montemayor documented as of this encounter Visit Diagnoses Not on filedocumented in this encounter Care Teams National Sales Trainer Relationship Specialty Start Date End Date Rufino Ayala PA-C [address] [address] PCP - General Physician Healthcare Applications Analyst 06/21/24 Rufino Ayala PA-C [address] [address] Referring Physician Healthcare Applications Analyst 04/16/24 Terry Kovacs MD [address] [place] [address] Referring Ent - Otolaryngology 06/07/24 documented as of this encounter
--- OUTSIDE RECORDS SUMMARY | 2024-11-05 17:34 | XMS_ITS | Encounter Summary ---
Author Organization [facility] Address [address] [place] [address] Care Team Providers Care Health Care Law Specialist Name Role Phone Rufino Ayala PA-C Unavailable [phone] Terry Kovacs MD Unavailable Rufino Ayala PA-C Primary Care Provider [phone] Source Comments In the event this information is protected by the Federal Confidentiality of Alcohol and Drug AbusePatient Records regulations: The Federal rules restrict any use of the information to criminally investigate or prosecute any alcohol or drug abuse patient.[facility] Encounter Details Date Type Department Care Team (Late st Contact Info) Description 09/26/2024 Patient Msg Endovascular Center [address] [place], [place] [id number] Provider, [facility] Diagnostic Cerebral Angiogram Social History Tobacco Use Types Packs/Day Years [...] N ot on file 05/02/2020 Data from: https://www.neighborhoodatlas.[facility]/. Last address used for calculation Not on file 05/02/2020 Comments No Sex and Gender Information Value Date Recorded Sex Assigned at Not on file Legal Sex Female 9:59 AM EDT Gender Identity Not on file Sexual Orientation Not on file documented as of this encounter Plan of Treatment Upcoming Encounters Date Type Department Care Team (Latest Contact Info) Description 11/27/2024 8:40 AM EDT [facility] Neurology [address] [place] [address] Heladio Bustos MD [address] [place] [address] Dx Hospital DC Post op Est patient 11/27/2024 3:00 PM EDT Appointment Radiology [address] [address] Dx: Pulsatile tinnitus, left ear [H93.A2] 12/03/2024 3:00 PM EDT [facility] Neurological [place] [address] [place] [address] Deon Montemayor PSYD [address] [place] [address] new consult for Tinnitus CBT per Dr. Montemayor documented as of this encounter Visit Diagnoses Not on filedocumented in this encounter Care Teams Health Care Law Specialist Relationship Specialty Start Date End Date Rufino Ayala PA-C [address] [place] [address] PCP - General Physician Application Release Manager 06/21/24 Rufino Ayala PA-C [address] [place] [address] Referring Physician Application Release Manager 04/16/24 Terry Kovacs MD [address] [place] [address] Referring Ent - Otolaryngology 06/07/24 documented as of this encounter
--- OUTSIDE RECORDS SUMMARY | 2024-11-05 17:34 | XMS_ITS | Encounter Summary ---
Author Organization [facility] Address [address] [place] [address] Care Team Providers Care Molding Machine Operator Name Role Phone Rufino Ayala PA-C Unavailable [phone] Terry Kovacs MD Unavailable Rufino Ayala PA-C Primary Care Provider [phone] Source Comments In the event this information is protected by the Federal Confidentiality of Alcohol and Drug AbusePatient Records regulations: The Federal rules restrict any use of the information to criminally investigate or prosecute any alcohol or drug abuse patient.[facility] Encounter Details Date Type Department Care Team (Late st Contact Info) Description 06/27/2024 Patient Msg Pre Anesthesia [address] [place], [place] [id number] Provider, Ccf PACC appt check in Social History Tobacco Use Types Packs/Day Years [...] N ot on file 05/02/2020 Data from: https://www.neighborhoodatlas.[facility]/. Last address used for calculation Not on file 05/02/2020 Comments Unknown Sex and Gender Information Value Date Recorded Sex Assigned at Not on file Legal Sex Female 9:59 AM EDT Gender Identity Not on file Sexual Orientation Not on file documented as of this encounter Plan of Treatment Upcoming Encounters Date Type Department Care Team (Latest Contact Info) Description 11/27/2024 8:40 AM EDT [facility] [address] [place] [address] Heladio Bustos MD [address] [place] [address] Dx Hospital DC Post op Est patient 11/27/2024 3:00 PM EDT Appointment Radiology [address], [place] [address] Dx: Pulsatile tinnitus, left ear [H93.A2] 12/03/2024 3:00 PM EDT [facility] [address] [place] [address] Deon Montemayor PSYD [address] [place] [address] new consult for Tinnitus CBT per Dr. Montemayor documented as of this encounter Visit Diagnoses Not on filedocumented in this encounter Care Teams Molding Machine Operator Relationship Specialty Start Date End Date Rufino Ayala PA-C [address] [place] [address] PCP - General Physician Pointing Machine Operator 06/21/24 Rufino Ayala PA-C [address] [place] [address] Referring Physician Pointing Machine Operator 04/16/24 Terry Kovacs MD [address] [place] [address] Referring Ent - Otolaryngology 06/07/24 documented as of this encounter
--- OUTSIDE RECORDS SUMMARY | 2024-11-05 17:34 | XMS_ITS | Encounter Summary ---
Author Organization [facility] Address [address] [place] [address] Care Team Providers Care Pattern Mechanic Name Role Phone Rufino Ayala PA-C Unavailable [phone] Terry Kovacs MD Unavailable Rufino Ayala PA-C Primary Care Provider [phone] Source Comments In the event this information is protected by the Federal Confidentiality of Alcohol and Drug AbusePatient Records regulations: The Federal rules restrict any use of the information to criminally investigate or prosecute any alcohol or drug abuse patient.[facility] Encounter Details Date Type Department Care Team (Late st Contact Info) Description 10/11/2024 Patient Msg Head and Neck [place] [address] [place] [address] Provider, [facility]cf Hearing Aid Benefits Information Social History Tobacco Use Types Packs/Day Years [...] is lower risk 4 10/02/2024 Data from: https://www.neighborhoodatlas.medicine.[facility].edu/. Last address used for calculation [address] [facility] 292 10/02/2024 Comments No Sex and Gender Information Value Date Recorded Sex Assigned at Not on file Legal Sex Female 9:59 AM EDT Gender Identity Not on file Sexual Orientation Not on file documented as of this encounter Plan of Treatment Upcoming Encounters Date Type Department Care Team (Latest Contact Info) Description 11/27/2024 8:40 AM EDT [facility] Neurology [address] [place] [address] Heladio Bustos MD [address] [place] [address] Dx Hospital DC Post op Est patient 11/27/2024 3:00 PM EDT Appointment Radiology [address] [address] Dx: Pulsatile tinnitus, left ear [H93.A2] 12/03/2024 3:00 PM EDT [facility]rological [facility] [address] [place] [address] Deon Montemayor PSYD [address], [place] [address] new consult for Tinnitus CBT per Dr. Montemayor documented as of this encounter Visit Diagnoses Not on filedocumented in this encounter Care Teams Pattern Mechanic Relationship Specialty Start Date End Date Rufino Ayala PA-C [address] [place] [address] PCP - General Physician Dairy Bacteriologist 06/21/24 Rufino Ayala PA-C [address] [place] [address] Referring Physician Dairy Bacteriologist 04/16/24 Terry Kovacs MD [address] [place] [address] Referring Ent - Otolaryngology 06/07/24 documented as of this encounter
--- OUTSIDE RECORDS SUMMARY | 2024-11-05 17:34 | XMS_ITS | Encounter Summary ---
Author Organization [facility] Address [address] [place] [address] Care Team Providers Care Gun Stocker Name Role Phone Rufino Ayala PA-C Unavailable Terry Kovacs MD Unavailable Rufino Ayala PA-C Primary Care Provider [phone] Source Comments In the event this information is protected by the Federal Confidentiality of Alcohol and Drug AbusePatient Records regulations: The Federal rules restrict any use of the information to criminally investigate or prosecute any alcohol or drug abuse patient.[facility] Encounter Details Date Type Department Care Team (Late st Contact Info) Description 10/30/2024 Patient Msg Neurology [address] [place] [id number] Provider, Ccf call for sooner appointment Social History Tobacco Use Types Packs/Day Years [...] is lower risk 4 10/02/2024 Data from: https://www.[facility] campus[facility]las.[facility]/. Last address used for calculation [address] [...] Contact Info) Description 11/27/2024 8:40 AM EDT [facility] Neurology [address] [facility] [place] [address] Heladio Bustos MD [address] [place] [address] Dx Hospital DC Post op Est patient 11/27/2024 3:00 PM EDT Appointment Radiology [address] [place] [address] Dx: Pulsatile tinnitus, left ear [H93.A2] 12/03/2024 3:00 PM EDT [facility] Neurological [facility] [address] [place] [address] Deon Montemayor, QUINTEN [address] [place] [address] new consult for Tinnitus CBT per Dr. Montemayor documented as of this encounter Visit Diagnoses Not on filedocumented in this encounter Care Teams Gun Stocker Relationship Specialty Start Date End Date Rufino Ayala PA-C [address] [place] [address] PCP - General Physician Hospital Insurance Representative 06/21/24 Rufino Ayala PA-C [address] [place] [address] Referring Physician Hospital Insurance Representative 04/16/24 Terry Kovacs MD [address] [place] [address] Referring Ent - Otolaryngology 06/07/24 documented as of this encounter
--- OUTSIDE RECORDS SUMMARY | 2024-11-05 17:34 | XMS_ITS | Patient Health Record ---
Author Organization [facility] Address [address] [place] [address] Care Team Providers Care Industrial Economist Name Role Phone [facility] Primary Care, [facility] Primary Care Primary Car e Provider Unavailable Jared Nj Kala Unavailable Rob Deja Unavailable [phone] Allergies No Known Allergies Results Component Value Reference Range Notes EXTRA LAVENDER-TOP TUBE Reviewed date:03/20/2024 07:38:59 AM Interpretation:Invalid Performing Lab:PB, [facility]-[id number] [facility] 2, [place] Kala Roth M.D. Notes/Report: 0 Received Date: COMMENT An extra specimen was received with no test requested. The specimen will be maintained in storage in case additional testing is needed. Please call the client service department for further assistance. MARIAH KUMAR VIRUS ANTIBODY PANEL Reviewed date:03/20/2024 03:58:06 PM Interpretation:Abnormal Performing Lab:QPT, [id number], [address] [facility] Raj Jacobson MD Notes/Report: Received Date: 0 EBV VIRAL CAPSID AG (VCA) AB (IGM) <36.00 U/mL Interpretation ---- <36.00 Negative 36.00-43.99 Equivocal >43.99 Positive EBV VIRAL CAPSID AG (VCA) AB (IGG) 445.00 U/mL Interpretation ---- <18.00 Negative 18.00-21.99 Equivocal >21.99 Positive EBV NUCLEAR AG (EBNA) AB (IGG) >600.00 U/mL Interpretation ---- <18.00 Negative 18.00-21.99 Equivocal >21.99 Positive INTERPRETATION: 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 In infants, a similar pattern may occur as a result of passive maternal transfer of antibody. Reason For Referral No Information Medications Medication SIG (Take, Route, Frequency, Duration) Notes Start Date End Date Status Ventolin HFA 108 (90 Base) MCG/ACT 1 puff as needed Inhalation every 4 hrs Active Immunizations Vaccine Route Administration Date Status Comme nts z2018 Flulaval Quad 0.5mL PF S (0.5mL Admin) 6 months & older Unknown 05/09/2019 Refused z9 Fluzone Quad MDV (0.5m L Admin) 3y/o & older Unknown 07/24/2019 Refused z2022 Fluzone Quad PFS (0.5m L Admin) 6 months & older Unknown 02/22/2022 Contraindications z2022 Fluzone Quad PFS (0.5m L Admin) 6 months & older Unknown 04/27/2022 Refused z2022 Fluzone Quad PFS (0.5m L Admin) 6 months & older Unknown 10/03/2022 Refused z2023 Fluzone, 6mo & older, Quad MDV (0.5mL Admin) Unknown 02/07/2023 Refused Social History Tobacco Use: Social History Observation Description Date Details (start date - stop date) Never Smoker NA - NA Tobacco Control (Standard) Question Answer Notes Tobacco use: Nonsmoker Problems Problem Type SNOMED Code ICD Code Onset Dates Problem Status W/U Status Risk Notes Problem Allergic rhinitis (28083002) Allergic rhinitis (J30.9) Active confirmed Problem Asthma (262963864) Asthma (J45.909) Active confirmed Problem 74246888 Anxiety (F41.9) Active confirmed Problem Elevated blood pressure reading without diagnosis of hypertension (511235204) Elevated blood pressure reading in office without diagnosis of hypertension (R03.0) Active confirmed Vital Signs Temperature 98.4 degrees Fahrenheit 03/16/2024 Respiratory Rate 16 /min 03/16/2024 Blood pressure diastolic 60 mm Hg 03/16/2024 Height 68 in 03/16/2024 Blood pressure systolic 110 mm Hg 03/16/2024 Weight 146 lbs 03/16/2024 BMI 22.2 kg/m2 03/16/2024 Encounters Encounter Location Date Provider Diagnosis [address] [facility] [address] [place] [address] 03/16/2024 Kala Nj Acute recurrent pansinusitis J01.41 ; Other fatigue R53.83 and Influenza vaccination declined Z28.21 [address] [address] [place] [address] [place] [address] 03/20/2024 Deja Rivas [address] [facility] [address] [place] [address] 03/20/2024 Deja Rivas Assessments Encounter Date Diagnosis (ICD Code) Assessment Notes Treatment Notes Treatment Clinical Notes Section Notes 03/16/2024 Acute recurrent pansinusitis (ICD-10 - J01.41) Acute Sinusitis: Care Instructions material was published, The Sinuses: Anatomy Sketch material was published Complete the entire course of antibiotics as prescribed, even when symptoms have improved, to prevent a relapse of infection and the development of antibiotic resistance. Follow up in the clinic or with PCP in 4-5 days if no improvement or worsening of symptoms. Acute sinusitis is an inflammation of the mucous membranes inside the nose and sinuses. Sinuses are the hollow spaces in your skull around the eyes and nose. Acute sinusitis often follows a cold. Acute sinusitis causes thick, discolored mucus that drains from the nose or down the back of the throat. It also can cause pain and pressure in your head and face along with a stuffy or blocked nose. In most cases, sinusitis gets better on its own in 1 to 2 weeks. But some mild symptoms may last for several weeks. Sometimes antibiotics are needed if there is a bacterial infection. Follow-up care is a pinto part of your treatment and safety. Be sure to make and go to all appointments, and call your doctor if you are having problems. It's also a good idea to know your test results and keep a list of the medicines you take. How can you care for yourself at home?Use saline (saltwater) nasal washes. This can help keep your nasal passages open and wash out mucus and allergens.You can buy saline nose washes at a grocery store or drugstore. Follow the instructions on the package.You can make your own at home. Add 1 teaspoon of non-iodized salt and 1 teaspoon of baking soda to 2 cups of distilled or boiled and cooled water. Fill a squeeze bottle or a nasal cleansing pot (such as a neti pot) with the nasal wash. Then put the tip into your nostril, and lean over the sink. With your mouth open, gently squirt the liquid. Repeat on the other side.Try a decongestant nasal spray like oxymetazoline (Afrin). Do not use it for more than 3 days in a row. Using it for more than 3 days can make your congestion worse.If needed, take an qcyu-usg-kakyuhy pain medicine, such as acetaminophen (Tylenol), ibuprofen (Advil, Motrin), or naproxen (Aleve). Read and follow all instructions on the label.If the doctor prescribed antibiotics, take them as directed. Do not stop taking them just because you feel better. You need to take the full course of antibiotics.Be careful when taking xqwv-zri-bwkizub cold or flu medicines and Tylenol at the same time. Many of these medicines have acetaminophen, which is Tylenol. Read the labels to make sure that you are not taking more than the recommended dose. Too much acetaminophen (Tylenol) can be harmful.Try a steroid nasal spray. It may help with your symptoms.Breathe warm, moist air. You can use a steamy shower, a hot bath, or a sink filled with hot water. Avoid cold, dry air. Using a humidifier in your home may help. Follow the directions for cleaning the machine.When should you call for help?Call your doctor now or seek immediate medical care if: You have new or worse swelling, redness, or pain in your face or around one or both of your eyes.You have double vision or a change in your vision.You have a high fever.You have a severe headache and a stiff neck.You have mental changes, such as feeling confused or much less alert.Watch closely for changes in your health, and be sure to contact your doctor if: You are not getting better as expected. 03/16/2024 Other fatigue (ICD-10 - R53.83) Fatigue: Care Instructions material was published Will order EB (mono testing). [facility] will call with the results once available. 03/16/2024 Influenza vaccination declined (ICD-10 - Z28.21) 03/16/2024 Other Cefdinir Oral Capsule (CEFDINIR - ORAL) material was published Visit summary given to and discussed with patient and/or parent who verbalizes understanding and agreement with plan of care Thank you for your visit. Please look for the satisfaction survey that you will receive via email. We look forward to receiving your feedback regarding your experience at [facility]. Plan Of Treatment No Information Insurance Providers Payer Name Payer Address Payer Phone Subscriber Number Group Number Insured Name Patient Relationship to Insured Coverage Start Date Coverage End Date [facility] [address] [place] [phone] [id number] Tracy Harrington Self - patient is the insured Medical (General) History Medical History History ICD Code Asthma J45.909 Allergic rhinitis J30.9 Surgical History Surgery Date(Month/Year) Hand Surgery Ovarian Cyst removed X 2 appendectomy 2021 Hospitalization History Reason Date(Month/Year) surgeries
--- OUTSIDE RECORDS SUMMARY | 2024-11-05 17:34 | XMS_ITS | Encounter Summary ---
Author Organization [facility] Address [address] [place] [address] Care Team Providers Care Welding Machine Operator Submerged Arc Name Role Phone Rufino Ayala PA-C Unavailable [phone] Terry Kovacs MD Unavailable Rufino Ayala PA-C Primary Care Provider [phone] Source Comments In the event this information is protected by the Federal Confidentiality of Alcohol and Drug AbusePatient Records regulations: The Federal rules restrict any use of the information to criminally investigate or prosecute any alcohol or drug abuse patient.[facility] Encounter Details Date Type Department Care Team (Late st Contact Info) Description 10/29/2024 Orders Only Endovascular Center [address] [place] [address] Heladio Bustos MD [address] [place] [address] Nausea and vomiting, unspecified vomiting type (Primary Dx); Heartburn Social History Tobacco Use Types Packs/Day Years [...] is lower risk 4 10/02/2024 Data from: https://www.neighborhoodatlas.medicine.[facility]/. Last address used for calculation [address] [address] 10/02/2024 Comments No Sex and Gender Information Value Date Recorded Sex Assigned at Not on file Legal Sex Female 9:59 AM EDT Gender Identity Not on file Sexual Orientation Not on file documented as of this encounter Plan of Treatment Upcoming Encounters Date Type Department Care Team (Latest Contact Info) Description 11/27/2024 8:40 AM EDT [facility] Neurology [address] [place] [address] Heladio Bustos MD [address] [place] [address] Dx Hospital DC Post op Est patient 11/27/2024 3:00 PM EDT Appointment Radiology [address] [place] [address] Dx: Pulsatile tinnitus, left ear [H93.A2] 12/03/2024 3:00 PM EDT [facility] Neurological [facility] [address] [place] [address] Deon Montemayor PSYD [address] [place] [address] new consult for Tinnitus CBT per Dr. Montemayor documented as of this encounter Visit Diagnoses Diagnosis Nausea and vomiting, unspecified vomiting type- Primary Heartburn documented in this encounter Care Teams Welding Machine Operator Submerged Arc Relationship Specialty Start Date End Date Rufino Ayala PA-C [address] [place] [address] PCP - General Physician Rail Walker 06/21/24 Rufino Ayala PA-C [address] [place] [address] Referring Physician Rail Walker 04/16/24 Terry Kovacs MD [address] [place] [address] Referring Ent - Otolaryngology 06/07/24 documented as of this encounter
--- OUTSIDE RECORDS SUMMARY | 2024-11-05 17:34 | XMS_ITS | Encounter Summary ---
Author Organization [facility] Address [address] [place] [address] Care Team Providers Care State Trooper Name Role Phone Rufino Ayala PA-C Unavailable [phone] Terry Kovacs MD Unavailable Rfuino Ayala PA-C Primary Care Provider [phone] Source Comments In the event this information is protected by the Federal Confidentiality of Alcohol and Drug AbusePatient Records regulations: The Federal rules restrict any use of the information to criminally investigate or prosecute any alcohol or drug abuse patient.[facility] Encounter Details Date Type Department Care Team (Late st Contact Info) Description 05/17/2024 Patient Msg Otolaryngology [address] [place] [address] Hansa Andrade, WEIGH MACHINE OPERATOR.FUNCTIONAL SUPPORT ANALYST [address] [place], [place] [id number] [place] results Social History Tobacco Use Types Packs/Day Years [...] N ot on file 05/02/2020 Data from: https://www.neighborhoodatlas.medicine.[facility].edu/. Last address used for calculation Not on file 05/02/2020 Comments Unknown Sex and Gender Information Value Date Recorded Sex Assigned at Not on file Legal Sex Female 9:59 AM EDT Gender Identity Not on file Sexual Orientation Not on file documented as of this encounter Plan of Treatment Upcoming Encounters Date Type Department Care Team (Latest Contact Info) Description 11/27/2024 8:40 AM EDT [facility] Neurology [address] [place] [address] Heladio Bustos MD [address] [place], [place] [address] Dx Hospital DC Post op Est patient 11/27/2024 3:00 PM EDT Appointment Radiology [address] [place] [address] Dx: Pulsatile tinnitus, left ear [H93.A2] 12/03/2024 3:00 PM EDT [facility] Neurological [facility] [address] [place] [address] Deon Montemayor PSYD [address] [place] [address] new consult for Tinnitus CBT per Dr. Montemayor documented as of this encounter Visit Diagnoses Not on filedocumented in this encounter Care Teams State Trooper Relationship Specialty Start Date End Date Rufino Ayala PA-C [address] [facility] [address] [address] PCP - General Physician Boiler Inspector 06/21/24 Rufino Ayala PA-C [address] [facility] [address] [place] [address] Referring Physician Boiler Inspector 04/16/24 Terry Kovacs MD [address] [place], [place] [address] Referring Ent - Otolaryngology 06/07/24 documented as of this encounter
--- OUTSIDE RECORDS SUMMARY | 2024-11-05 17:34 | XMS_ITS | Encounter Summary ---
Author Organization [facility] Address [address] [place] [address] Care Team Providers Care Payroll Accounting Specialist Name Role Phone Rufino Ayala PA-C Unavailable [phone] Terry Kovacs MD Unavailable Rufino Ayala PA-C Primary Care Provider [phone] Source Comments In the event this information is protected by the Federal Confidentiality of Alcohol and Drug AbusePatient Records regulations: The Federal rules restrict any use of the information to criminally investigate or prosecute any alcohol or drug abuse patient.[facility] Encounter Details Date Type Department Care Team (Late st Contact Info) Description 10/25/2024 Patient Msg Pre Anesthesia [address] [place] [phone] Goldy Rosas APRN.RAIL ENGINEER [address] [address] Pre-operative instructions Social History Tobacco Use Types Packs/Day Years [...] is lower risk 4 10/02/2024 Data from: https://www.neighborhoodatlas.medicine.[facility].edu/. Last address used for calculation [address] [address] 10/02/2024 Comments No Sex and Gender Information Value Date Recorded Sex Assigned at Not on file Legal Sex Female 9:59 AM EDT Gender Identity Not on file Sexual Orientation Not on file documented as of this encounter Plan of Treatment Upcoming Encounters Date Type Department Care Team (Latest Contact Info) Description 11/27/2024 8:40 AM EDT [facility] Neurology [address] [place] [address] Heladio Bustos MD [address] [place], [place] [address] Dx Hospital DC Post op Est patient 11/27/2024 3:00 PM EDT Appointment Radiology [address] [address] Dx: Pulsatile tinnitus, left ear [H93.A2] 12/03/2024 3:00 PM EDT [facility] Neurological [facility] [address] [place] [address] Deon Montemayor PSYD [address] [place] [address] new consult for Tinnitus CBT per Dr. Montemayor documented as of this encounter Visit Diagnoses Not on filedocumented in this encounter Care Teams Payroll Accounting Specialist Relationship Specialty Start Date End Date Rufino Ayala PA-C [address] [facility] [address] [place] [address] PCP - General Physician Chief Inspector 06/21/24 Rufino Ayala PA-C [address] [facility] [address] [place] [address] Referring Physician Chief Inspector 04/16/24 Terry Kovacs MD [address] [place] [address] Referring Ent - Otolaryngology 06/07/24 documented as of this encounter
--- OUTSIDE RECORDS SUMMARY | 2024-11-05 17:34 | XMS_ITS | Encounter Summary ---
Author Organization [facility] Address [address] [place] [address] Care Team Providers Care Disk Operator Name Role Phone Rufino Ayala PA-C Unavailable [phone] Terry Kovacs MD Unavailable Rufino Ayala PA-C Primary Care Provider [phone] Source Comments In the event this information is protected by the Federal Confidentiality of Alcohol and Drug AbusePatient Records regulations: The Federal rules restrict any use of the information to criminally investigate or prosecute any alcohol or drug abuse patient.[facility] Encounter Details Date Type Department Care Team (Late st Contact Info) Description 10/27/2024 Get Medical Advice [facility] Center [address] [place] [address] Heladio Bustos MD [address] [place] [address] Low Levels on Blood Work Social History Tobacco Use Types Packs/Day Years Used Date Smoking Tobacco: Never Smokeless Tobacco: Never Alcohol Use Standard Drinks/Week Comments Yes 0 (1 standard drink = 0.6 oz pur e alcohol) socially- twice a month Area Deprivation Index Answer Date Diaz rded National Score (1-100), lower number is lower ri 63 10/02/2024 State Score (1-10), lower number is lower risk 4 10/02/2024 Data from: https://www.neighborhoodatlas.medicine.[facility].edu/. Last address used for calculation [address] 10/02/2024 Comments No Sex and Gender Information Value Date Recorded Sex Assigned at Not on file Legal Sex Female 9:59 AM EDT Gender Identity Not on file Sexual Orientation Not on file documented as of this encounter Plan of Treatment Upcoming Encounters Date Type Department Care Team (Latest Contact Info) Description 11/27/2024 8:40 AM EDT [facility] Neurology [address] [place] [address] Heladio Bustos MD [address] [place], [place] [id number] Dx Hospital DC Post op Est patient 11/27/2024 3:00 PM EDT Appointment Radiology [address] [place] [id number] Dx: Pulsatile tinnitus, left ear [H93.A2] 12/03/2024 3:00 PM EDT [facility] Neurological [place] [address] [place] [address] Deon Montemayor PSYD [address] [place] [id number] new consult for Tinnitus CBT per Dr. Montemayor documented as of this encounter Visit Diagnoses Not on filedocumented in this encounter Care Teams Disk Operator Relationship Specialty Start Date End Date Rufino Ayala PA-C [address] [facility] [address] [place] [address] PCP - General Physician Reservation Clerk 06/21/24 Rufino Ayala PA-C [address] [facility] [address] [place] [address] Referring Physician Reservation Clerk 04/16/24 Terry Kovacs MD [address] [place], [place] [id number] Referring Ent - Otolaryngology 06/07/24 documented as of this encounter
--- OUTSIDE RECORDS SUMMARY | 2024-11-05 17:34 | XMS_ITS | Clinical Summary ---
Author Organization [facility] Address [address] [place] [address] Care Team Providers Care Amplifier Mechanic Name Role Phone Rufino Ayala PA-C Unavailable [phone] Terry Kovacs MD Unavailable Rufino Ayala PA-C Primary Care Provider [phone] Allergies Active Allergy Reactions Criticality Noted Date Comments Enbucrilate Rash High 07/06/2024 Generalized red, itchy, painful rash with skin peeling over abdomen despite area where liquid bandage was applied Medications albuterol sulfate 90 mcg/actuation aebs Inhale as instructed. Active albuterol HFA (PROAIR HFA) 90 mcg/actuation inhalerIndicatio ns:Mild intermittent asthma without complication (HCC),Cough,Low grade fever Inhale 2 Puffs as instructed every 4 hours as needed for Wheezing/Shortne ss of Breath. 1 Inhaler 1 020 Active cetirizine HCl (CETIRIZINE ORAL) 023 Active cyclobenzaprine (FLEXERIL) 10 mg tablet Take 10 mg by mouth. 022 Active fluticasone (FLONASE) 50 mcg/actuation nasal spray 1-2 Sprays. 024 2024 Active hydrocortisone 2.5 % cream Apply to affected area. 024 Active meclizine (ANTIVERT) 25 mg tab Take 25 mg by mouth. 023 Active pseudoephedrine (SUDAFED) 60 mg tablet Take 60 mg by mouth every 6 hours as needed. 11/20/2 024 Active venlafaxine HCl (EFFEXOR XR ORAL) Take 150 mg by mouth once daily. Active traZODone (DESYREL) 50 mg tablet Take 50 mg by mouth as needed for sedation. Active aspirin 325 mg tablet Take 1 tablet by mouth once daily. 30 tablet 5 025 2024 Active clopidogrel (PLAVIX) 75 mg tablet Take 1 tablet by mouth once daily. 31 tablet 1 Active clonazePAM (KLONOPIN) 1 mg tablet Take 1 mg by mouth two times a day as needed for anxiety. Active acetaminophen (TYLENOL) 500 mg tablet Take 2 tablets by mouth every 6 hours as needed for pain. Active methocarbamol (ROBAXIN) 500 mg tablet Take 1 tablet by mouth three times a day as needed (Headache). 30 tablet 10/28/19 25 1:12 PM EDT Active dexAMETHasone (DECADRON) 4 mg tablet Take 1 tablet by ORAL/FEEDING TUBE route two times a day with meals for 7 days, THEN a half tablet two times a day with meals for 7 days. 21 tablet 10/28/19 25 1:12 PM EDT 025 2024 Active ondansetron orally disintegrating (ZOFRAN ODT) 4 mg disintegrating tabletIndication s:Nausea and vomiting, unspecified vomiting type Take 1 tablet by mouth every 12 hours as needed for nausea/vomiting for up to 14 doses. [address] (PROTONIX) 40 mg tabletIndication s:Heartburn Take 1 tablet by mouth once daily. 90 tablet 025 2024 Active ondansetron orally disintegrating (ZOFRAN ODT) 4 mg disintegrating tablet 017 2024 Discontinued venlafaxine ER (EFFEXOR XR) 150 mg 24 hr capsule Take 150 mg by mouth. 024 2024 Discontinued(D uplicate Entry) iv contrast (will be provided with radiology [...] CT contrast administration guidelines link. 1 each 025 2024 Active Problems Problem Noted Date Diagnosed Date Pulsatile tinnitus 10/26/2024 Assessment & Plan (10/26/2024 1:57 PM EDT): 10/26/2024 Successful left transverse-sigmoid stenting Maintain aspirin + clopidogrel Neuro/ vascular checks per protocol PAD #1 labs Follow up one month NSGY ABDULLAHI PONV (postoperative nausea and vomiting) 025 Assessment & Plan (10/25/2024 8:48 AM EDT): Hx of PONV. Patient has responded well to Zofran in the past. Asthma 07/04/2024 Assessment & Plan (10/25/2024 8:47 AM EDT): Stable on Albuterol inhaler as needed. Patient requires the Albuterol once every week or two. Encounters Date Type Department Care Team Description 10/30/2024 Patient Msg Neurology [address] [phone] Provider, Ccf call for sooner appointment 10/29/2024 Orders Only [facility] [address] [place], [place] [phone] Suleman Bustos MD Nausea and vomiting, unspecified vomiting type (Primary Dx); Heartburn 10/29/2024 Telephone [facility] [address] [place], [place] [phone] Suleman Bustos MD Flotation Tank Operator - Other (Procedure Follow up) 10/27/2024 Get Medical Advice [facility] [address] [place], [place] [phone] Suleman Bustos MD Low Levels on Blood Work 10/27/2024 Orders Only [facility] [address] [place], [place] [phone] Sandra Landry, MONITOR AND STORAGE BIN TENDER.MEDICAL BILLING SUPERVISOR Pulsatile tinnitus, left ear (Primary Dx) 10/26/2024 7:52 AM EDT Anesthesia Event Admitting [address] [place] [address] Lucian Santos MD Morell, Elizabeth, MONITOR AND STORAGE BIN TENDER.SUPERVISOR LENS GENERATING 10/26/2024 7:30 AM EDT - 10/26/2024 10:40 AM EDT Surgery Admitting [address] [place] [address] Suleman Bustos MD TRANSCATH EMBOLIZATION SECURITY OFFICERS AND GUARDS INTRACRANIAL 10/26/2024 5:48 AM EDT - 10/27/2024 1:09 PM EDT Hospital Encounter [facility] H[address] [place], [place] [phone] Suleman Bustos MD Pulsatile tinnitus, left ear [H93.A2] Discharge Disposition: Home 10/26/2024 Travel 10/25/2024 8:20 AM EDT PAT Pre Anesthesia [address] [place] [address] 6, Pacc Main Pre-operative examination (Primary Dx); Pulsatile tinnitus, left ear; Mild intermittent asthma without complication (HCC); PONV (postoperative nausea and vomiting) 10/25/2024 Patient Msg Pre Anesthesia [address] [phone] Goldy Rosas, MONITOR AND STORAGE BIN TENDER.MEDICAL BILLING SUPERVISOR Pre-operative instructions 10/11/2024 Patient Msg Head and Neck [facility] [address] [place] [address] Provider, Ccf Hearing Aid Benefits Information 10/03/2024 Patient Update [facility] [address] [place] [address] Suleman Bsutos MD pulsatile tinnitus 10/03/2024 Patient Msg [facility] [address] [place] [address] Provider, Ccf Left Jugular Vein Stent Instructions 10/03/2024 Telephone [facility] [address] [place] [address] Suleman Bustos MD Flotation Tank Operator - Other (Jugular Vein Stent) 10/02/2024 9:40 AM EDT [facility] [address] [place] [address] Suleman Bustos MD Pulsatile tinnitus (Primary Dx) 10/02/2024 Orders Only Neurology [address] [place] [address] Suleman Bustos MD Pulsatile tinnitus 09/28/2024 10:27 AM EDT - 09/28/2024 12:32 PM EDT Surgery Angio [address] [place] [address] Suleman Bustos MD NON-SELECTIVE CATH PLACEMENT THORACIC AORTA W/ ANGIOGRAPHY OF THE EXTRACRANIAL CAROTID VERTEBRAL AND/OR INTRACRANIAL VESSELS BILATERAL W/ ANGIOGRAPHY OF THE CERVICOCEREBRAL ARCH 09/28/2024 7:34 AM EDT - 09/28/2024 4:43 PM EDT Hospital Encounter HOSP MAIN [id number] [address] [place], [place] [phone] Suleman Bustos MD Pulsatile tinnitus, left ear [H93.A2] Discharge Disposition: Home 09/28/2024 Travel 09/26/2024 Patient Msg [facility] [address] [place], [place] [phone] Provider, Ccf Diagnostic Cerebral Angiogram 09/24/2024 Patient Update [facility] [address] [place] [address] Suleman Bustos MD 09/24/2024 Telephone [facility] [address] [place], [place] [phone] Suleman Bustos MD Scheduling 09/21/2024 3:15 PM EDT Office Visit Otolaryngology [address] [phone] Terry Kovacs MD Conductive hearing loss of left ear with unrestricted hearing of right ear (Primary Dx) 09/21/2024 7:00 AM EDT Office Visit Audiology [address] [phone] Tabatha Dickey AUD Conductive hearing loss of left ear with unrestricted hearing of right ear (Primary Dx); ETD (Eustachian tube dysfunction), left; Pulsatile tinnitus, left ear; Dizziness; Ear pressure, left 09/21/2024 Patient Msg [facility] [address] [place] [address] Provider, Ccf Procedure-Diagnostic Cerebral Angiogram 09/20/2024 Travel from Last 3 Months Family History Medical History Relation Comments Heart Attack Father Breast Cancer Maternal Grandmother No Known Problems Mother Lung Cancer Paternal Grandmother Relation Status Comments Father Alive Maternal Grandmother Mother Alive Paternal Grandmother Social History Tobacco Use Types Packs/Day Years [...] is lower risk 4 10/02/2024 Data from: https://[email or web address]/. Last address used for calculation [address] [address] 10/02/2024 Comments No Sex and Gender Information Value Date Recorded Sex Assigned at Not on file Legal Sex Female 9:59 AM EDT Gender Identity Not on file Sexual Orientation Not on file Last Filed Vital Signs Vital Sign Reading [...] Mass Index 22.68 10/26/2024 5:40 PM EDT Plan of Treatment Upcoming Encounters Date Type Department Care Team (Latest Contact Info) Description 11/27/2024 8:40 AM EDT [facility] [address] [place] [address] Suleman Bustos MD [address] [place] [address] Dx Hospital DC Post op Est patient 11/27/2024 3:00 PM EDT Appointment Radiology [address] [address] Dx: Pulsatile tinnitus, left ear [H93.A2] 12/03/2024 3:00 PM EDT [facility] [address] [phone] Deon Montemayor, PSYD [address] [place] [phone] new consult for Tinnitus CBT per Dr. Montemayor Health Maintenance Due Date Last Done Comments Hepatitis B Vaccine (2 of 3 - 3-dose series) 09/09/2000 08/12/2000 Annual PCP Team Chronic Dise ase Visit 2013 Anxiety Screening 2013 Depression Screening 2013 HIV Screening 2013 Hepatitis C Screening 2013 DTaP,Tdap,Td Vaccine (4 - Tdap) 2014 07/13/1996, 1995, 1995 Cervical Cancer Screening 2016 Covid-19 Vaccine (2023-2 5 season) 2024 Influenza Vaccine (Season Ended) 2025 Medical Devices Implanted Type Area Assembly Leader Device Identifier Shelf Expiration Date Model / Serial / Lot System Vascade 6/7fr Collagen Compression Bioabsorbable Vascular - [id number] Implanted:Qty: 1 on 09/28/2024 at [facility] Collagen Right: Groin CARDIVA 01/03/2026 [id number] -[id number] / / [id number] Device Vascade 5fr Closure Femoral Artery - [id number] Implanted:Qty: 1 on 09/28/2024 at [facility] Collagen Right: Groin CARDIVA 04/19/2026 [id number] X-[id number] / / [id number] Device Vascade 5fr Closure Femoral Artery - [id number] Implanted:Qty: 1 on 10/26/2024 at [facility] Collagen Left: Artery - Femoral CARDIVA 05/01/2026 [id number] X-[id number] / / [id number] Device Closure Vascade Mvp Multi-Site Femoral Collagen Patch - [id number] Implanted:Qty: 1 on 10/26/2024 at [facility] Collagen Left: Groin CARDIVA 09/03/2026 [id number] -[id number] / / [id number] Prosthesis Eclipse .5mm Nitinol Fluoroplastic 4.25mm Ossicular Shaft Piston - [id number] Implanted:Qty: 1 on 07/06/2024 at [facility] Implant Left: Ear [employer] 07/21/2028 [id number] / / [id number] Stent Zilver 518 9mm 5fr Nitinol 60mm 125cm Vascular Self Expand Flexible - [id number] Implanted:Qty: 1 on 10/26/2024 at [facility] Vascular Stents Left: Head - Cranial COOK PERIPHERAL 05/24/2027 [id number] / / [id number] Procedures Procedure Name Priority Date/Time Associated Diagnosis Comments BASIC METABOLIC PANEL Routine 10/27/2024 5:59 AM EDT COMPLETE BLOOD COUNT Routine 10/27/2024 5:59 AM EDT US GROIN [facility]L [facility]AS LAB Routine 10/26/2024 2:46 PM EDT IR EXTERNAL CAROTID 10/26/2024 1 0:02 AM EDT IR CAROTID CERVICAL 10/26/2024 1 0:02 AM EDT IR NEUROVASCULAR STENT Routine 10:02 AM EDT Pulsatile tinnitus, left ear IR CEREBRAL EMBO INTRACRANIAL Routine 10/26/2024 10:02 AM EDT Pulsatile tinnitus PERIPHERAL IV PLACEMENT Routine 10/26/2024 8:11 AM EDT INTUBATION Routine 10/26/2024 8:05 AM EDT TCAT PERMANENT OCCLUSION/EMBOLIZATION PRQ SECURITY OFFICERS AND GUARDS 10/26/2024 7:48 AM EDT Pulsatile tinnitus, left ear HCG QUAL UR Routine 10/25/2024 11:26 AM EDT Pulsatile tinnitus, left ear CONFIRM BLOOD TYPE Routine 10/25/2024 9: 16 AM EDT Pulsatile tinnitus, left ear TYPE + SCREEN,30 DAY Routine 10/25/2024 9:03 AM EDT Pulsatile tinnitus, left ear ASP/CLOBI RESISTANCE INTERP Routine 10/25/2024 9:03 AM EDT Pulsatile tinnitus, left ear BASIC METABOLIC PANEL Routine 10/25/2024 9:03 AM EDT Pulsatile tinnitus, left ear COMPLETE BLOOD COUNT Routine 10/25/2024 9:03 AM EDT Pulsatile tinnitus, left ear ASPIRIN/CLOPIDOGREL RESISTANCE Routine 10/25/2024 9:03 AM EDT Pulsatile tinnitus, left ear FARRAH WHAT TO EXPECT DURING YOUR HOSPITAL STAY 10/19/2024 IR VERTEBRAL ARTERY 09/28/2024 1 :36 PM EDT IR VERTEBRAL ARTERY 09/28/2024 1 :36 PM EDT IR EXTERNAL CAROTID 09/28/2024 1 :36 PM EDT IR CAROTID CERVICAL 09/28/2024 1 :36 PM EDT IR CAROTID EFFIE 09/28/2024 1:36 PM EDT IR CAROTID EFFIE 09/28/2024 1:36 PM EDT IR CEREBRAL ARCH & THREE VESSEL Routine 09/28/2024 1:36 PM EDT Pulsatile tinnitus, left ear NONSLCTV CATH THOR AORTA ANGIO INTR/XTRCRANL ART 09/28/2024 10:59 AM EDT Pulsatile tinnitus, left ear HCG QUAL UR Routine 09/28/2024 7:26 AM EDT Pulsatile tinnitus, left ear COMPLETE BLOOD COUNT Routine 09/25/2024 1:30 PM EDT Pulsatile tinnitus, left ear BASIC METABOLIC PANEL Routine 09/25/2024 1:30 PM EDT Pulsatile tinnitus, left ear HEARING TEST/AUDIOGRAM Routine 9:09 AM EDT from Last 3 Months Results * (ABNORMAL) COMPLETE BLOOD COUNT (10/27/2024 5:59 AM EDT) Only the most recent of3 resultswithin the time period is included. WBC 12.86(H) 3.70 - 11.00 k/uL 10/27/2024 6:38 AM EDT [facility] RBC 3.91 3.90 - 5.20 m/uL 10/27/2024 6:38 AM EDT [facility] Hemoglobin 12.3 11.5 - 15.5 g/dL 10/27/2024 6:38 AM EDT [facility] Hematocrit 34.7(L) 36.0 - 46.0 % 10/27/2024 6:38 AM EDT [facility] MCV 88.7 80.0 - 100.0 fL 10/27/2024 6:38 AM EDT [facility] MCH 31.5 26.0 - 34.0 pg 10/27/2024 6:38 AM EDT [facility] MCHC 35.4 30.5 - 36.0 g/dL 10/27/2024 6:38 AM EDT [facility] RDW-CV 12.0 11.5 - 15.0 % 10/27/2024 6:38 AM EDT [facility] Platelet Count 180 150 - 400 k/uL 10/27/2024 6:38 AM EDT [facility] MPV 10.6 9.0 - 12.7 fL 10/27/2024 6:38 AM EDT [facility] Absolute nRBC <0.01 <0.01 k/uL 10/27/2024 6:38 AM EDT [facility] Blood BLOOD SPECIMEN / Unknown Venipuncture / Unknown 10/27/2024 5:59 AM EDT 10/27/2024 6:32 AM EDT us Graciela Neal MONITOR AND STORAGE BIN TENDER.MEDICAL BILLING SUPERVISOR LABORATORY Final Resu lt [facility] [address] [facility] Desk [address] [address], * (ABNORMAL) BASIC METABOLIC PANEL (10/27/2024 5:59 AM EDT) Only the most recent of3 resultswithin the time period is included. Glucose 124(H) 74 - 99 mg/dL 10/27/2024 8:50 AM EDT [facility] Comment: The [place] Diabetes Association (ADA) provides guidance for cutoff [...] Standards of Medical Care in Diabetes 2016, [place] [employer] Association. Diabetes Care. 2016.39(Suppl 1). BUN 14 7 - 21 mg/dL 10/27/2024 8:50 AM EDT [facility] Creatinine 0.68 0.58 - 0.96 mg/dL 10/27/2024 8:50 AM EDT [facility] Sodium 137 136 - 144 mmol/L 10/27/2024 8:50 AM EDT [facility] Potassium 4.2 3.7 - 5.1 mmol/L 10/27/2024 8:50 AM EDT [facility] Chloride 106 98 - 107 mmol/L 10/27/2024 8:50 AM EDT [facility] CO2 20(L) 22 - 30 mmol/L 10/27/2024 8:50 AM EDT [facility] Anion Gap 11 8 - 15 mmol/L 10/27/2024 8:50 AM EDT [facility] Calcium, Total 8.5 8.5 - 10.2 mg/dL 10/27/2024 8:50 AM EDT [facility] Estimated Glomerular Filtration Rate 121 >=60 mL/min/1.7 3m 10/27/2024 8:50 AM EDT [facility] Comment:Estimated Glomerular Filtration Rate [...] 10/27/2024 6:32 AM EDT us Graciela Neal MONITOR AND STORAGE BIN TENDER.MEDICAL BILLING SUPERVISOR LABORATORY Final Resu lt [facility] [address] [place] [address], [place] * [facility] GRO[facility] (10/26/2024 2:46 PM EDT) 10/26/2024 2:46 PM EDT N[facility]ative [facility] - 10/26/2024 4:28 PM EDT Non-Invasive Vascular Laboratory [facility] Portable Lower Extremity Arterial Duplex for Pseudoaneurysm [...] origin to proximal . Technologist: Hasmukh Tierney T Ordering physician: SULEMAN BUSTOS Interpreting physician: Sesar Bryant DO Final See Link below for Image us Suleman Bustos MD VASCULAR LAB Final Result Performing Organization Address City/State/[facility] Co de Phone Number [facility] [address] [place] [address] * IR CEREBRAL EMBO INTRACRANIAL (10/26/2024 10:02 AM EDT) Anatomical Region Laterality Modality Other 10/26/2024 10:0 2 AM EDT Impressions 10/30/2024 8:00 PM EDT IMPRESSION: 1. Mild left transverse-sigmoid narrowing with associated turbulent flow as previously documented. 2. Successful transvenous stenting across the stenotic segment, with diminished turbulence. Jose Goldman MD Endovascular Surgical Neuroradiology, Fellow Certified Residential Medication Aide: PSCB Transcribe Date/Time: Oct 28 2024 3:25P Dictated by : JOSE GOLDMAN MD This examination was interpreted and the report reviewed and electronically signed by: SULEMAN BUSTOS MD on Oct 30 2024 7:58PM EST [...] 831 PROCEDURE END TIME: 944 ATTENDING: Suleman Bustos MD MAINSPRING BARREL ASSEMBLY CLEANER (FELLOW): Jose Goldman MD ANGIOGRAPHY MATERIALS: Guidewire: 0.035 inch angled tapered Glidewire Arterial: Diagnostic catheter: 5 Icelandic Vert Catheter catheter Venous: Diagnostic catheter: 5 Icelandic Vert Catheter Guide catheter: 6 Fr x 80 cm Shuttle guide sheath over a 4 Fr Berenstein introducer Intermediate catheter: 0.072 Navien x 105 cm Microcatheter: Balt medium Carrier system Microwire: Norman 18 microwire Stent: [...] the stent without significant flow limitation. Suleman Bustos MD INTERVENTIONAL RADIOLOGY Final Result * IR CAROTID CERVICAL (10/26/2024 10:02 AM EDT) Anatomical Region Laterality Modality Other 10/26/2024 10:0 2 AM EDT Impressions 10/30/2024 8:00 PM EDT IMPRESSION: 1. Mild left transverse-sigmoid narrowing with associated turbulent flow as previously documented. 2. Successful transvenous stenting across the stenotic segment, with diminished turbulence. Jose Goldman MD Endovascular Surgical Neuroradiology, Fellow Certified Residential Medication Aide: GAIL Transcribe Date/Time: Oct 28 2024 3:25P Dictated by : JOSE GOLDMAN MD This examination was interpreted and the report reviewed and electronically signed by: SULEMAN BUSTOS MD on Oct 30 2024 7:58PM EST Narrative 10/30/2024 8:00 PM EDT * * *Final Report* * * DATE OF EXAM: Oct 26 2024 10:02AM NDA 0857 - IR CAROTID CERVICAL / PROCEDURE REASON: H93.A2-Pulsatile tinnitus, left ear * * * * Physician Interpretation * [...] 831 PROCEDURE END TIME: 944 ATTENDING: Suleman Bustos MD MAINSPRING BARREL ASSEMBLY CLEANER (FELLOW): Jose Goldman MD ANGIOGRAPHY MATERIALS: Guidewire: 0.035 inch angled tapered Glidewire Arterial: Diagnostic catheter: 5 Icelandic Vert Catheter catheter Venous: Diagnostic catheter: 5 Icelandic Vert Catheter Guide catheter: 6 Fr x 80 cm Shuttle guide sheath over a 4 Fr Berenstein introducer Intermediate catheter: 0.072 Navien x 105 cm Microcatheter: Balt medium Carrier system Microwire: Norman 18 microwire Stent: [...] of the stent without significant flow limitation. Ish Tomas APRN.[facility] INTERVENTIONAL RADIOLOGY [facility] al Result * IR EXTERNAL CAROTID (10/26/2024 10:02 AM EDT) Anatomical Region Laterality Modality Other 10/26/2024 10:0 2 AM EDT Impressions 10/30/2024 8:00 PM EDT IMPRESSION: 1. Mild left transverse-sigmoid narrowing with associated turbulent flow as previously documented. 2. Successful transvenous stenting across the stenotic segment, with diminished turbulence. Jose Goldman MD Endovascular Surgical Neuroradiology, Fellow Certified Residential Medication Aide: GAIL Transcribe Date/Time: Oct 28 2024 3:25P Dictated by : JOSE GOLDMAN MD This examination was interpreted and the report reviewed and electronically signed by: SULEMAN BUSTOS MD on Oct 30 2024 7:58PM EST Narrative 10/30/2024 8:00 PM EDT * * *Final Report* * * DATE OF EXAM: Oct 26 2024 10:02AM NDA 6524 - IR VENOGRAPHY ORBITAL / PROCEDURE REASON: H93.A2-Pulsatile tinnitus, left ear * * * * Physician Interpretation * [...] 831 PROCEDURE END TIME: 944 ATTENDING: Suleman Bustos MD MAINSPRING BARREL ASSEMBLY CLEANER (FELLOW): Jose Goldman MD ANGIOGRAPHY MATERIALS: Guidewire: 0.035 inch angled tapered Glidewire Arterial: Diagnostic catheter: 5 Icelandic Vert Catheter catheter Venous: Diagnostic catheter: 5 Icelandic Vert Catheter Guide catheter: 6 Fr x 80 cm Shuttle guide sheath over a 4 Fr Berenstein introducer Intermediate catheter: 0.072 Navien x 105 cm Microcatheter: Balt medium Carrier system Microwire: Norman 18 microwire Stent: [...] of the stent without significant flow limitation. us Everardo LAFLEUR.MEDICAL BILLING SUPERVISOR INTERVENTIONAL RADIOLOGY [facility] al Result * IR NEUROVASCULAR STENT (10/26/2024 10:02 AM EDT) Anatomical Region Laterality Modality Other 10/26/2024 10:0 2 AM EDT Impressions 10/30/2024 8:00 PM EDT IMPRESSION: 1. Mild left transverse-sigmoid narrowing with associated turbulent flow as previously documented. 2. Successful transvenous stenting across the stenotic segment, with diminished turbulence. Jose Goldman MD Endovascular Surgical Neuroradiology, Fellow Certified Residential Medication Aide: PSCB Transcribe Date/Time: Oct 28 2024 3:25P Dictated by : JOSE GOLDMAN MD This examination was interpreted and the report reviewed and electronically signed by: SULEMAN BUSTOS MD on Oct 30 2024 7:58PM EST Narrative 10/30/2024 8:00 PM EDT * * *Final Report* * * DATE OF EXAM: Oct 26 2024 10:02AM [facility] 0780 - IR NEUROVASCULAR STENT / PROCEDURE REASON: H93.A2-Pulsatile tinnitus, left ear * * * * Physician Interpretation * [...] 831 PROCEDURE END TIME: 944 ATTENDING: Suleman Bustos MD MAINSPRING BARREL ASSEMBLY CLEANER (FELLOW): Jose Goldman MD ANGIOGRAPHY MATERIALS: Guidewire: 0.035 inch angled tapered Glidewire Arterial: Diagnostic catheter: 5 Icelandic Vert Catheter catheter Venous: Diagnostic catheter: 5 Icelandic Vert Catheter Guide catheter: 6 Fr x 80 cm Shuttle guide sheath over a 4 Fr Berenstein introducer Intermediate catheter: 0.072 Navien x 105 cm Microcatheter: Balt medium Carrier system Microwire: Norman 18 microwire Stent: [...] of the stent without significant flow limitation. us Everardo LAFLEUR.[facility] INTERVENTIONAL RADIOLOGY Thien al Result * PERIPHERAL IV PLACEMENT (10/26/2024 8:11 AM EDT) Lucian De Jesus MD - 10/26/2024 8:11 AM EDT Lucian Santos MD 10/26/2024 8:11 AM PIV General Information Procedure Start Time/Medication Administration: 10/26/2024 8:11 AM Procedure End Time: 10/26/2024 8:11 AM Staffing Anesthesiologist: Lucian Santos MD SUPERVISOR LENS GENERATING: Birdie Benitez APRN.SUPERVISOR LENS GENERATING Performed by: SUPERVISOR LENS GENERATING Preparation Sterility Preparation: hand hygiene performed prior [...] procedure: OR Staffing Anesthesiologist: Lucian Santos MD SUPERVISOR LENS GENERATING: Birdie Benitez APRN.SUPERVISOR LENS GENERATING Performed by: SUPERVISOR LENS GENERATING Indications and Patient Condition Indications for airway management: anesthesia Preoxygenated: yes anesthesia circuit Method: sleep Difficult Mask: No Final Airway Details Final airway type: endotracheal airway Final Endotracheal Airway: ETT Cuffed: yes Successful intubation technique: video laryngoscopy Devices used: Tapioca Mobile Endotracheal tube insertion site: oral Blade: Vinay Blade size: #3 ETT size (mm): 7.0 Measured from: lips Measurement (cm): 22 Placement verified by: capnometry Cormack-Lehane Classification: grade I - full view of glottis Number of attempts at approach: 1 Airway not difficult Lucian Santos MD ANESTHESIA ORDERABLES Final Re sult * HCG, QUALITATIVE, URINE (10/25/2024 11:26 AM EDT) Only the most recent of2 resultswithin the time period is included. HCG Qualitative, Urine Negative Negative 10/25/2024 1:20 PM EDT [facility] Comment:This test is intende d to aid in the early detection of . Very dilute urine samples, as indicated by a low specific gravity, may not contain patient portal representative levels of hCG. This test detects intact hCG only. This test does not reliably detect hCG degradation products, including free-beta subunit and beta-core fragment. Therefore, this test may show reduced reactivity in urine after 8 weeks gestation. A number of conditions other than , including trophoblastic disease and certain non-trophoblastic neoplasms cause elevated levels of hCG. As with any assay employing mouse antibodies, the possibility exists for interference by human anti-mouse antibodies (HAMA) in the specimen. The test provides a presumptive diagnosis for . Urine URINE SPECIMEN / Unknown Non Blood / Unknown 10/25/2024 11:26 AM EDT 10/25/2024 11:26 AM EDT [place] [employer] AND ST[employer]AGE BIN TENDER.[facility] Final Result Performing Organization Address City/[facility] Co de Phone Number [facility] [address] [place] [address], * CONFIRM BLOOD TYPE (10/25/2024 9:16 AM EDT) ABO B 10/25/2024 1:49 PM EDT [facility] Rh(D) Positive 10/25/2024 1:49 PM EDT [facility] Blood BLOOD SPECIMEN / Unknown Venipuncture / Unknown 10/25/2024 9:16 AM EDT 10/25/2024 9:16 AM EDT [place] [employer]AGE BIN TENDER.[facility] Final Result Performing Organization Address [facility] Co de Phone Number [facility] [address] [place] [address], * (ABNORMAL) ASPIRIN/CLOPIDOGREL RESISTANCE (10/25/2024 9:03 AM EDT) ADP 5 uM Max Aggregation 32(L) 65 - 93 % Max 10/25/2024 7:35 PM EDT [facility] Arachidonic Acid Max Aggregation 10(L) 75 - 100 % Max 10/25/2024 7:35 PM EDT [facility] Blood BLOOD SPECIMEN / Unknown Venipuncture / Unknown 10/25/2024 9:03 AM EDT 10/25/2024 9:03 AM EDT [place] [employer] BIN TENDER.[facility] Final Result Performing Organization Address City/[facility] Co de Phone Number [facility] [address] [facility] [address], [place] * TYPE AND SCREEN,30 DAY (10/25/2024 9:03 AM EDT) Pathologist [facility] ABO B 10/25/2024 3:41 PM EDT MAIN BLOOD BANK Rh(D) Positive 10/25/2024 3:41 PM EDT MAIN BLOOD BANK Antibody Screen Negative 10/25/2024 3:41 PM EDT [facility] Blood BLOOD SPECIMEN / Unknown Venipuncture / Unknown 10/25/2024 9:03 AM EDT 10/25/2024 9:03 AM EDT [place] [employer] BIN TENDER.[facility] Final Result Performing Organization Address [facility] Phone Number [facility] [address] [place] [address], [place] * ASP/CLOBI RESISTANCE INTERP (10/25/2024 9:03 AM EDT) Pathologist [facility] Interpretation (Aspirin/Clopi dogrel Resistance) Abnormal - see comment below. The aggregation results indicate a therapeutic response to aspirin. If the patient is on aspirin therapy, the degree of platelet inhibition indicates aspirin responsiveness because the arachidonic acid aggregation is <20 percent and the ADP aggregation is <70 percent. These parameters were developed at the [facility] utilizing the assay and reagents performed on this patient's platelets. Geronimo WHEATLEY. Bharath WHEATLEY. Nely BARAKAT. A prospective, blinded determination of the natural history of aspirin resistance among stable patients with cardiovascular disease. Journal of the [place] [employer]. 41(6):961-5, 2002. There is a decrease in ADP-induced platelet aggregation. Guidelines for optimal platelet inhibition during clopidogrel therapy have not been well-established. However, if the patient is currently receiving clopidogrel therapy, the results suggest clopidogrel response. No prior aspirin/clopidogr el results are available for comparison with the current study. The medication record indicates therapy with aspirin at 325 mg/day plus clopidogrel at 75 mg/day. 10/25/2024 4:50 PM EDT [facility] Plt Aggreg Pathologist Interp Reviewed by Sunita Street M.D., Ph.D 10/25/2024 4:50 PM EDT [facility] Blood BLOOD SPECIMEN / Unknown Venipuncture / Unknown 10/25/2024 9:03 AM EDT 10/25/2024 9:03 AM EDT Ish Tomas MONITOR AND STORAGE BIN TENDER.[employer]ICAL [employer]ILLING [employer]PER[employer] LABORATORY Final Result Performing Organization Address [facility]/ZIP Co de Phone Number [facility] [address] [place] [address], * [facility] WHAT TO EXPECT DURING YOUR HOSPITAL STAY (10/19/2024) 10/19/2024 Narrative FARRA[facility] - 10/27/2024 Provider LOIDA your patient TRACY MCKOY started their Farrah program on 2024-10-19 but has NOT completed their Farrah program, time has . Farrah program: WELCOME SAFETY PATIENT VIDEO Suleman Bustos MD [facility] Final Result Performing Organization Address [facility] Co de Phone Number [facility] * IR CAROTID CERVICAL (09/28/2024 1:36 PM EDT) Anatomical Region Laterality Modality Other 09/28/2024 1:36 PM EDT Impressions 10/01/2024 11:58 AM EDT IMPRESSION: 1. No arteriovenous shunting to explain the patient's left-sided pulsatile tinnitus. 2. Mild left-sided transverse-sigmoid sinus narrowing measuring less than 50%. 3. Moderate decrease in pulsatile tinnitus severity during left transverse-sigmoid sinus balloon inflation. 4. Modest decrease in pulsatile tinnitus severity during left jugular bulb balloon inflation. Bradford Carver MD Fellow, Endovascular Surgical Neuroradiology Certified Residential Medication Aide: [email or web address] Transcribe Date/Time: Oct 01 2024 6:27A Dictated by : BRADFORD CARVER MD This examination was interpreted and the report reviewed and electronically signed by: SULEMAN BUSTOS MD on Oct 01 2024 11:56AM EST Narrative 10/01/2024 11:58 AM EDT * * *Final Report* * * DATE OF EXAM: Sep 28 2024 1:36PM NDA [id number] - IR CAROTID NECK EFFIE / PROCEDURE REASON: Pulsatile tinnitus, left ear * * * * Physician Interpretation * * * * Endovascular Surgical Neuroradiology Report CLINICAL HISTORY: This patient is a 29 years-old Female who presented with left sided pulsatile tinnitus. A diagnostic cervicocerebral angiogram and test balloon occlusion were requested to evaluate the cerebral vasculature for surgical planning. PROCEDURE: 1. Ultrasound-guided right femoral artery and right femoral vein access. 2. Diagnostic cervicocerebral angiogram. 3. Test balloon occlusion of the left transverse sinus and jugular vein. 4. Follow up cerebral angiogram 5. Closure device - 5F Vascade (artery) and 6/7 Vascade (vein) INFORMED CONSENT: The procedural risks, benefits, alternatives and complications were discussed with the patient. All questions were answered and they requested that we proceed. PRE-PROCEDURAL DIAGNOSIS: pulsatile tinnitus POST-PROCEDURAL DIAGNOSIS: Same. TIME OUT TIME: 11:55 PROCEDURE START TIME: 12:00 PROCEDURE END TIME: 13:04 ATTENDING: Suleman Bustos MD [employer]SEM[employer] CLEANER (FELLOW): Bradford Carver MD The procedure was performed by the attending, with an registered sales assistant. ANESTHESIA: No sedation was given. Pulsed oximetry, cardiopulmonary monitoring and electrocardiography was performed throughout the procedure by the anesthesiology team. ANGIOGRAPHY MATERIALS: Diagnostic catheter: 5 Fr Angled Taper GlideCath catheter Guidewire: 0.035 angled-tapered Glidewire. Guide catheter: 6 Fr Envoy catheter Balloon: 7 mm x 7 mm Transform balloon delivery microcatheter Transend 0.014 Fluoroscopic Radiation Summary: Plane A, Air Kerma: 749.5 mGy Plane B, Air Kerma: 218.2 mGy Dose Area Product (DAP): [id number] uGym2 Fluoro time: 21:24 min:sec arterial: 185 ml of OMNIPAQUE 300 TECHNIQUE: After discussion of the risks and benefits of diagnostic cerebral angiography, informed consent was obtained. The patient was brought to the angiography suite and placed in supine position. The right groin areas were prepped and draped in the usual standard fashion. After fluoroscopic localization of the right femoral head, the right common femoral artery was visualized with ultrasound. Right common femoral artery: normal and patent. The right common femoral artery was found to be sufficient for transfemoral access. A permanent image of the artery was archived. 1% lidocaine was administered for local anesthesia. Vascular access was then obtained in the right common femoral artery utilizing a standard 4 Fr micropuncture set, under direct ultrasound visualization. A 5 Fr sheath was inserted in the right femoral artery, which was subsequently flushed. Then attention was turned toward venous access. After fluoroscopic localization of the right femoral head, the right common femoral vein was visualized with ultrasound. Right common femoral vein: Normal and patent. The right common femoral vein was found to be sufficient for transfemoral access. A permanent image of the vein was archived. 1% lidocaine was administered for local anesthesia. Vascular access was then obtained in the right common femoral vein utilizing a standard 4 Icelandic micropuncture set, under direct ultrasound visualization. A 6 Icelandic sheath was inserted in the right common femoral vein, which was subsequently flushed. Baseline and serial ACTs were obtained, and intermittent boluses of intravenous heparin were administered to maintain an appropriate and therapeutic level of anticoagulation throughout the procedure. Through the right femoral arterial sheath, a 5 Fr Angled Taper GlideCath catheter and wire were then fluoroscopically advanced for selective catheterization of the following vessels: Brachiocephalic vascular family: Right common carotid artery, cervical views. Right internal carotid artery, intracranial views. Standard AP and lateral views. Right external carotid artery, cranial views. Right vertebral artery, intracranial views. Standard AP and lateral views. Left carotid vascular family: Left common carotid artery, cervical views. Left internal carotid artery, intracranial views. Standard AP and lateral views. Left external carotid artery, cranial views. Left subclavian vascular family: Left vertebral artery, intracranial views. Standard AP and lateral views. Additionally, in conjunction with the glide wire, a 6 Icelandic Envoy catheter was utilized to select the left jugular bulb, from which venographic injections were performed. Left internal jugular vein, AP and lateral views. COMPLICATIONS: There were no observed complications during the procedure or in the immediate post-operative period. FINDINGS: RIGHT COMMON CAROTID ARTERY INJECTION (cervical): DSA images of the right anterior cervical circulation demonstrate normal course and caliber of the distal common carotid artery. There is no significant atherosclerosis at the carotid bifurcation. The cervical ICA has normal course and caliber. The proximal ECA and its branches demonstrate a normal course and caliber. There is no evidence of dissection or dural AV fistula. RIGHT INTERNAL CAROTID ARTERY INJECTION (cranial): DSA images of the right anterior intracranial circulation demonstrate normal course and caliber of the petrous, cavernous and supraclinoid segments of the internal carotid artery. The ophthalmic artery origin, course and caliber are normal. There is a moderate sized PCOMM artery that contributes to the posterior circulation. The anterior choroidal artery is normal. The right M1 segment and corresponding MCA distribution are normal. The right A1 segment is hypoplastic. The right HAO distribution is faintly visualized. There is no filling across the anterior communicating artery to the contralateral HAO. Capillary and venous phases are normal. No aneurysm or arteriovenous malformation is identified. The right transverse sigmoid sinus system is dominant. RIGHT EXTERNAL CAROTID ARTERY (cranial): The external carotid artery course, caliber and terminal branches are normal. No arteriovenous malformation or arteriovenous fistula is identified. LEFT COMMON CAROTID ARTERY INJECTION (cervical): DSA images of the left anterior cervical circulation demonstrate normal course and caliber of the distal common carotid artery. There is no significant atherosclerosis at the carotid bifurcation. The cervical ICA has normal course and caliber. The proximal ECA and its branches demonstrate a normal course and caliber. There is no evidence of dissection or dural AV fistula. LEFT INTERNAL CAROTID ARTERY INJECTION (cranial): DSA images of the left anterior intracranial circulation demonstrate normal course and caliber of the petrous, cavernous and supraclinoid segments of the internal carotid artery. The ophthalmic artery origin, course and caliber are normal. There is a small PCOMM artery without significant contribution to the posterior circulation. The anterior choroidal artery is normal. M1 and A1 segments are normal. MCA and HAO distributions are normal. There is robust filling across the anterior communicating artery to the contralateral HAO. Capillary and venous phases are normal. No aneurysm or arteriovenous malformation is identified. The left transverse sigmoid sinus system is nondominant. There is mild narrowing of the left transverse-sigmoid sinus junction which is less than 50%. LEFT EXTERNAL CAROTID ARTERY (cranial): The external carotid artery course, caliber and terminal branches are normal. No arteriovenous malformation or arteriovenous fistula is identified. RIGHT VERTEBRAL ARTERY INJECTION: DSA images of the posterior intracranial circulation demonstrate normal course and caliber of the distal right vertebral artery. The vertebrobasilar confluence is normal. There is no reflux of contrast down the left vertebral artery. The basilar segment and apex are normal. The right posterior-inferior cerebellar artery is normal. Bilateral anterior-inferior cerebellar arteries are normal. Bilateral superior cerebellar arteries are normal. Bilateral posterior cerebral arteries are normal. The capillary and venous phases are normal. No aneurysm or arteriovenous shunting is identified. LEFT VERTEBRAL ARTERY INJECTION: DSA images of the posterior intracranial circulation demonstrate normal course and caliber of the distal left vertebral artery. The vertebrobasilar confluence is normal. There is no reflux of contrast down the left vertebral artery. The basilar segment and apex are normal. The left PICA is normal. Bilateral anterior-inferior cerebellar arteries are normal. Bilateral superior cerebellar arteries are normal. Bilateral posterior cerebral arteries are normal. The capillary and venous phases are normal. No aneurysm or arteriovenous shunting is identified. LEFT INTERNAL JUGULAR VEIN: DSA images demonstrate mild narrowing of the left transverse-sigmoid sinus junction. Otherwise the left-sided jugular venous system appears normal. BASED ON THE ABOVE FINDINGS, THE FOLLOWING INTERVENTION WAS PERFORMED: PROCEDURE: The 5 Icelandic angled Taper Glidecath catheter was maintained in position in the left common carotid artery and connected to continuous heparinized saline infusion. A 6 Icelandic Envoy catheter was maintained in the left jugular bulb and also connected to continuous heparinized saline infusion. The 0.014 transcend microwire and 7mm Transform balloon were advanced to the proximal left transverse sinus. At this point functional testing was performed. The patient's head was turned to the right and the left side of the neck was compressed. Pulsatile tinnitus severity was largely unchanged with left neck compression. Angiographic injections were performed from the left common carotid artery as follows. LEFT COMMON CAROTID ARTERY INJECTION: Severely motion limited DSA images of the left anterior intracranial circulation remain unchanged compared to the prior angiographic images. The left jugular venous system appears patent with a left neck compression, although venous phase images are severely motion degraded. At this point test balloon occlusion of the left-sided jugular venous system was attempted. The Transform balloon was inflated to nominal pressure in the left transverse-sigmoid sinus junction. Prior to balloon inflation, the patient's left-sided tinnitus was rated to be an 8 out of 10. Following balloon inflation to nominal pressure, the patient rated the left-sided pulsatile tinnitus to be a 3 out of 10 in severity. Angiographic injection was performed from the left common carotid artery with the balloon inflated at nominal pressure. LEFT COMMON CAROTID ARTERY INJECTION (left transverse sinus balloon inflation): DSA images of the left anterior circulation remain unchanged compared to the preintervention angiographic findings. Flow through the left jugular venous system is significantly decreased, but not completely occluded. The balloon was subsequently deflated and then reinflated in the left jugular bulb. The transformed balloon was inflated to nominal pressure in the left jugular bulb. With balloon inflation in the left jugular bulb, pulsatile tinnitus had a modest decrease in intensity but not as much as that experienced during left-sided jugular bulb balloon inflation. LEFT COMMON CAROTID ARTERY INJECTION (left jugular bulb balloon inflation): DSA images of the left anterior circulation remain unchanged compared to the preintervention angiographic findings. Flow through the left jugular venous system is significantly decreased, but not completely occluded. After final angiographic images were obtained, the diagnostic and guide catheters were removed from the body. Angiography of the access site was performed through the right femoral sheath. RIGHT COMMON FEMORAL ARTERY: DSA images demonstrate normal course and caliber of the right common femoral artery. The sheath is in place above the bifurcation and below the inferior epigastric artery. There is no evidence of dissection or pseudoaneurysm. Kala Joseph PA-C INTERVENTIONAL RADIOLOGY Fi nal Result * IR EXTERNAL CAROTID (09/28/2024 1:36 PM EDT) Anatomical Region Laterality Modality Other 09/28/2024 1:36 PM EDT Impressions 10/01/2024 11:58 AM EDT IMPRESSION: 1. No arteriovenous shunting to explain the patient's left-sided pulsatile tinnitus. 2. Mild left-sided transverse-sigmoid sinus narrowing measuring less than 50%. 3. Moderate decrease in pulsatile tinnitus severity during left transverse-sigmoid sinus balloon inflation. 4. Modest decrease in pulsatile tinnitus severity during left jugular bulb balloon inflation. Bradford Carver MD Fellow, Endovascular Surgical Neuroradiology Certified Residential Medication Aide: GAIL Transcribe Date/Time: Oct 01 2024 6:27A Dictated by : BRADFORD CARVER MD This examination was interpreted and the report reviewed and electronically signed by: SULEMAN BUSTOS MD on Oct 01 2024 11:56AM EST Narrative 10/01/2024 11:58 AM EDT * * *Final Report* * * DATE OF EXAM: Sep 28 2024 1:36PM CHANG [id number] - IR EXT CAROTID EFFIE CEREBRAL / PROCEDURE REASON: Pulsatile tinnitus, left ear * * * * Physician Interpretation * * * * Endovascular Surgical Neuroradiology Report CLINICAL HISTORY: This patient is a 29 years-old Female who presented with left sided pulsatile tinnitus. A diagnostic cervicocerebral angiogram and test balloon occlusion were requested to evaluate the cerebral vasculature for surgical planning. PROCEDURE: 1. Ultrasound-guided right femoral artery and right femoral vein access. 2. Diagnostic cervicocerebral angiogram. 3. Test balloon occlusion of the left transverse sinus and jugular vein. 4. Follow up cerebral angiogram 5. Closure device - 5F Vascade (artery) and 6/7 Vascade (vein) INFORMED CONSENT: The procedural risks, benefits, alternatives and complications were discussed with the patient. All questions were answered and they requested that we proceed. PRE-PROCEDURAL DIAGNOSIS: pulsatile tinnitus POST-PROCEDURAL DIAGNOSIS: Same. TIME OUT TIME: 11:55 PROCEDURE START TIME: 12:00 PROCEDURE END TIME: 13:04 ATTENDING: Suleman Bustos MD [employer] ASSEMBLY CLEANER (FELLOW): Bradford Carver MD The procedure was performed by the attending, with an registered sales assistant. ANESTHESIA: No sedation was given. Pulsed oximetry, cardiopulmonary monitoring and electrocardiography was performed throughout the procedure by the anesthesiology team. ANGIOGRAPHY MATERIALS: Diagnostic catheter: 5 Fr Angled Taper GlideCath catheter Guidewire: 0.035 angled-tapered Glidewire. Guide catheter: 6 Fr Envoy catheter Balloon: 7 mm x 7 mm Transform balloon delivery microcatheter Transend 0.014 Fluoroscopic Radiation Summary: Plane A, Air Kerma: 749.5 mGy Plane B, Air Kerma: 218.2 mGy Dose Area Product (DAP): 65497 uGym2 Fluoro time: 21:24 min:sec arterial: 185 ml of OMNIPAQUE 300 TECHNIQUE: After discussion of the risks and benefits of diagnostic cerebral angiography, informed consent was obtained. The patient was brought to the angiography suite and placed in supine position. The right groin areas were prepped and draped in the usual standard fashion. After fluoroscopic localization of the right femoral head, the right common femoral artery was visualized with ultrasound. Right common femoral artery: normal and patent. The right common femoral artery was found to be sufficient for transfemoral access. A permanent image of the artery was archived. 1% lidocaine was administered for local anesthesia. Vascular access was then obtained in the right common femoral artery utilizing a standard 4 Fr micropuncture set, under direct ultrasound visualization. A 5 Fr sheath was inserted in the right femoral artery, which was subsequently flushed. Then attention was turned toward venous access. After fluoroscopic localization of the right femoral head, the right common femoral vein was visualized with ultrasound. Right common femoral vein: Normal and patent. The right common femoral vein was found to be sufficient for transfemoral access. A permanent image of the vein was archived. 1% lidocaine was administered for local anesthesia. Vascular access was then obtained in the right common femoral vein utilizing a standard 4 Icelandic micropuncture set, under direct ultrasound visualization. A 6 Icelandic sheath was inserted in the right common femoral vein, which was subsequently flushed. Baseline and serial ACTs were obtained, and intermittent boluses of intravenous heparin were administered to maintain an appropriate and therapeutic level of anticoagulation throughout the procedure. Through the right femoral arterial sheath, a 5 Fr Angled Taper GlideCath catheter and wire were then fluoroscopically advanced for selective catheterization of the following vessels: Brachiocephalic vascular family: Right common carotid artery, cervical views. Right internal carotid artery, intracranial views. Standard AP and lateral views. Right external carotid artery, cranial views. Right vertebral artery, intracranial views. Standard AP and lateral views. Left carotid vascular family: Left common carotid artery, cervical views. Left internal carotid artery, intracranial views. Standard AP and lateral views. Left external carotid artery, cranial views. Left subclavian vascular family: Left vertebral artery, intracranial views. Standard AP and lateral views. Additionally, in conjunction with the glide wire, a 6 Icelandic Envoy catheter was utilized to select the left jugular bulb, from which venographic injections were performed. Left internal jugular vein, AP and lateral views. COMPLICATIONS: There were no observed complications during the procedure or in the immediate post-operative period. FINDINGS: RIGHT COMMON CAROTID ARTERY INJECTION (cervical): DSA images of the right anterior cervical circulation demonstrate normal course and caliber of the distal common carotid artery. There is no significant atherosclerosis at the carotid bifurcation. The cervical ICA has normal course and caliber. The proximal ECA and its branches demonstrate a normal course and caliber. There is no evidence of dissection or dural AV fistula. RIGHT INTERNAL CAROTID ARTERY INJECTION (cranial): DSA images of the right anterior intracranial circulation demonstrate normal course and caliber of the petrous, cavernous and supraclinoid segments of the internal carotid artery. The ophthalmic artery origin, course and caliber are normal. There is a moderate sized PCOMM artery that contributes to the posterior circulation. The anterior choroidal artery is normal. The right M1 segment and corresponding MCA distribution are normal. The right A1 segment is hypoplastic. The right HAO distribution is faintly visualized. There is no filling across the anterior communicating artery to the contralateral HAO. Capillary and venous phases are normal. No aneurysm or arteriovenous malformation is identified. The right transverse sigmoid sinus system is dominant. RIGHT EXTERNAL CAROTID ARTERY (cranial): The external carotid artery course, caliber and terminal branches are normal. No arteriovenous malformation or arteriovenous fistula is identified. LEFT COMMON CAROTID ARTERY INJECTION (cervical): DSA images of the left anterior cervical circulation demonstrate normal course and caliber of the distal common carotid artery. There is no significant atherosclerosis at the carotid bifurcation. The cervical ICA has normal course and caliber. The proximal ECA and its branches demonstrate a normal course and caliber. There is no evidence of dissection or dural AV fistula. LEFT INTERNAL CAROTID ARTERY INJECTION (cranial): DSA images of the left anterior intracranial circulation demonstrate normal course and caliber of the petrous, cavernous and supraclinoid segments of the internal carotid artery. The ophthalmic artery origin, course and caliber are normal. There is a small PCOMM artery without significant contribution to the posterior circulation. The anterior choroidal artery is normal. M1 and A1 segments are normal. MCA and HAO distributions are normal. There is robust filling across the anterior communicating artery to the contralateral HAO. Capillary and venous phases are normal. No aneurysm or arteriovenous malformation is identified. The left transverse sigmoid sinus system is nondominant. There is mild narrowing of the left transverse-sigmoid sinus junction which is less than 50%. LEFT EXTERNAL CAROTID ARTERY (cranial): The external carotid artery course, caliber and terminal branches are normal. No arteriovenous malformation or arteriovenous fistula is identified. RIGHT VERTEBRAL ARTERY INJECTION: DSA images of the posterior intracranial circulation demonstrate normal course and caliber of the distal right vertebral artery. The vertebrobasilar confluence is normal. There is no reflux of contrast down the left vertebral artery. The basilar segment and apex are normal. The right posterior-inferior cerebellar artery is normal. Bilateral anterior-inferior cerebellar arteries are normal. Bilateral superior cerebellar arteries are normal. Bilateral posterior cerebral arteries are normal. The capillary and venous phases are normal. No aneurysm or arteriovenous shunting is identified. LEFT VERTEBRAL ARTERY INJECTION: DSA images of the posterior intracranial circulation demonstrate normal course and caliber of the distal left vertebral artery. The vertebrobasilar confluence is normal. There is no reflux of contrast down the left vertebral artery. The basilar segment and apex are normal. The left PICA is normal. Bilateral anterior-inferior cerebellar arteries are normal. Bilateral superior cerebellar arteries are normal. Bilateral posterior cerebral arteries are normal. The capillary and venous phases are normal. No aneurysm or arteriovenous shunting is identified. LEFT INTERNAL JUGULAR VEIN: DSA images demonstrate mild narrowing of the left transverse-sigmoid sinus junction. Otherwise the left-sided jugular venous system appears normal. BASED ON THE ABOVE FINDINGS, THE FOLLOWING INTERVENTION WAS PERFORMED: PROCEDURE: The 5 Icelandic angled Taper Glidecath catheter was maintained in position in the left common carotid artery and connected to continuous heparinized saline infusion. A 6 Icelandic Envoy catheter was maintained in the left jugular bulb and also connected to continuous heparinized saline infusion. The 0.014 transcend microwire and 7mm Transform balloon were advanced to the proximal left transverse sinus. At this point functional testing was performed. The patient's head was turned to the right and the left side of the neck was compressed. Pulsatile tinnitus severity was largely unchanged with left neck compression. Angiographic injections were performed from the left common carotid artery as follows. LEFT COMMON CAROTID ARTERY INJECTION: Severely motion limited DSA images of the left anterior intracranial circulation remain unchanged compared to the prior angiographic images. The left jugular venous system appears patent with a left neck compression, although venous phase images are severely motion degraded. At this point test balloon occlusion of the left-sided jugular venous system was attempted. The Transform balloon was inflated to nominal pressure in the left transverse-sigmoid sinus junction. Prior to balloon inflation, the patient's left-sided tinnitus was rated to be an 8 out of 10. Following balloon inflation to nominal pressure, the patient rated the left-sided pulsatile tinnitus to be a 3 out of 10 in severity. Angiographic injection was performed from the left common carotid artery with the balloon inflated at nominal pressure. LEFT COMMON CAROTID ARTERY INJECTION (left transverse sinus balloon inflation): DSA images of the left anterior circulation remain unchanged compared to the preintervention angiographic findings. Flow through the left jugular venous system is significantly decreased, but not completely occluded. The balloon was subsequently deflated and then reinflated in the left jugular bulb. The transformed balloon was inflated to nominal pressure in the left jugular bulb. With balloon inflation in the left jugular bulb, pulsatile tinnitus had a modest decrease in intensity but not as much as that experienced during left-sided jugular bulb balloon inflation. LEFT COMMON CAROTID ARTERY INJECTION (left jugular bulb balloon inflation): DSA images of the left anterior circulation remain unchanged compared to the preintervention angiographic findings. Flow through the left jugular venous system is significantly decreased, but not completely occluded. After final angiographic images were obtained, the diagnostic and guide catheters were removed from the body. Angiography of the access site was performed through the right femoral sheath. RIGHT COMMON FEMORAL ARTERY: DSA images demonstrate normal course and caliber of the right common femoral artery. The sheath is in place above the bifurcation and below the inferior epigastric artery. There is no evidence of dissection or pseudoaneurysm. Kala Joseph PA-C INTERVENTIONAL RADIOLOGY Fi nal Result * IR VERTEBRAL ARTERY (09/28/2024 1:36 PM EDT) Anatomical Region Laterality Modality Other 09/28/2024 1:36 PM EDT Impressions 10/01/2024 11:58 AM EDT IMPRESSION: 1. No arteriovenous shunting to explain the patient's left-sided pulsatile tinnitus. 2. Mild left-sided transverse-sigmoid sinus narrowing measuring less than 50%. 3. Moderate decrease in pulsatile tinnitus severity during left transverse-sigmoid sinus balloon inflation. 4. Modest decrease in pulsatile tinnitus severity during left jugular bulb balloon inflation. Bradford Carver MD Fellow, Endovascular Surgical Neuroradiology Certified Residential Medication Aide: GAIL Transcribe Date/Time: Oct 01 2024 6:27A Dictated by : BRADFORD CARVER MD This examination was interpreted and the report reviewed and electronically signed by: SULEMAN BUSTOS MD on Oct 01 2024 11:56AM EST Narrative 10/01/2024 11:58 AM EDT * * *Final Report* * * DATE OF EXAM: Sep 28 2024 1:36PM NDA 0821 - IR VERTEBRAL ARTERY / PROCEDURE REASON: Pulsatile tinnitus, left ear * * * * Physician Interpretation * * * * Endovascular Surgical Neuroradiology Report CLINICAL HISTORY: This patient is a 29 years-old Female who presented with left sided pulsatile tinnitus. A diagnostic cervicocerebral angiogram and test balloon occlusion were requested to evaluate the cerebral vasculature for surgical planning. PROCEDURE: 1. Ultrasound-guided right femoral artery and right femoral vein access. 2. Diagnostic cervicocerebral angiogram. 3. Test balloon occlusion of the left transverse sinus and jugular vein. 4. Follow up cerebral angiogram 5. Closure device - 5F Vascade (artery) and 6/7 Vascade (vein) INFORMED CONSENT: The procedural risks, benefits, alternatives and complications were discussed with the patient. All questions were answered and they requested that we proceed. PRE-PROCEDURAL DIAGNOSIS: pulsatile tinnitus POST-PROCEDURAL DIAGNOSIS: Same. TIME OUT TIME: 11:55 PROCEDURE START TIME: 12:00 PROCEDURE END TIME: 13:04 ATTENDING: Suleman Bustos MD [employer] (FELLOW): Bradford Carver MD The procedure was performed by the attending, with an registered sales assistant. ANESTHESIA: No sedation was given. Pulsed oximetry, cardiopulmonary monitoring and electrocardiography was performed throughout the procedure by the anesthesiology team. ANGIOGRAPHY MATERIALS: Diagnostic catheter: 5 Fr Angled Taper GlideCath catheter Guidewire: 0.035 angled-tapered Glidewire. Guide catheter: 6 Fr Envoy catheter Balloon: 7 mm x 7 mm Transform balloon delivery microcatheter Transend 0.014 Fluoroscopic Radiation Summary: Plane A, Air Kerma: 749.5 mGy Plane B, Air Kerma: 218.2 mGy Dose Area Product (DAP): [id number] uGym2 Fluoro time: 21:24 min:sec arterial: 185 ml of OMNIPAQUE 300 TECHNIQUE: After discussion of the risks and benefits of diagnostic cerebral angiography, informed consent was obtained. The patient was brought to the angiography suite and placed in supine position. The right groin areas were prepped and draped in the usual standard fashion. After fluoroscopic localization of the right femoral head, the right common femoral artery was visualized with ultrasound. Right common femoral artery: normal and patent. The right common femoral artery was found to be sufficient for transfemoral access. A permanent image of the artery was archived. 1% lidocaine was administered for local anesthesia. Vascular access was then obtained in the right common femoral artery utilizing a standard 4 Fr micropuncture set, under direct ultrasound visualization. A 5 Fr sheath was inserted in the right femoral artery, which was subsequently flushed. Then attention was turned toward venous access. After fluoroscopic localization of the right femoral head, the right common femoral vein was visualized with ultrasound. Right common femoral vein: Normal and patent. The right common femoral vein was found to be sufficient for transfemoral access. A permanent image of the vein was archived. 1% lidocaine was administered for local anesthesia. Vascular access was then obtained in the right common femoral vein utilizing a standard 4 Icelandic micropuncture set, under direct ultrasound visualization. A 6 Icelandic sheath was inserted in the right common femoral vein, which was subsequently flushed. Baseline and serial ACTs were obtained, and intermittent boluses of intravenous heparin were administered to maintain an appropriate and therapeutic level of anticoagulation throughout the procedure. Through the right femoral arterial sheath, a 5 Fr Angled Taper GlideCath catheter and wire were then fluoroscopically advanced for selective catheterization of the following vessels: Brachiocephalic vascular family: Right common carotid artery, cervical views. Right internal carotid artery, intracranial views. Standard AP and lateral views. Right external carotid artery, cranial views. Right vertebral artery, intracranial views. Standard AP and lateral views. Left carotid vascular family: Left common carotid artery, cervical views. Left internal carotid artery, intracranial views. Standard AP and lateral views. Left external carotid artery, cranial views. Left subclavian vascular family: Left vertebral artery, intracranial views. Standard AP and lateral views. Additionally, in conjunction with the glide wire, a 6 Icelandic Envoy catheter was utilized to select the left jugular bulb, from which venographic injections were performed. Left internal jugular vein, AP and lateral views. COMPLICATIONS: There were no observed complications during the procedure or in the immediate post-operative period. FINDINGS: RIGHT COMMON CAROTID ARTERY INJECTION (cervical): DSA images of the right anterior cervical circulation demonstrate normal course and caliber of the distal common carotid artery. There is no significant atherosclerosis at the carotid bifurcation. The cervical ICA has normal course and caliber. The proximal ECA and its branches demonstrate a normal course and caliber. There is no evidence of dissection or dural AV fistula. RIGHT INTERNAL CAROTID ARTERY INJECTION (cranial): DSA images of the right anterior intracranial circulation demonstrate normal course and caliber of the petrous, cavernous and supraclinoid segments of the internal carotid artery. The ophthalmic artery origin, course and caliber are normal. There is a moderate sized PCOMM artery that contributes to the posterior circulation. The anterior choroidal artery is normal. The right M1 segment and corresponding MCA distribution are normal. The right A1 segment is hypoplastic. The right HAO distribution is faintly visualized. There is no filling across the anterior communicating artery to the contralateral HAO. Capillary and venous phases are normal. No aneurysm or arteriovenous malformation is identified. The right transverse sigmoid sinus system is dominant. RIGHT EXTERNAL CAROTID ARTERY (cranial): The external carotid artery course, caliber and terminal branches are normal. No arteriovenous malformation or arteriovenous fistula is identified. LEFT COMMON CAROTID ARTERY INJECTION (cervical): DSA images of the left anterior cervical circulation demonstrate normal course and caliber of the distal common carotid artery. There is no significant atherosclerosis at the carotid bifurcation. The cervical ICA has normal course and caliber. The proximal ECA and its branches demonstrate a normal course and caliber. There is no evidence of dissection or dural AV fistula. LEFT INTERNAL CAROTID ARTERY INJECTION (cranial): DSA images of the left anterior intracranial circulation demonstrate normal course and caliber of the petrous, cavernous and supraclinoid segments of the internal carotid artery. The ophthalmic artery origin, course and caliber are normal. There is a small PCOMM artery without significant contribution to the posterior circulation. The anterior choroidal artery is normal. M1 and A1 segments are normal. MCA and HAO distributions are normal. There is robust filling across the anterior communicating artery to the contralateral HAO. Capillary and venous phases are normal. No aneurysm or arteriovenous malformation is identified. The left transverse sigmoid sinus system is nondominant. There is mild narrowing of the left transverse-sigmoid sinus junction which is less than 50%. LEFT EXTERNAL CAROTID ARTERY (cranial): The external carotid artery course, caliber and terminal branches are normal. No arteriovenous malformation or arteriovenous fistula is identified. RIGHT VERTEBRAL ARTERY INJECTION: DSA images of the posterior intracranial circulation demonstrate normal course and caliber of the distal right vertebral artery. The vertebrobasilar confluence is normal. There is no reflux of contrast down the left vertebral artery. The basilar segment and apex are normal. The right posterior-inferior cerebellar artery is normal. Bilateral anterior-inferior cerebellar arteries are normal. Bilateral superior cerebellar arteries are normal. Bilateral posterior cerebral arteries are normal. The capillary and venous phases are normal. No aneurysm or arteriovenous shunting is identified. LEFT VERTEBRAL ARTERY INJECTION: DSA images of the posterior intracranial circulation demonstrate normal course and caliber of the distal left vertebral artery. The vertebrobasilar confluence is normal. There is no reflux of contrast down the left vertebral artery. The basilar segment and apex are normal. The left PICA is normal. Bilateral anterior-inferior cerebellar arteries are normal. Bilateral superior cerebellar arteries are normal. Bilateral posterior cerebral arteries are normal. The capillary and venous phases are normal. No aneurysm or arteriovenous shunting is identified. LEFT INTERNAL JUGULAR VEIN: DSA images demonstrate mild narrowing of the left transverse-sigmoid sinus junction. Otherwise the left-sided jugular venous system appears normal. BASED ON THE ABOVE FINDINGS, THE FOLLOWING INTERVENTION WAS PERFORMED: PROCEDURE: The 5 Icelandic angled Taper Glidecath catheter was maintained in position in the left common carotid artery and connected to continuous heparinized saline infusion. A 6 Icelandic Envoy catheter was maintained in the left jugular bulb and also connected to continuous heparinized saline infusion. The 0.014 transcend microwire and 7mm Transform balloon were advanced to the proximal left transverse sinus. At this point functional testing was performed. The patient's head was turned to the right and the left side of the neck was compressed. Pulsatile tinnitus severity was largely unchanged with left neck compression. Angiographic injections were performed from the left common carotid artery as follows. LEFT COMMON CAROTID ARTERY INJECTION: Severely motion limited DSA images of the left anterior intracranial circulation remain unchanged compared to the prior angiographic images. The left jugular venous system appears patent with a left neck compression, although venous phase images are severely motion degraded. At this point test balloon occlusion of the left-sided jugular venous system was attempted. The Transform balloon was inflated to nominal pressure in the left transverse-sigmoid sinus junction. Prior to balloon inflation, the patient's left-sided tinnitus was rated to be an 8 out of 10. Following balloon inflation to nominal pressure, the patient rated the left-sided pulsatile tinnitus to be a 3 out of 10 in severity. Angiographic injection was performed from the left common carotid artery with the balloon inflated at nominal pressure. LEFT COMMON CAROTID ARTERY INJECTION (left transverse sinus balloon inflation): DSA images of the left anterior circulation remain unchanged compared to the preintervention angiographic findings. Flow through the left jugular venous system is significantly decreased, but not completely occluded. The balloon was subsequently deflated and then reinflated in the left jugular bulb. The transformed balloon was inflated to nominal pressure in the left jugular bulb. With balloon inflation in the left jugular bulb, pulsatile tinnitus had a modest decrease in intensity but not as much as that experienced during left-sided jugular bulb balloon inflation. LEFT COMMON CAROTID ARTERY INJECTION (left jugular bulb balloon inflation): DSA images of the left anterior circulation remain unchanged compared to the preintervention angiographic findings. Flow through the left jugular venous system is significantly decreased, but not completely occluded. After final angiographic images were obtained, the diagnostic and guide catheters were removed from the body. Angiography of the access site was performed through the right femoral sheath. RIGHT COMMON FEMORAL ARTERY: DSA images demonstrate normal course and caliber of the right common femoral artery. The sheath is in place above the bifurcation and below the inferior epigastric artery. There is no evidence of dissection or pseudoaneurysm. Kala Joseph PA-C INTERVENTIONAL RADIOLOGY Fi nal Result * IR VERTEBRAL ARTERY (09/28/2024 1:36 PM EDT) Anatomical Region Laterality Modality Other 09/28/2024 1:36 PM EDT Impressions 10/01/2024 11:58 AM EDT IMPRESSION: 1. No arteriovenous shunting to explain the patient's left-sided pulsatile tinnitus. 2. Mild left-sided transverse-sigmoid sinus narrowing measuring less than 50%. 3. Moderate decrease in pulsatile tinnitus severity during left transverse-sigmoid sinus balloon inflation. 4. Modest decrease in pulsatile tinnitus severity during left jugular bulb balloon inflation. Bradford Carver MD Fellow, Endovascular Surgical Neuroradiology Certified Residential Medication Aide: [facility] Transcribe Date/Time: Oct 01 2024 6:27A Dictated by : BRADFORD CARVER MD This examination was interpreted and the report reviewed and electronically signed by: SULEMAN BUSTOS MD on Oct 01 2024 11:56AM EST Narrative 10/01/2024 11:58 AM EDT * * *Final Report* * * DATE OF EXAM: Sep 28 2024 1:36PM NDA 0821 - IR VERTEBRAL ARTERY / PROCEDURE REASON: Pulsatile tinnitus, left ear * * * * Physician Interpretation * * * * Endovascular Surgical Neuroradiology Report CLINICAL HISTORY: This patient is a 29 years-old Female who presented with left sided pulsatile tinnitus. A diagnostic cervicocerebral angiogram and test balloon occlusion were requested to evaluate the cerebral vasculature for surgical planning. PROCEDURE: 1. Ultrasound-guided right femoral artery and right femoral vein access. 2. Diagnostic cervicocerebral angiogram. 3. Test balloon occlusion of the left transverse sinus and jugular vein. 4. Follow up cerebral angiogram 5. Closure device - 5F Vascade (artery) and 6/7 Vascade (vein) INFORMED CONSENT: The procedural risks, benefits, alternatives and complications were discussed with the patient. All questions were answered and they requested that we proceed. PRE-PROCEDURAL DIAGNOSIS: pulsatile tinnitus POST-PROCEDURAL DIAGNOSIS: Same. TIME OUT TIME: 11:55 PROCEDURE START TIME: 12:00 PROCEDURE END TIME: 13:04 ATTENDING: Suleman Bustos MD [employer] (FELLOW): Bradford Carver MD The procedure was performed by the attending, with an registered sales assistant. ANESTHESIA: No sedation was given. Pulsed oximetry, cardiopulmonary monitoring and electrocardiography was performed throughout the procedure by the anesthesiology team. ANGIOGRAPHY MATERIALS: Diagnostic catheter: 5 Fr Angled Taper GlideCath catheter Guidewire: 0.035 angled-tapered Glidewire. Guide catheter: 6 Fr Envoy catheter Balloon: 7 mm x 7 mm Transform balloon delivery microcatheter Transend 0.014 Fluoroscopic Radiation Summary: Plane A, Air Kerma: 749.5 mGy Plane B, Air Kerma: 218.2 mGy Dose Area Product (DAP): 14319 uGym2 Fluoro time: 21:24 min:sec arterial: 185 ml of OMNIPAQUE 300 TECHNIQUE: After discussion of the risks and benefits of diagnostic cerebral angiography, informed consent was obtained. The patient was brought to the angiography suite and placed in supine position. The right groin areas were prepped and draped in the usual standard fashion. After fluoroscopic localization of the right femoral head, the right common femoral artery was visualized with ultrasound. Right common femoral artery: normal and patent. The right common femoral artery was found to be sufficient for transfemoral access. A permanent image of the artery was archived. 1% lidocaine was administered for local anesthesia. Vascular access was then obtained in the right common femoral artery utilizing a standard 4 Fr micropuncture set, under direct ultrasound visualization. A 5 Fr sheath was inserted in the right femoral artery, which was subsequently flushed. Then attention was turned toward venous access. After fluoroscopic localization of the right femoral head, the right common femoral vein was visualized with ultrasound. Right common femoral vein: Normal and patent. The right common femoral vein was found to be sufficient for transfemoral access. A permanent image of the vein was archived. 1% lidocaine was administered for local anesthesia. Vascular access was then obtained in the right common femoral vein utilizing a standard 4 Icelandic micropuncture set, under direct ultrasound visualization. A 6 Icelandic sheath was inserted in the right common femoral vein, which was subsequently flushed. Baseline and serial ACTs were obtained, and intermittent boluses of intravenous heparin were administered to maintain an appropriate and therapeutic level of anticoagulation throughout the procedure. Through the right femoral arterial sheath, a 5 Fr Angled Taper GlideCath catheter and wire were then fluoroscopically advanced for selective catheterization of the following vessels: Brachiocephalic vascular family: Right common carotid artery, cervical views. Right internal carotid artery, intracranial views. Standard AP and lateral views. Right external carotid artery, cranial views. Right vertebral artery, intracranial views. Standard AP and lateral views. Left carotid vascular family: Left common carotid artery, cervical views. Left internal carotid artery, intracranial views. Standard AP and lateral views. Left external carotid artery, cranial views. Left subclavian vascular family: Left vertebral artery, intracranial views. Standard AP and lateral views. Additionally, in conjunction with the glide wire, a 6 Icelandic Envoy catheter was utilized to select the left jugular bulb, from which venographic injections were performed. Left internal jugular vein, AP and lateral views. COMPLICATIONS: There were no observed complications during the procedure or in the immediate post-operative period. FINDINGS: RIGHT COMMON CAROTID ARTERY INJECTION (cervical): DSA images of the right anterior cervical circulation demonstrate normal course and caliber of the distal common carotid artery. There is no significant atherosclerosis at the carotid bifurcation. The cervical ICA has normal course and caliber. The proximal ECA and its branches demonstrate a normal course and caliber. There is no evidence of dissection or dural AV fistula. RIGHT INTERNAL CAROTID ARTERY INJECTION (cranial): DSA images of the right anterior intracranial circulation demonstrate normal course and caliber of the petrous, cavernous and supraclinoid segments of the internal carotid artery. The ophthalmic artery origin, course and caliber are normal. There is a moderate sized PCOMM artery that contributes to the posterior circulation. The anterior choroidal artery is normal. The right M1 segment and corresponding MCA distribution are normal. The right A1 segment is hypoplastic. The right HAO distribution is faintly visualized. There is no filling across the anterior communicating artery to the contralateral HAO. Capillary and venous phases are normal. No aneurysm or arteriovenous malformation is identified. The right transverse sigmoid sinus system is dominant. RIGHT EXTERNAL CAROTID ARTERY (cranial): The external carotid artery course, caliber and terminal branches are normal. No arteriovenous malformation or arteriovenous fistula is identified. LEFT COMMON CAROTID ARTERY INJECTION (cervical): DSA images of the left anterior cervical circulation demonstrate normal course and caliber of the distal common carotid artery. There is no significant atherosclerosis at the carotid bifurcation. The cervical ICA has normal course and caliber. The proximal ECA and its branches demonstrate a normal course and caliber. There is no evidence of dissection or dural AV fistula. LEFT INTERNAL CAROTID ARTERY INJECTION (cranial): DSA images of the left anterior intracranial circulation demonstrate normal course and caliber of the petrous, cavernous and supraclinoid segments of the internal carotid artery. The ophthalmic artery origin, course and caliber are normal. There is a small PCOMM artery without significant contribution to the posterior circulation. The anterior choroidal artery is normal. M1 and A1 segments are normal. MCA and HAO distributions are normal. There is robust filling across the anterior communicating artery to the contralateral HAO. Capillary and venous phases are normal. No aneurysm or arteriovenous malformation is identified. The left transverse sigmoid sinus system is nondominant. There is mild narrowing of the left transverse-sigmoid sinus junction which is less than 50%. LEFT EXTERNAL CAROTID ARTERY (cranial): The external carotid artery course, caliber and terminal branches are normal. No arteriovenous malformation or arteriovenous fistula is identified. RIGHT VERTEBRAL ARTERY INJECTION: DSA images of the posterior intracranial circulation demonstrate normal course and caliber of the distal right vertebral artery. The vertebrobasilar confluence is normal. There is no reflux of contrast down the left vertebral artery. The basilar segment and apex are normal. The right posterior-inferior cerebellar artery is normal. Bilateral anterior-inferior cerebellar arteries are normal. Bilateral superior cerebellar arteries are normal. Bilateral posterior cerebral arteries are normal. The capillary and venous phases are normal. No aneurysm or arteriovenous shunting is identified. LEFT VERTEBRAL ARTERY INJECTION: DSA images of the posterior intracranial circulation demonstrate normal course and caliber of the distal left vertebral artery. The vertebrobasilar confluence is normal. There is no reflux of contrast down the left vertebral artery. The basilar segment and apex are normal. The left PICA is normal. Bilateral anterior-inferior cerebellar arteries are normal. Bilateral superior cerebellar arteries are normal. Bilateral posterior cerebral arteries are normal. The capillary and venous phases are normal. No aneurysm or arteriovenous shunting is identified. LEFT INTERNAL JUGULAR VEIN: DSA images demonstrate mild narrowing of the left transverse-sigmoid sinus junction. Otherwise the left-sided jugular venous system appears normal. BASED ON THE ABOVE FINDINGS, THE FOLLOWING INTERVENTION WAS PERFORMED: PROCEDURE: The 5 Icelandic angled Taper Glidecath catheter was maintained in position in the left common carotid artery and connected to continuous heparinized saline infusion. A 6 Icelandic Envoy catheter was maintained in the left jugular bulb and also connected to continuous heparinized saline infusion. The 0.014 transcend microwire and 7mm Transform balloon were advanced to the proximal left transverse sinus. At this point functional testing was performed. The patient's head was turned to the right and the left side of the neck was compressed. Pulsatile tinnitus severity was largely unchanged with left neck compression. Angiographic injections were performed from the left common carotid artery as follows. LEFT COMMON CAROTID ARTERY INJECTION: Severely motion limited DSA images of the left anterior intracranial circulation remain unchanged compared to the prior angiographic images. The left jugular venous system appears patent with a left neck compression, although venous phase images are severely motion degraded. At this point test balloon occlusion of the left-sided jugular venous system was attempted. The Transform balloon was inflated to nominal pressure in the left transverse-sigmoid sinus junction. Prior to balloon inflation, the patient's left-sided tinnitus was rated to be an 8 out of 10. Following balloon inflation to nominal pressure, the patient rated the left-sided pulsatile tinnitus to be a 3 out of 10 in severity. Angiographic injection was performed from the left common carotid artery with the balloon inflated at nominal pressure. LEFT COMMON CAROTID ARTERY INJECTION (left transverse sinus balloon inflation): DSA images of the left anterior circulation remain unchanged compared to the preintervention angiographic findings. Flow through the left jugular venous system is significantly decreased, but not completely occluded. The balloon was subsequently deflated and then reinflated in the left jugular bulb. The transformed balloon was inflated to nominal pressure in the left jugular bulb. With balloon inflation in the left jugular bulb, pulsatile tinnitus had a modest decrease in intensity but not as much as that experienced during left-sided jugular bulb balloon inflation. LEFT COMMON CAROTID ARTERY INJECTION (left jugular bulb balloon inflation): DSA images of the left anterior circulation remain unchanged compared to the preintervention angiographic findings. Flow through the left jugular venous system is significantly decreased, but not completely occluded. After final angiographic images were obtained, the diagnostic and guide catheters were removed from the body. Angiography of the access site was performed through the right femoral sheath. RIGHT COMMON FEMORAL ARTERY: DSA images demonstrate normal course and caliber of the right common femoral artery. The sheath is in place above the bifurcation and below the inferior epigastric artery. There is no evidence of dissection or pseudoaneurysm. us Kala Joseph PA-C INTERVENTIONAL RADIOLOGY Fi nal Result * IR CEREBRAL ARCH & THREE VESSEL (09/28/2024 1:36 PM EDT) Anatomical Region Laterality Modality Other 09/28/2024 1:36 PM EDT Impressions 10/01/2024 11:58 AM EDT IMPRESSION: 1. No arteriovenous shunting to explain the patient's left-sided pulsatile tinnitus. 2. Mild left-sided transverse-sigmoid sinus narrowing measuring less than 50%. 3. Moderate decrease in pulsatile tinnitus severity during left transverse-sigmoid sinus balloon inflation. 4. Modest decrease in pulsatile tinnitus severity during left jugular bulb balloon inflation. Bradford Carver MD Fellow, Endovascular Surgical Neuroradiology Certified Residential Medication Aide: PSCB Transcribe Date/Time: Oct 01 2024 6:27A Dictated by : BRADFORD CARVER MD This examination was interpreted and the report reviewed and electronically signed by: SULEMAN BUSTOS MD on Oct 01 2024 11:56AM EST Narrative 10/01/2024 11:58 AM EDT * * *Final Report* * * DATE OF EXAM: Sep 28 2024 1:36PM EDILSON [id number] - IR TEST OCCLUSION / PROCEDURE REASON: Pulsatile tinnitus, left ear * * * * Physician Interpretation * * * * Endovascular Surgical Neuroradiology Report CLINICAL HISTORY: This patient is a 29 years-old Female who presented with left sided pulsatile tinnitus. A diagnostic cervicocerebral angiogram and test balloon occlusion were requested to evaluate the cerebral vasculature for surgical planning. PROCEDURE: 1. Ultrasound-guided right femoral artery and right femoral vein access. 2. Diagnostic cervicocerebral angiogram. 3. Test balloon occlusion of the left transverse sinus and jugular vein. 4. Follow up cerebral angiogram 5. Closure device - 5F Vascade (artery) and 6/7 Vascade (vein) INFORMED CONSENT: The procedural risks, benefits, alternatives and complications were discussed with the patient. All questions were answered and they requested that we proceed. PRE-PROCEDURAL DIAGNOSIS: pulsatile tinnitus POST-PROCEDURAL DIAGNOSIS: Same. TIME OUT TIME: 11:55 PROCEDURE START TIME: 12:00 PROCEDURE END TIME: 13:04 ATTENDING: Suleman Bustos MD [employer] (FELLOW): Bradford Carver MD The procedure was performed by the attending, with an registered sales assistant. ANESTHESIA: No sedation was given. Pulsed oximetry, cardiopulmonary monitoring and electrocardiography was performed throughout the procedure by the anesthesiology team. ANGIOGRAPHY MATERIALS: Diagnostic catheter: 5 Fr Angled Taper GlideCath catheter Guidewire: 0.035 angled-tapered Glidewire. Guide catheter: 6 Fr Envoy catheter Balloon: 7 mm x 7 mm Transform balloon delivery microcatheter Transend 0.014 Fluoroscopic Radiation Summary: Plane A, Air Kerma: 749.5 mGy Plane B, Air Kerma: 218.2 mGy Dose Area Product (DAP): [id number] uGym2 Fluoro time: 21:24 min:sec arterial: 185 ml of OMNIPAQUE 300 TECHNIQUE: After discussion of the risks and benefits of diagnostic cerebral angiography, informed consent was obtained. The patient was brought to the angiography suite and placed in supine position. The right groin areas were prepped and draped in the usual standard fashion. After fluoroscopic localization of the right femoral head, the right common femoral artery was visualized with ultrasound. Right common femoral artery: normal and patent. The right common femoral artery was found to be sufficient for transfemoral access. A permanent image of the artery was archived. 1% lidocaine was administered for local anesthesia. Vascular access was then obtained in the right common femoral artery utilizing a standard 4 Fr micropuncture set, under direct ultrasound visualization. A 5 Fr sheath was inserted in the right femoral artery, which was subsequently flushed. Then attention was turned toward venous access. After fluoroscopic localization of the right femoral head, the right common femoral vein was visualized with ultrasound. Right common femoral vein: Normal and patent. The right common femoral vein was found to be sufficient for transfemoral access. A permanent image of the vein was archived. 1% lidocaine was administered for local anesthesia. Vascular access was then obtained in the right common femoral vein utilizing a standard 4 Icelandic micropuncture set, under direct ultrasound visualization. A 6 Icelandic sheath was inserted in the right common femoral vein, which was subsequently flushed. Baseline and serial ACTs were obtained, and intermittent boluses of intravenous heparin were administered to maintain an appropriate and therapeutic level of anticoagulation throughout the procedure. Through the right femoral arterial sheath, a 5 Fr Angled Taper GlideCath catheter and wire were then fluoroscopically advanced for selective catheterization of the following vessels: Brachiocephalic vascular family: Right common carotid artery, cervical views. Right internal carotid artery, intracranial views. Standard AP and lateral views. Right external carotid artery, cranial views. Right vertebral artery, intracranial views. Standard AP and lateral views. Left carotid vascular family: Left common carotid artery, cervical views. Left internal carotid artery, intracranial views. Standard AP and lateral views. Left external carotid artery, cranial views. Left subclavian vascular family: Left vertebral artery, intracranial views. Standard AP and lateral views. Additionally, in conjunction with the glide wire, a 6 Icelandic Envoy catheter was utilized to select the left jugular bulb, from which venographic injections were performed. Left internal jugular vein, AP and lateral views. COMPLICATIONS: There were no observed complications during the procedure or in the immediate post-operative period. FINDINGS: RIGHT COMMON CAROTID ARTERY INJECTION (cervical): DSA images of the right anterior cervical circulation demonstrate normal course and caliber of the distal common carotid artery. There is no significant atherosclerosis at the carotid bifurcation. The cervical ICA has normal course and caliber. The proximal ECA and its branches demonstrate a normal course and caliber. There is no evidence of dissection or dural AV fistula. RIGHT INTERNAL CAROTID ARTERY INJECTION (cranial): DSA images of the right anterior intracranial circulation demonstrate normal course and caliber of the petrous, cavernous and supraclinoid segments of the internal carotid artery. The ophthalmic artery origin, course and caliber are normal. There is a moderate sized PCOMM artery that contributes to the posterior circulation. The anterior choroidal artery is normal. The right M1 segment and corresponding MCA distribution are normal. The right A1 segment is hypoplastic. The right HAO distribution is faintly visualized. There is no filling across the anterior communicating artery to the contralateral HAO. Capillary and venous phases are normal. No aneurysm or arteriovenous malformation is identified. The right transverse sigmoid sinus system is dominant. RIGHT EXTERNAL CAROTID ARTERY (cranial): The external carotid artery course, caliber and terminal branches are normal. No arteriovenous malformation or arteriovenous fistula is identified. LEFT COMMON CAROTID ARTERY INJECTION (cervical): DSA images of the left anterior cervical circulation demonstrate normal course and caliber of the distal common carotid artery. There is no significant atherosclerosis at the carotid bifurcation. The cervical ICA has normal course and caliber. The proximal ECA and its branches demonstrate a normal course and caliber. There is no evidence of dissection or dural AV fistula. LEFT INTERNAL CAROTID ARTERY INJECTION (cranial): DSA images of the left anterior intracranial circulation demonstrate normal course and caliber of the petrous, cavernous and supraclinoid segments of the internal carotid artery. The ophthalmic artery origin, course and caliber are normal. There is a small PCOMM artery without significant contribution to the posterior circulation. The anterior choroidal artery is normal. M1 and A1 segments are normal. MCA and HAO distributions are normal. There is robust filling across the anterior communicating artery to the contralateral HAO. Capillary and venous phases are normal. No aneurysm or arteriovenous malformation is identified. The left transverse sigmoid sinus system is nondominant. There is mild narrowing of the left transverse-sigmoid sinus junction which is less than 50%. LEFT EXTERNAL CAROTID ARTERY (cranial): The external carotid artery course, caliber and terminal branches are normal. No arteriovenous malformation or arteriovenous fistula is identified. RIGHT VERTEBRAL ARTERY INJECTION: DSA images of the posterior intracranial circulation demonstrate normal course and caliber of the distal right vertebral artery. The vertebrobasilar confluence is normal. There is no reflux of contrast down the left vertebral artery. The basilar segment and apex are normal. The right posterior-inferior cerebellar artery is normal. Bilateral anterior-inferior cerebellar arteries are normal. Bilateral superior cerebellar arteries are normal. Bilateral posterior cerebral arteries are normal. The capillary and venous phases are normal. No aneurysm or arteriovenous shunting is identified. LEFT VERTEBRAL ARTERY INJECTION: DSA images of the posterior intracranial circulation demonstrate normal course and caliber of the distal left vertebral artery. The vertebrobasilar confluence is normal. There is no reflux of contrast down the left vertebral artery. The basilar segment and apex are normal. The left PICA is normal. Bilateral anterior-inferior cerebellar arteries are normal. Bilateral superior cerebellar arteries are normal. Bilateral posterior cerebral arteries are normal. The capillary and venous phases are normal. No aneurysm or arteriovenous shunting is identified. LEFT INTERNAL JUGULAR VEIN: DSA images demonstrate mild narrowing of the left transverse-sigmoid sinus junction. Otherwise the left-sided jugular venous system appears normal. BASED ON THE ABOVE FINDINGS, THE FOLLOWING INTERVENTION WAS PERFORMED: PROCEDURE: The 5 Icelandic angled Taper Glidecath catheter was maintained in position in the left common carotid artery and connected to continuous heparinized saline infusion. A 6 Icelandic Envoy catheter was maintained in the left jugular bulb and also connected to continuous heparinized saline infusion. The 0.014 transcend microwire and 7mm Transform balloon were advanced to the proximal left transverse sinus. At this point functional testing was performed. The patient's head was turned to the right and the left side of the neck was compressed. Pulsatile tinnitus severity was largely unchanged with left neck compression. Angiographic injections were performed from the left common carotid artery as follows. LEFT COMMON CAROTID ARTERY INJECTION: Severely motion limited DSA images of the left anterior intracranial circulation remain unchanged compared to the prior angiographic images. The left jugular venous system appears patent with a left neck compression, although venous phase images are severely motion degraded. At this point test balloon occlusion of the left-sided jugular venous system was attempted. The Transform balloon was inflated to nominal pressure in the left transverse-sigmoid sinus junction. Prior to balloon inflation, the patient's left-sided tinnitus was rated to be an 8 out of 10. Following balloon inflation to nominal pressure, the patient rated the left-sided pulsatile tinnitus to be a 3 out of 10 in severity. Angiographic injection was performed from the left common carotid artery with the balloon inflated at nominal pressure. LEFT COMMON CAROTID ARTERY INJECTION (left transverse sinus balloon inflation): DSA images of the left anterior circulation remain unchanged compared to the preintervention angiographic findings. Flow through the left jugular venous system is significantly decreased, but not completely occluded. The balloon was subsequently deflated and then reinflated in the left jugular bulb. The transformed balloon was inflated to nominal pressure in the left jugular bulb. With balloon inflation in the left jugular bulb, pulsatile tinnitus had a modest decrease in intensity but not as much as that experienced during left-sided jugular bulb balloon inflation. LEFT COMMON CAROTID ARTERY INJECTION (left jugular bulb balloon inflation): DSA images of the left anterior circulation remain unchanged compared to the preintervention angiographic findings. Flow through the left jugular venous system is significantly decreased, but not completely occluded. After final angiographic images were obtained, the diagnostic and guide catheters were removed from the body. Angiography of the access site was performed through the right femoral sheath. RIGHT COMMON FEMORAL ARTERY: DSA images demonstrate normal course and caliber of the right common femoral artery. The sheath is in place above the bifurcation and below the inferior epigastric artery. There is no evidence of dissection or pseudoaneurysm. us Kala Joseph PA-C INTERVENTIONAL RADIOLOGY Fi nal Result * IR CAROTID EFFIE (09/28/2024 1:36 PM EDT) Anatomical Region Laterality Modality Other 09/28/2024 1:36 PM EDT Impressions 10/01/2024 11:58 AM EDT IMPRESSION: 1. No arteriovenous shunting to explain the patient's left-sided pulsatile tinnitus. 2. Mild left-sided transverse-sigmoid sinus narrowing measuring less than 50%. 3. Moderate decrease in pulsatile tinnitus severity during left transverse-sigmoid sinus balloon inflation. 4. Modest decrease in pulsatile tinnitus severity during left jugular bulb balloon inflation. Bradford Carver MD Fellow, Endovascular Surgical Neuroradiology Certified Residential Medication Aide: GAIL Transcribe Date/Time: Oct 01 2024 6:27A Dictated by : BRADFORD CARVER MD This examination was interpreted and the report reviewed and electronically signed by: SULEMAN BUSTOS MD on Oct 01 2024 11:56AM EST Narrative 10/01/2024 11:58 AM EDT * * *Final Report* * * DATE OF EXAM: Sep 28 2024 1:36PM NDA 5130 - IR CAROTID - INTERNAL / PROCEDURE REASON: Pulsatile tinnitus, left ear * * * * Physician Interpretation * * * * Endovascular Surgical Neuroradiology Report CLINICAL HISTORY: This patient is a 29 years-old Female who presented with left sided pulsatile tinnitus. A diagnostic cervicocerebral angiogram and test balloon occlusion were requested to evaluate the cerebral vasculature for surgical planning. PROCEDURE: 1. Ultrasound-guided right femoral artery and right femoral vein access. 2. Diagnostic cervicocerebral angiogram. 3. Test balloon occlusion of the left transverse sinus and jugular vein. 4. Follow up cerebral angiogram 5. Closure device - 5F Vascade (artery) and 6/7 Vascade (vein) INFORMED CONSENT: The procedural risks, benefits, alternatives and complications were discussed with the patient. All questions were answered and they requested that we proceed. PRE-PROCEDURAL DIAGNOSIS: pulsatile tinnitus POST-PROCEDURAL DIAGNOSIS: Same. TIME OUT TIME: 11:55 PROCEDURE START TIME: 12:00 PROCEDURE END TIME: 13:04 ATTENDING: Suleman Bustos MD [employer] (FELLOW): Bradford Carver MD The procedure was performed by the attending, with an registered sales assistant. ANESTHESIA: No sedation was given. Pulsed oximetry, cardiopulmonary monitoring and electrocardiography was performed throughout the procedure by the anesthesiology team. ANGIOGRAPHY MATERIALS: Diagnostic catheter: 5 Fr Angled Taper GlideCath catheter Guidewire: 0.035 angled-tapered Glidewire. Guide catheter: 6 Fr Envoy catheter Balloon: 7 mm x 7 mm Transform balloon delivery microcatheter Transend 0.014 Fluoroscopic Radiation Summary: Plane A, Air Kerma: 749.5 mGy Plane B, Air Kerma: 218.2 mGy Dose Area Product (DAP): [id number] uGym2 Fluoro time: 21:24 min:sec arterial: 185 ml of OMNIPAQUE 300 TECHNIQUE: After discussion of the risks and benefits of diagnostic cerebral angiography, informed consent was obtained. The patient was brought to the angiography suite and placed in supine position. The right groin areas were prepped and draped in the usual standard fashion. After fluoroscopic localization of the right femoral head, the right common femoral artery was visualized with ultrasound. Right common femoral artery: normal and patent. The right common femoral artery was found to be sufficient for transfemoral access. A permanent image of the artery was archived. 1% lidocaine was administered for local anesthesia. Vascular access was then obtained in the right common femoral artery utilizing a standard 4 Fr micropuncture set, under direct ultrasound visualization. A 5 Fr sheath was inserted in the right femoral artery, which was subsequently flushed. Then attention was turned toward venous access. After fluoroscopic localization of the right femoral head, the right common femoral vein was visualized with ultrasound. Right common femoral vein: Normal and patent. The right common femoral vein was found to be sufficient for transfemoral access. A permanent image of the vein was archived. 1% lidocaine was administered for local anesthesia. Vascular access was then obtained in the right common femoral vein utilizing a standard 4 Icelandic micropuncture set, under direct ultrasound visualization. A 6 Icelandic sheath was inserted in the right common femoral vein, which was subsequently flushed. Baseline and serial ACTs were obtained, and intermittent boluses of intravenous heparin were administered to maintain an appropriate and therapeutic level of anticoagulation throughout the procedure. Through the right femoral arterial sheath, a 5 Fr Angled Taper GlideCath catheter and wire were then fluoroscopically advanced for selective catheterization of the following vessels: Brachiocephalic vascular family: Right common carotid artery, cervical views. Right internal carotid artery, intracranial views. Standard AP and lateral views. Right external carotid artery, cranial views. Right vertebral artery, intracranial views. Standard AP and lateral views. Left carotid vascular family: Left common carotid artery, cervical views. Left internal carotid artery, intracranial views. Standard AP and lateral views. Left external carotid artery, cranial views. Left subclavian vascular family: Left vertebral artery, intracranial views. Standard AP and lateral views. Additionally, in conjunction with the glide wire, a 6 Icelandic Envoy catheter was utilized to select the left jugular bulb, from which venographic injections were performed. Left internal jugular vein, AP and lateral views. COMPLICATIONS: There were no observed complications during the procedure or in the immediate post-operative period. FINDINGS: RIGHT COMMON CAROTID ARTERY INJECTION (cervical): DSA images of the right anterior cervical circulation demonstrate normal course and caliber of the distal common carotid artery. There is no significant atherosclerosis at the carotid bifurcation. The cervical ICA has normal course and caliber. The proximal ECA and its branches demonstrate a normal course and caliber. There is no evidence of dissection or dural AV fistula. RIGHT INTERNAL CAROTID ARTERY INJECTION (cranial): DSA images of the right anterior intracranial circulation demonstrate normal course and caliber of the petrous, cavernous and supraclinoid segments of the internal carotid artery. The ophthalmic artery origin, course and caliber are normal. There is a moderate sized PCOMM artery that contributes to the posterior circulation. The anterior choroidal artery is normal. The right M1 segment and corresponding MCA distribution are normal. The right A1 segment is hypoplastic. The right HAO distribution is faintly visualized. There is no filling across the anterior communicating artery to the contralateral HAO. Capillary and venous phases are normal. No aneurysm or arteriovenous malformation is identified. The right transverse sigmoid sinus system is dominant. RIGHT EXTERNAL CAROTID ARTERY (cranial): The external carotid artery course, caliber and terminal branches are normal. No arteriovenous malformation or arteriovenous fistula is identified. LEFT COMMON CAROTID ARTERY INJECTION (cervical): DSA images of the left anterior cervical circulation demonstrate normal course and caliber of the distal common carotid artery. There is no significant atherosclerosis at the carotid bifurcation. The cervical ICA has normal course and caliber. The proximal ECA and its branches demonstrate a normal course and caliber. There is no evidence of dissection or dural AV fistula. LEFT INTERNAL CAROTID ARTERY INJECTION (cranial): DSA images of the left anterior intracranial circulation demonstrate normal course and caliber of the petrous, cavernous and supraclinoid segments of the internal carotid artery. The ophthalmic artery origin, course and caliber are normal. There is a small PCOMM artery without significant contribution to the posterior circulation. The anterior choroidal artery is normal. M1 and A1 segments are normal. MCA and HAO distributions are normal. There is robust filling across the anterior communicating artery to the contralateral HAO. Capillary and venous phases are normal. No aneurysm or arteriovenous malformation is identified. The left transverse sigmoid sinus system is nondominant. There is mild narrowing of the left transverse-sigmoid sinus junction which is less than 50%. LEFT EXTERNAL CAROTID ARTERY (cranial): The external carotid artery course, caliber and terminal branches are normal. No arteriovenous malformation or arteriovenous fistula is identified. RIGHT VERTEBRAL ARTERY INJECTION: DSA images of the posterior intracranial circulation demonstrate normal course and caliber of the distal right vertebral artery. The vertebrobasilar confluence is normal. There is no reflux of contrast down the left vertebral artery. The basilar segment and apex are normal. The right posterior-inferior cerebellar artery is normal. Bilateral anterior-inferior cerebellar arteries are normal. Bilateral superior cerebellar arteries are normal. Bilateral posterior cerebral arteries are normal. The capillary and venous phases are normal. No aneurysm or arteriovenous shunting is identified. LEFT VERTEBRAL ARTERY INJECTION: DSA images of the posterior intracranial circulation demonstrate normal course and caliber of the distal left vertebral artery. The vertebrobasilar confluence is normal. There is no reflux of contrast down the left vertebral artery. The basilar segment and apex are normal. The left PICA is normal. Bilateral anterior-inferior cerebellar arteries are normal. Bilateral superior cerebellar arteries are normal. Bilateral posterior cerebral arteries are normal. The capillary and venous phases are normal. No aneurysm or arteriovenous shunting is identified. LEFT INTERNAL JUGULAR VEIN: DSA images demonstrate mild narrowing of the left transverse-sigmoid sinus junction. Otherwise the left-sided jugular venous system appears normal. BASED ON THE ABOVE FINDINGS, THE FOLLOWING INTERVENTION WAS PERFORMED: PROCEDURE: The 5 Icelandic angled Taper Glidecath catheter was maintained in position in the left common carotid artery and connected to continuous heparinized saline infusion. A 6 Icelandic Envoy catheter was maintained in the left jugular bulb and also connected to continuous heparinized saline infusion. The 0.014 transcend microwire and 7mm Transform balloon were advanced to the proximal left transverse sinus. At this point functional testing was performed. The patient's head was turned to the right and the left side of the neck was compressed. Pulsatile tinnitus severity was largely unchanged with left neck compression. Angiographic injections were performed from the left common carotid artery as follows. LEFT COMMON CAROTID ARTERY INJECTION: Severely motion limited DSA images of the left anterior intracranial circulation remain unchanged compared to the prior angiographic images. The left jugular venous system appears patent with a left neck compression, although venous phase images are severely motion degraded. At this point test balloon occlusion of the left-sided jugular venous system was attempted. The Transform balloon was inflated to nominal pressure in the left transverse-sigmoid sinus junction. Prior to balloon inflation, the patient's left-sided tinnitus was rated to be an 8 out of 10. Following balloon inflation to nominal pressure, the patient rated the left-sided pulsatile tinnitus to be a 3 out of 10 in severity. Angiographic injection was performed from the left common carotid artery with the balloon inflated at nominal pressure. LEFT COMMON CAROTID ARTERY INJECTION (left transverse sinus balloon inflation): DSA images of the left anterior circulation remain unchanged compared to the preintervention angiographic findings. Flow through the left jugular venous system is significantly decreased, but not completely occluded. The balloon was subsequently deflated and then reinflated in the left jugular bulb. The transformed balloon was inflated to nominal pressure in the left jugular bulb. With balloon inflation in the left jugular bulb, pulsatile tinnitus had a modest decrease in intensity but not as much as that experienced during left-sided jugular bulb balloon inflation. LEFT COMMON CAROTID ARTERY INJECTION (left jugular bulb balloon inflation): DSA images of the left anterior circulation remain unchanged compared to the preintervention angiographic findings. Flow through the left jugular venous system is significantly decreased, but not completely occluded. After final angiographic images were obtained, the diagnostic and guide catheters were removed from the body. Angiography of the access site was performed through the right femoral sheath. RIGHT COMMON FEMORAL ARTERY: DSA images demonstrate normal course and caliber of the right common femoral artery. The sheath is in place above the bifurcation and below the inferior epigastric artery. There is no evidence of dissection or pseudoaneurysm. Kala Joseph PA-C INTERVENTIONAL RADIOLOGY Fi nal Result * IR CAROTID EFFIE (09/28/2024 1:36 PM EDT) Anatomical Region Laterality Modality Other 09/28/2024 1:36 PM EDT Impressions 10/01/2024 11:58 AM EDT IMPRESSION: 1. No arteriovenous shunting to explain the patient's left-sided pulsatile tinnitus. 2. Mild left-sided transverse-sigmoid sinus narrowing measuring less than 50%. 3. Moderate decrease in pulsatile tinnitus severity during left transverse-sigmoid sinus balloon inflation. 4. Modest decrease in pulsatile tinnitus severity during left jugular bulb balloon inflation. Bradford Carver MD Fellow, Endovascular Surgical Neuroradiology Certified Residential Medication Aide: GAIL Transcribe Date/Time: Oct 01 2024 6:27A Dictated by : BRADFORD CARVER MD This examination was interpreted and the report reviewed and electronically signed by: SULEMAN BUSTOS MD on Oct 01 2024 11:56AM EST Narrative 10/01/2024 11:58 AM EDT * * *Final Report* * * DATE OF EXAM: Sep 28 2024 1:36PM [facility] 5130 - IR CAROTID - INTERNAL / PROCEDURE REASON: Pulsatile tinnitus, left ear * * * * Physician Interpretation * * * * Endovascular Surgical Neuroradiology Report CLINICAL HISTORY: This patient is a 29 years-old Female who presented with left sided pulsatile tinnitus. A diagnostic cervicocerebral angiogram and test balloon occlusion were requested to evaluate the cerebral vasculature for surgical planning. PROCEDURE: 1. Ultrasound-guided right femoral artery and right femoral vein access. 2. Diagnostic cervicocerebral angiogram. 3. Test balloon occlusion of the left transverse sinus and jugular vein. 4. Follow up cerebral angiogram 5. Closure device - 5F Vascade (artery) and 6/7 Vascade (vein) INFORMED CONSENT: The procedural risks, benefits, alternatives and complications were discussed with the patient. All questions were answered and they requested that we proceed. PRE-PROCEDURAL DIAGNOSIS: pulsatile tinnitus POST-PROCEDURAL DIAGNOSIS: Same. TIME OUT TIME: 11:55 PROCEDURE START TIME: 12:00 PROCEDURE END TIME: 13:04 ATTENDING: Suleman Bustos MD [employer] (FELLOW): Bradford Carver MD The procedure was performed by the attending, with an registered sales assistant. ANESTHESIA: No sedation was given. Pulsed oximetry, cardiopulmonary monitoring and electrocardiography was performed throughout the procedure by the anesthesiology team. ANGIOGRAPHY MATERIALS: Diagnostic catheter: 5 Fr Angled Taper GlideCath catheter Guidewire: 0.035 angled-tapered Glidewire. Guide catheter: 6 Fr Envoy catheter Balloon: 7 mm x 7 mm Transform balloon delivery microcatheter Transend 0.014 Fluoroscopic Radiation Summary: Plane A, Air Kerma: 749.5 mGy Plane B, Air Kerma: 218.2 mGy Dose Area Product (DAP): [id number] uGym2 Fluoro time: 21:24 min:sec arterial: 185 ml of OMNIPAQUE 300 TECHNIQUE: After discussion of the risks and benefits of diagnostic cerebral angiography, informed consent was obtained. The patient was brought to the angiography suite and placed in supine position. The right groin areas were prepped and draped in the usual standard fashion. After fluoroscopic localization of the right femoral head, the right common femoral artery was visualized with ultrasound. Right common femoral artery: normal and patent. The right common femoral artery was found to be sufficient for transfemoral access. A permanent image of the artery was archived. 1% lidocaine was administered for local anesthesia. Vascular access was then obtained in the right common femoral artery utilizing a standard 4 Fr micropuncture set, under direct ultrasound visualization. A 5 Fr sheath was inserted in the right femoral artery, which was subsequently flushed. Then attention was turned toward venous access. After fluoroscopic localization of the right femoral head, the right common femoral vein was visualized with ultrasound. Right common femoral vein: Normal and patent. The right common femoral vein was found to be sufficient for transfemoral access. A permanent image of the vein was archived. 1% lidocaine was administered for local anesthesia. Vascular access was then obtained in the right common femoral vein utilizing a standard 4 Icelandic micropuncture set, under direct ultrasound visualization. A 6 Icelandic sheath was inserted in the right common femoral vein, which was subsequently flushed. Baseline and serial ACTs were obtained, and intermittent boluses of intravenous heparin were administered to maintain an appropriate and therapeutic level of anticoagulation throughout the procedure. Through the right femoral arterial sheath, a 5 Fr Angled Taper GlideCath catheter and wire were then fluoroscopically advanced for selective catheterization of the following vessels: Brachiocephalic vascular family: Right common carotid artery, cervical views. Right internal carotid artery, intracranial views. Standard AP and lateral views. Right external carotid artery, cranial views. Right vertebral artery, intracranial views. Standard AP and lateral views. Left carotid vascular family: Left common carotid artery, cervical views. Left internal carotid artery, intracranial views. Standard AP and lateral views. Left external carotid artery, cranial views. Left subclavian vascular family: Left vertebral artery, intracranial views. Standard AP and lateral views. Additionally, in conjunction with the glide wire, a 6 [place]ic Envoy catheter was utilized to select the left jugular bulb, from which venographic injections were performed. Left internal jugular vein, AP and lateral views. COMPLICATIONS: There were no observed complications during the procedure or in the immediate post-operative period. FINDINGS: RIGHT COMMON CAROTID ARTERY INJECTION (cervical): DSA images of the right anterior cervical circulation demonstrate normal course and caliber of the distal common carotid artery. There is no significant atherosclerosis at the carotid bifurcation. The cervical ICA has normal course and caliber. The proximal ECA and its branches demonstrate a normal course and caliber. There is no evidence of dissection or dural AV fistula. RIGHT INTERNAL CAROTID ARTERY INJECTION (cranial): DSA images of the right anterior intracranial circulation demonstrate normal course and caliber of the petrous, cavernous and supraclinoid segments of the internal carotid artery. The ophthalmic artery origin, course and caliber are normal. There is a moderate sized PCOMM artery that contributes to the posterior circulation. The anterior choroidal artery is normal. The right M1 segment and corresponding MCA distribution are normal. The right A1 segment is hypoplastic. The right HAO distribution is faintly visualized. There is no filling across the anterior communicating artery to the contralateral HAO. Capillary and venous phases are normal. No aneurysm or arteriovenous malformation is identified. The right transverse sigmoid sinus system is dominant. RIGHT EXTERNAL CAROTID ARTERY (cranial): The external carotid artery course, caliber and terminal branches are normal. No arteriovenous malformation or arteriovenous fistula is identified. LEFT COMMON CAROTID ARTERY INJECTION (cervical): DSA images of the left anterior cervical circulation demonstrate normal course and caliber of the distal common carotid artery. There is no significant atherosclerosis at the carotid bifurcation. The cervical ICA has normal course and caliber. The proximal ECA and its branches demonstrate a normal course and caliber. There is no evidence of dissection or dural AV fistula. LEFT INTERNAL CAROTID ARTERY INJECTION (cranial): DSA images of the left anterior intracranial circulation demonstrate normal course and caliber of the petrous, cavernous and supraclinoid segments of the internal carotid artery. The ophthalmic artery origin, course and caliber are normal. There is a small PCOMM artery without significant contribution to the posterior circulation. The anterior choroidal artery is normal. M1 and A1 segments are normal. MCA and HAO distributions are normal. There is robust filling across the anterior communicating artery to the contralateral HAO. Capillary and venous phases are normal. No aneurysm or arteriovenous malformation is identified. The left transverse sigmoid sinus system is nondominant. There is mild narrowing of the left transverse-sigmoid sinus junction which is less than 50%. LEFT EXTERNAL CAROTID ARTERY (cranial): The external carotid artery course, caliber and terminal branches are normal. No arteriovenous malformation or arteriovenous fistula is identified. RIGHT VERTEBRAL ARTERY INJECTION: DSA images of the posterior intracranial circulation demonstrate normal course and caliber of the distal right vertebral artery. The vertebrobasilar confluence is normal. There is no reflux of contrast down the left vertebral artery. The basilar segment and apex are normal. The right posterior-inferior cerebellar artery is normal. Bilateral anterior-inferior cerebellar arteries are normal. Bilateral superior cerebellar arteries are normal. Bilateral posterior cerebral arteries are normal. The capillary and venous phases are normal. No aneurysm or arteriovenous shunting is identified. LEFT VERTEBRAL ARTERY INJECTION: DSA images of the posterior intracranial circulation demonstrate normal course and caliber of the distal left vertebral artery. The vertebrobasilar confluence is normal. There is no reflux of contrast down the left vertebral artery. The basilar segment and apex are normal. The left PICA is normal. Bilateral anterior-inferior cerebellar arteries are normal. Bilateral superior cerebellar arteries are normal. Bilateral posterior cerebral arteries are normal. The capillary and venous phases are normal. No aneurysm or arteriovenous shunting is identified. LEFT INTERNAL JUGULAR VEIN: DSA images demonstrate mild narrowing of the left transverse-sigmoid sinus junction. Otherwise the left-sided jugular venous system appears normal. BASED ON THE ABOVE FINDINGS, THE FOLLOWING INTERVENTION WAS PERFORMED: PROCEDURE: The 5 Icelandic angled Taper Glidecath catheter was maintained in position in the left common carotid artery and connected to continuous heparinized saline infusion. A 6 Icelandic Envoy catheter was maintained in the left jugular bulb and also connected to continuous heparinized saline infusion. The 0.014 transcend microwire and 7mm Transform balloon were advanced to the proximal left transverse sinus. At this point functional testing was performed. The patient's head was turned to the right and the left side of the neck was compressed. Pulsatile tinnitus severity was largely unchanged with left neck compression. Angiographic injections were performed from the left common carotid artery as follows. LEFT COMMON CAROTID ARTERY INJECTION: Severely motion limited DSA images of the left anterior intracranial circulation remain unchanged compared to the prior angiographic images. The left jugular venous system appears patent with a left neck compression, although venous phase images are severely motion degraded. At this point test balloon occlusion of the left-sided jugular venous system was attempted. The Transform balloon was inflated to nominal pressure in the left transverse-sigmoid sinus junction. Prior to balloon inflation, the patient's left-sided tinnitus was rated to be an 8 out of 10. Following balloon inflation to nominal pressure, the patient rated the left-sided pulsatile tinnitus to be a 3 out of 10 in severity. Angiographic injection was performed from the left common carotid artery with the balloon inflated at nominal pressure. LEFT COMMON CAROTID ARTERY INJECTION (left transverse sinus balloon inflation): DSA images of the left anterior circulation remain unchanged compared to the preintervention angiographic findings. Flow through the left jugular venous system is significantly decreased, but not completely occluded. The balloon was subsequently deflated and then reinflated in the left jugular bulb. The transformed balloon was inflated to nominal pressure in the left jugular bulb. With balloon inflation in the left jugular bulb, pulsatile tinnitus had a modest decrease in intensity but not as much as that experienced during left-sided jugular bulb balloon inflation. LEFT COMMON CAROTID ARTERY INJECTION (left jugular bulb balloon inflation): DSA images of the left anterior circulation remain unchanged compared to the preintervention angiographic findings. Flow through the left jugular venous system is significantly decreased, but not completely occluded. After final angiographic images were obtained, the diagnostic and guide catheters were removed from the body. Angiography of the access site was performed through the right femoral sheath. RIGHT COMMON FEMORAL ARTERY: DSA images demonstrate normal course and caliber of the right common femoral artery. The sheath is in place above the bifurcation and below the inferior epigastric artery. There is no evidence of dissection or pseudoaneurysm. 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
--- OUTSIDE RECORDS SUMMARY | 2024-11-05 17:34 | XMS_ITS | Encounter Summary ---
Author Organization [facility] Address [address] [place] [address] Care Team Providers Care Senior Ui Software Engineer Name Role Phone Rufino Ayala PA-C Unavailable [phone] Terry Kovacs MD Unavailable Rufino Ayala PA-C Primary Care Provider Source Comments In the event this information is protected by the Federal Confidentiality of Alcohol and Drug AbusePatient Records regulations: The Federal rules restrict any use of the information to criminally investigate or prosecute any alcohol or drug abuse patient.[facility] Encounter Details Date Type Department Care Team (Late st Contact Info) Description 09/24/2024 Patient Update [facility] [address] [place] [address] Suleman Mariscal MD [address] [place] [address] Social History Tobacco Use Types Packs/Day Years [...] N ot on file 05/02/2020 Data from: https://www.neighborhoodatlas.medicine.[facility].edu/. Last address used for calculation Not [...] Info) Description 11/27/2024 8:[address] [facility] Neurology [address] [place] [address] Suleman Mariscal MD [address] [place], [place] [id number] Dx Hospital DC Post op Est patient 11/27/2024 3:00 PM EDT Appointment Radiology [address], [place] [address] Dx: Pulsatile tinnitus, left ear [H93.A2] 12/03/2024 3:[address] [facility] Neurological [facility] [address] [place] [address] Deon Montemayor, QUINTEN [address], [place] [address] new consult for Tinnitus CBT per Dr. Montemayor documented as of this encounter Procedures Procedure Name Priority Date/Time Associated Diagnosis Comments IR CAROTID CERVICAL 09/28/2024 1 :36 PM EDT IR EXTERNAL CAROTID 09/28/2024 1 :36 PM EDT IR VERTEBRAL ARTERY 09/28/2024 1 :36 PM EDT IR VERTEBRAL ARTERY 09/28/2024 1 :36 PM EDT IR CEREBRAL ARCH & THREE VESSEL Routine 09/28/2024 1:36 PM EDT Pulsatile tinnitus, left ear IR CAROTID EFFIE 09/28/2024 1:36 PM EDT IR CAROTID EFFIE 09/28/2024 1:36 PM EDT documented in this encounter Results * IR VERTEBRAL ARTERY (09/28/2024 1:36 PM [...] Bradford Carver MD Fellow, Endovascular Surgical Neuroradiology Cap Inspector: GAIL Transcribe Date/Time: Oct 01 2024 6:27A Dictated by : BRADFORD CARVER MD This examination was interpreted and the report reviewed and electronically signed by: SULEMAN MARISCAL MD on Oct 01 2024 11:56AM EST [...] 12:00 PROCEDURE END TIME: 13:04 ATTENDING: Suleman Mariscal MD PROVINCE ARCHIVIST (FELLOW): Bradford Carver MD The procedure was performed by the attending, with an doctor assistant. ANESTHESIA: No sedation was given. Pulsed [...] Kerma: 218.2 mGy Dose Area Product (DAP): 72374 uGym2 Fluoro time: 21:24 min:sec arterial: 185 [...] common femoral vein utilizing a standard 4 B[place]an micropuncture set, under direct ultrasound visualization. A 6 [place]an sheath was inserted in the right common [...] conjunction with the glide wire, a 6 [place] Envoy catheter was utilized to select the [...] FOLLOWING INTERVENTION WAS PERFORMED: PROCEDURE: The 5 [place]an angled Taper Glidecath catheter was maintained in position in the left common carotid artery and connected to continuous heparinized saline infusion. A 6 [place] Envoy catheter was maintained in the left [...] Bradford Carver MD Fellow, Endovascular Surgical Neuroradiology Cap Inspector: PSCKenyetta Transcribe Date/Time: Oct 01 2024 6:27A Dictated by : BRADFORD CARVER MD This examination was interpreted and the report reviewed and electronically signed by: SULEMAN MARISCAL MD on Oct 01 2024 11:56AM EST [...] 12:00 PROCEDURE END TIME: 13:04 ATTENDING: Suleman Mariscal MD PROVINCE ARCHIVIST (FELLOW): Bradford Carver MD The procedure was performed by the attending, with an doctor assistant. ANESTHESIA: No sedation was given. Pulsed [...] Kerma: 218.2 mGy Dose Area Product (DAP): 87881 uGym2 Fluoro time: 21:24 min:sec arterial: 185 [...] common femoral vein utilizing a standard 4 [place]an micropuncture set, under direct ultrasound visualization. A 6 [place]wanan sheath was inserted in the right common [...] conjunction with the glide wire, a 6 [place] Envoy catheter was utilized to select the [...] FOLLOWING INTERVENTION WAS PERFORMED: PROCEDURE: The 5 [place]wanan angled Taper Glidecath catheter was maintained in position in the left common carotid artery and connected to continuous heparinized saline infusion. A 6 [place] Envoy catheter was maintained in the left [...] Bradford Carver MD Fellow, Endovascular Surgical Neuroradiology Cap Inspector: GAIL Transcribe Date/Time: Oct 01 2024 6:27A Dictated by : BRADFORD CARVER MD This examination was interpreted and the report reviewed and electronically signed by: SULEMAN MARISCAL MD on Oct 01 2024 11:56AM EST Narrative 10/01/2024 11:58 AM EDT * * *Final Report* * * DATE OF EXAM: Sep 28 2024 1:36PM NDA 6505 - IR EXT CAROTID EFFIE CEREBRAL [...] 12:00 PROCEDURE END TIME: 13:04 ATTENDING: Suleman Mariscal MD PROVINCE ARCHIVIST (FELLOW): Bradford Carver MD The procedure was performed by the attending, with an doctor assistant. ANESTHESIA: No sedation was given. Pulsed [...] Kerma: 218.2 mGy Dose Area Product (DAP): 47670 uGym2 Fluoro time: 21:24 min:sec arterial: 185 [...] common femoral vein utilizing a standard 4 B[place]wanan micropuncture set, under direct ultrasound visualization. A 6 B[place]wanan sheath was inserted in the right common [...] conjunction with the glide wire, a 6 [place] Envoy catheter was utilized to select the [...] FOLLOWING INTERVENTION WAS PERFORMED: PROCEDURE: The 5 B[place]wanan angled Taper Glidecath catheter was maintained in position in the left common carotid artery and connected to continuous heparinized saline infusion. A 6 [place] Envoy catheter was maintained in the left [...] RADIOLOGY Fi nal Result * IR CAROTID CERVICAL (09/28/2024 1:36 PM [...] Bradford Carver MD Fellow, Endovascular Surgical Neuroradiology Cap Inspector: GAIL Transcribe Date/Time: Oct 01 2024 6:27A Dictated by : BRADFORD CARVER MD This examination was interpreted and the report reviewed and electronically signed by: SULEMAN MARISCAL MD on Oct 01 2024 11:56AM EST [...] 12:00 PROCEDURE END TIME: 13:04 ATTENDING: Suleman Mariscal MD PROVINCE ARCHIVIST (FELLOW): Bradford Carver MD The procedure was performed by the attending, with an doctor assistant. ANESTHESIA: No sedation was given. Pulsed [...] Kerma: 218.2 mGy Dose Area Product (DAP): 75009 uGym2 Fluoro time: 21:24 min:sec arterial: 185 [...] common femoral vein utilizing a standard 4 B[place]wanan micropuncture set, under direct ultrasound visualization. A 6 B[place]wanan sheath was inserted in the right common [...] conjunction with the glide wire, a 6 [place] Envoy catheter was utilized to select the [...] FOLLOWING INTERVENTION WAS PERFORMED: PROCEDURE: The 5 B[place]wanan angled Taper Glidecath catheter was maintained in position in the left common carotid artery and connected to continuous heparinized saline infusion. A 6 [place]an Envoy catheter was maintained in the left [...] Bradford Carver MD Fellow, Endovascular Surgical Neuroradiology Cap Inspector: GAIL Transcribe Date/Time: Oct 01 2024 6:27A Dictated by : BRADFORD CARVER MD This examination was interpreted and the report reviewed and electronically signed by: SULEMAN MARISCAL MD on Oct 01 2024 11:56AM EST Narrative 10/01/2024 11:58 AM EDT * * *Final Report* * * DATE OF EXAM: Sep 28 2024 1:36PM [facility] 5130 - IR CAROTID - INTERNAL / [...] 12:00 PROCEDURE END TIME: 13:04 ATTENDING: Suleman Mariscal MD PROVINCE ARCHIVIST (FELLOW): Bradford Carver MD The procedure was performed by the attending, with an doctor assistant. ANESTHESIA: No sedation was given. Pulsed [...] Kerma: 218.2 mGy Dose Area Product (DAP): 77914 uGym2 Fluoro time: 21:24 min:sec arterial: 185 [...] common femoral vein utilizing a standard 4 Botswanan micropuncture set, under direct ultrasound visualization. A 6 B[place]wanan sheath was inserted in the right common [...] conjunction with the glide wire, a 6 [place]an Envoy catheter was utilized to select the [...] FOLLOWING INTERVENTION WAS PERFORMED: PROCEDURE: The 5 B[place]wanan angled Taper Glidecath catheter was maintained in position in the left common carotid artery and connected to continuous heparinized saline infusion. A 6 B[place]wanan Envoy catheter was maintained in the left [...] Bradford Carver MD Fellow, Endovascular Surgical Neuroradiology Cap Inspector: [facility] Transcribe Date/Time: Oct 01 2024 6:27A Dictated by : BRADFORD CARVER MD This examination was interpreted and the report reviewed and electronically signed by: SULEMAN MARISCAL MD on Oct 01 2024 11:56AM EST Narrative 10/01/2024 11:58 AM EDT * * *Final Report* * * DATE OF EXAM: Sep 28 2024 1:36PM [facility] 5130 - IR CAROTID - INTERNAL / [...] 12:00 PROCEDURE END TIME: 13:04 ATTENDING: Suleman Mariscal MD PROVINCE ARCHIVIST (FELLOW): Bradford Carver MD The procedure was performed by the attending, with an doctor assistant. ANESTHESIA: No sedation was given. Pulsed [...] Kerma: 218.2 mGy Dose Area Product (DAP): 52015 uGym2 Fluoro time: 21:24 min:sec arterial: 185 [...] common femoral vein utilizing a standard 4 Botswanan micropuncture set, under direct ultrasound visualization. A 6 B[place]wanan sheath was inserted in the right common [...] conjunction with the glide wire, a 6 [place] Envoy catheter was utilized to select the [...] FOLLOWING INTERVENTION WAS PERFORMED: PROCEDURE: The 5 B[place]wanan angled Taper Glidecath catheter was maintained in position in the left common carotid artery and connected to continuous heparinized saline infusion. A 6 B[place]an Envoy catheter was maintained in the left [...] Bradford Carver MD Fellow, Endovascular Surgical Neuroradiology Cap Inspector: [facility] Transcribe Date/Time: Oct 01 2024 6:27A Dictated by : BRADFORD CARVER MD This examination was interpreted and the report reviewed and electronically signed by: SULEMAN MARISCAL MD on Oct 01 2024 11:56AM EST [...] 12:00 PROCEDURE END TIME: 13:04 ATTENDING: Suleman Mariscal MD PROVINCE ARCHIVIST (FELLOW): Bradford Carver MD The procedure was performed by the attending, with an doctor assistant. ANESTHESIA: No sedation was given. Pulsed [...] Kerma: 218.2 mGy Dose Area Product (DAP): 66959 uGym2 Fluoro time: 21:24 min:sec arterial: 185 [...] common femoral vein utilizing a standard 4 Botswanan micropuncture set, under direct ultrasound visualization. A 6 Botswanan sheath was inserted in the right common [...] conjunction with the glide wire, a 6 B[place]an Envoy catheter was utilized to select the [...] FOLLOWING INTERVENTION WAS PERFORMED: PROCEDURE: The 5 B[place]wanan angled Taper Glidecath catheter was maintained in position in the left common carotid artery and connected to continuous heparinized saline infusion. A 6 B[place]an Envoy catheter was maintained in the left [...] PA-C INTERVENTIONAL RADIOLOGY Fi nal Result * HCG, QUALITATIVE, URINE (09/28/2024 7:26 AM EDT) HCG Qualitative, Urine Negative Negative 09/28/2024 9:[address] [facility] Comment:This test is intende d to aid in the early detection of . Very dilute urine samples, as indicated by a low specific gravity, may not contain residential sales representative levels of hCG. This test detects [...] SPECIMEN / Unknown Non Blood / Unknown 09/28/2024 7:26 AM EDT 09/28/2024 7:26 AM EDT Kala Joseph PA-C LABORATORY Final Resul t [facility] [place] [address], * COMPLETE BLOOD COUNT (09/25/2024 1:30 PM EDT) WBC 8.45 3.70 - 11.00 k/uL 09/25/2024 1:39 PM EDT [facility] RBC 4.52 3.90 - 5.20 m/uL 09/25/2024 1:39 PM EDT [facility] Hemoglobin 14.2 11.5 - 15.5 g/dL 09/25/2024 1:39 PM EDT [facility] Hematocrit 40.8 36.0 - 46.0 % 09/25/2024 1:39 PM EDT [facility] MCV 90.3 80.0 - 100.0 fL 09/25/2024 1:39 PM EDT [facility] MCH 31.4 26.0 - 34.0 pg 09/25/2024 1:39 PM EDT [facility] MCHC 34.8 30.5 - 36.0 g/dL 09/25/2024 1:39 PM EDT [facility] RDW-CV 12.0 11.5 - 15.0 % 09/25/2024 1:39 PM EDT [facility] Platelet Count 228 150 - 400 k/uL 09/25/2024 1:39 PM EDT [facility] MPV 10.6 9.0 - 12.7 fL 09/25/2024 1:39 PM EDT [facility] Absolute nRBC <0.01 <0.01 k/uL 09/25/2024 1:39 PM EDT [facility] Blood BLOOD SPECIMEN / Unknown Venipuncture / Unknown 09/25/2024 1:30 PM EDT 09/25/2024 1:30 PM EDT Kala Joseph PA-C LABORATORY Final Resul t [facility] [address] [place] [address] * (ABNORMAL) BASIC METABOLIC PANEL (09/25/2024 1:30 PM EDT) [facility] Glucose 97 74 - 99 mg/dL 09/25/2024 1:57 PM EDT [facility] Comment: The [place] Diabetes Association (ADA) provides guidance for cutoff [...] Standards of Medical Care in Diabetes 2016, [place] Diabetes Association. Diabetes Care. 2016.39(Suppl 1). BUN 17 7 - 21 mg/dL 09/25/2024 1:57 PM EDT [facility] Creatinine 0.78 0.58 - 0.96 mg/dL 09/25/2024 1:57 PM EDT [facility] Sodium 137 136 - 144 mmol/L 09/25/2024 1:57 PM EDT [facility] Potassium 4.2 3.7 - 5.1 mmol/L 09/25/2024 1:57 PM EDT [facility] Chloride 102 98 - 107 mmol/L 09/25/2024 1:57 PM EDT [facility] CO2 25 22 - 30 mmol/L 09/25/2024 1:57 PM EDT [facility] Anion Gap 10 8 - 15 mmol/L 09/25/2024 1:57 PM T [facility] Calcium, Total 10.4(H) 8.5 - 10.2 mg/dL 09/25/2024 1:57 PM EDT [facility] Estimated Glomerular Filtration Rate 106 >=60 mL/min/1. 73m 09/25/2024 1:57 PM T [facility] Comment:Estimated Glomerular Filtration Rate (eGFR) [...] BLOOD SPECIMEN / Unknown Venipuncture / Unknown 09/25/2024 1:30 PM EDT 09/25/2024 1:30 PM EDT us Kala Joseph PA-C LABORATORY Final Resul t [facility] [address] [place] [address] documented in this encounter Visit Diagnoses Diagnosis Pulsatile tinnitus, left ear- Primary documented in this encounter Care Teams Senior Ui Software Engineer Relationship Specialty Start Date End Date Rufino Ayala PA-C [address] [place] [address] PCP - General Physician Topographical Drafter 06/21/24 Rufino Ayala PA-C [address] [place] [address] Referring Physician Topographical Drafter 04/16/24 Terry Kovacs MD [address] [place], [place] [id number] Referring Ent - Otolaryngology 06/07/24 documented as of this encounter
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
--- OUTSIDE RECORDS SUMMARY | 2024-11-05 17:34 | XMS_ITS | Encounter Summary ---
Author Organization [facility] Address [address] [place] [address] Care Team Providers Care Ship Mate Name Role Phone Rufino Ayala PA-C Unavailable [phone] Terry Kovacs MD Unavailable Rufino Ayala PA-C Primary Care Provider [phone] Source Comments In the event this information is protected by the Federal Confidentiality of Alcohol and Drug AbusePatient Records regulations: The Federal rules restrict any use of the information to criminally investigate or prosecute any alcohol or drug abuse patient.[facility] Encounter Details Date Type Department Care Team (Late st Contact Info) Description 10/03/2024 Patient Msg [facility] [address] [place] [address] Provider, [facility] Left Jugular Vein Stent Instructions Social History Tobacco Use Types Packs/Day Years [...] is lower risk 4 10/02/2024 Data from: https://www.neighborhoodatlas.[facility]/. Last address used for calculation [address] 10/02/2024 Comments No Sex and Gender Information Value Date Recorded Sex Assigned at Not on file Legal Sex Female 9:59 AM EDT Gender Identity Not on file Sexual Orientation Not on file documented as of this encounter Plan of Treatment Upcoming Encounters Date Type Department Care Team (Latest Contact Info) Description 11/27/2024 8:40 AM EDT [facility] Neurology [address] [place] [address] Heladio Bustos MD [address] [place] [address] Dx Hospital DC Post op Est patient 11/27/2024 3:00 PM EDT Appointment Radiology [address] [address] Dx: Pulsatile tinnitus, left ear [H93.A2] 12/03/2024 3:00 PM EDT [facility] Neurological [facility] [address] [place] [address] Deon Montemayor PSYD [address] [place] [address] new consult for Tinnitus CBT per Dr. Montemayor documented as of this encounter Visit Diagnoses Not on filedocumented in this encounter Care Teams Ship Mate Relationship Specialty Start Date End Date Rufino Ayala PA-C [address] [place] [address] PCP - General Physician Blade Sharpener 06/21/24 Rufino Ayala PA-C [address] [place] [address] Referring Physician Blade Sharpener 04/16/24 Terry Kovacs MD [address] [place] [address] Referring Ent - Otolaryngology 06/07/24 documented as of this encounter
--- OUTSIDE RECORDS SUMMARY | 2024-11-05 17:34 | XMS_ITS | Encounter Summary ---
Author Organization [facility] Address [address] [place] [address] Care Team Providers Care Product Examiner Name Role Phone Rufino Ayala PA-C Unavailable [phone] Terry Kovacs MD Unavailable Rufino Ayala PA-C Primary Care Provider [phone] Source Comments In the event this information is protected by the Federal Confidentiality of Alcohol and Drug AbusePatient Records regulations: The Federal rules restrict any use of the information to criminally investigate or prosecute any alcohol or drug abuse patient.[facility] Encounter Details Date Type Department Care Team (Late st Contact Info) Description 09/21/2024 Patient Msg [facility] [address] [place] [address] Provider, [facility] Procedure-Diagnostic Cerebral Angiogram Social History Tobacco Use Types [...] N ot on file 05/02/2020 Data from: https://www.neighborhoodatlas.[facility]/. Last address used for calculation Not on file 05/02/2020 Comments No Sex and Gender Information Value Date Recorded Sex Assigned at Not on file Legal Sex Female 9:59 AM EDT Gender Identity Not on file Sexual Orientation Not on file documented as of this encounter Plan of Treatment Upcoming Encounters Date Type Department Care Team (Latest Contact Info) Description 11/27/2024 8:40 AM EDT [facility] Neurology [address] [place] [address] Heladio Bustos MD [address] [place] [address] Dx Hospital DC Post op Est patient 11/27/2024 3:00 PM EDT Appointment Radiology [address], [place] [address] Dx: Pulsatile tinnitus, left ear [H93.A2] 12/03/2024 3:00 PM EDT [facility] Neurological [facility] [address] [place] [address] Deon Montemayor, QUINTEN [address] [place] [address] new consult for Tinnitus CBT per Dr. Montemayor documented as of this encounter Visit Diagnoses Not on filedocumented in this encounter Care Teams Product Examiner Relationship Specialty Start Date End Date Rufino Ayala PA-C [address] [place] [address] PCP - General Physician Vehicle Modification Technician 06/21/24 Rufino Ayala PA-C [address] [place] [address] Referring Physician Vehicle Modification Technician 04/16/24 Terry Kovacs MD [address] [place] [address] Referring Ent - Otolaryngology 06/07/24 documented as of this encounter
--- OUTSIDE RECORDS SUMMARY | 2024-11-05 17:34 | XMS_ITS | Clinical Summary ---
Author Organization [facility] Address [address] [place] [id number] Care Team Providers Care Background Check Coordinator Name Role Phone Unavailable Primary Care Provider Unavailabl e Social History Tobacco Use Types Packs/Day Years Used Date Smoking Tobacco: Never Assessed Comments Unknown Sex and Gender Information Value Date Recorded Sex Assigned at Not on file Legal Sex Female 10:48 AM EST Gender Identity Not on file Sexual Orientation Not on file Plan of Treatment Health Maintenance Due Date Last Done Comments HEPATITIS C VIRUS SCREENING 1995 HEP B VACCINE (2 of 3 - 3-dose series) 09/09/2000 08/12/2000 TETANUS 07/13/2006 07/13/1996, 1995, 1995 HIV SCREENING DISCUSSION 2010 TDAP (ADULT) 2014 CERVICAL CANCER SCREENING DISCUSSION 2016 COVID-19 VACCINE (2023-2 5 season) 2024 08/17/2021, 07/27/2021 INFLUENZA VACCINE (Season Ended) 2025 HPV VACCINE Aged Out No longer eligi ble based on patient's age to complete this topic PNEUMOCOCCAL VACCINE SERIES Aged Out No longer eligible based on patient's age to complete this topic
--- OUTSIDE RECORDS SUMMARY | 2024-11-05 17:35 | XMS_ITS | Encounter Summary ---
Author Organization [facility] Address [facility] [place] [address] Care Team Providers Care Machine Clerical Verifier Name Role Phone Rufino Ayala PA-C Unavailable Terry Kovacs MD Unavailable Rufino Ayala PA-C Primary Care Provider [phone] Source Comments In the event this information is protected by the Federal Confidentiality of Alcohol and Drug AbusePatient Records regulations: The Federal rules restrict any use of the information to criminally investigate or prosecute any alcohol or drug abuse patient.[facility] Reason for Referral * MRI/CT (Routine) - Authorized Specialty Diagnoses / Procedures Referred By Contac t Referred To Contact CT IMAGING Diagnoses Pulsatile tinnitus, left ear Procedures CTV HEAD WO/W IVCON CT ANGIOGRAPHY HEAD W/CONTRAST/NONCONTRAST Sandra Landry APRN.CNP [address] [place] [address] Phone: tel: fax: [place] [phone] Referral ID Status Reason Start Date Expiration Date Visits Requested Visits Authorized [id number] Authorized Auto-Generat ed Referral 11/26/2024 11/26/2025 1 1 Encounter Details Date Type Department Care Team (Late st Contact Info) Description 10/27/2024 Orders Only [facility] [address] [place] [address] Sandra Landry, DANITA [address] [place] [address] Pulsatile tinnitus, left ear (Primary Dx) Social History Tobacco Use Types [...] is lower risk 4 10/02/2024 Data from: https://www.neighborhoodatlas.medicine.[facility].edu/. Last address used for calculation [address] 10/02/2024 Comments No Sex and Gender Information Value Date Recorded Sex Assigned at Not on file Legal Sex Female 9:59 AM EDT Gender Identity Not on file Sexual Orientation Not on file documented as of this encounter Plan of Treatment Upcoming Encounters Date Type Department Care Team (Latest Contact Info) Description 11/27/2024 8:40 AM EDT [facility]rology [address] [place] [address] Heladio Bustos MD [address] [place], [place] [id number] Dx Hospital DC Post op Est patient 11/27/2024 3:00 PM EDT Appointment Radiology [address] [place] [address] Dx: Pulsatile tinnitus, left ear [H93.A2] 12/03/2024 3:00 PM EDT [facility] [address] [place] [address] Deon Montemayor, PSREBA [address] [place] [address] new consult for Tinnitus CBT per Dr. Montemayor Scheduled Orders Name Type Priority Associated Diagnoses Orde r Schedule CTV HEAD WO/W IVCON Radiology Routine Pulsatile tinnitus, left ear Expected: 11/26/2024, Expires: 11/26/2025 documented as of this encounter Visit Diagnoses Diagnosis Pulsatile tinnitus, left ear- Primary documented in this encounter Care Teams Machine Clerical Verifier Relationship Specialty Start Date End Date Rufino Ayala PA-C [address] [place] [address] PCP - General Physician Door Repairer Bus 06/21/24 Rufino Ayala PA-C [address] [place] [address] Referring Physician Door Repairer Bus 04/16/24 Terry Kovacs MD [address] [place], [place] [id number] Referring Ent - Otolaryngology 06/07/24 documented as of this encounter
--- NOTE | 2024-11-05 18:00 | XR_ITS ---
[place] [address] Patient Name: MAGGIE MCKOY MRN: [id number] date: 1995 Sex: F Assigned Patient Location: ED.MAIN Current Patient Location: ED.MAIN Accession/Order Number: [id number] Exam Date: 11/05/2024 18:30 Report Date: 11/05/2024 18:32 At the request of: PAT SNYDER Procedure: XR tibia fibula RT 2V XR tibia fibula RT 2V 11/05/2024 6:00 PM SIGNS AND SYMPTOMS: ^fall, right ankle pain/swelling PROTOCOL: Frontal and lateral radiographs of the right tibia and fibula COMPARISON: None FINDINGS: The bones are in anatomic alignment. No fracture. Soft tissue swelling is present laterally along the ankle. The visualized knee is intact. XR/XR tibia fibula RT 2V IMPRESSION: No fracture. Soft tissue swelling is present laterally along the ankle. Impression dictated by: Sebastian Schulte M.D. 11/05/2024 6:32 PM Dictation Location: [place] [address] Electronically authenticated by: [id number] Y Date: 11/05/2024 18:32
--- NOTE | 2024-11-05 18:00 | XR_ITS ---
[facility] [place] [address] Patient Name: MAGGIE MCKOY MRN: [id number] date: 1995 Sex: F Assigned Patient Location: ED.MAIN Current Patient Location: ED.MAIN Accession/Order Number: [id number] Exam Date: 11/05/2024 18:27 Report Date: 11/05/2024 18:30 At the request of: PAT SNYDER Procedure: XR foot RT min 3V XR ankle RT min 3V, XR foot RT min 3V 11/05/2024 6:00 PM SIGNS AND SYMPTOMS: fall PROTOCOL: Frontal, lateral, and oblique radiographs of the right foot and ankle COMPARISON: None FINDINGS: Right foot: The bones are in anatomical. The joint spaces are preserved. No fracture or dislocation. Soft tissue swelling is noted along the anterior and lateral aspect of the ankle. Right ankle: The bones are in anatomical. The ankle mortise is preserved. The joint spaces are preserved. No fracture or dislocation. Soft tissue swelling is noted along the anterior and lateral aspect of the ankle. XR/XR ankle RT min 3V IMPRESSION: Right foot: No fracture. Right ankle: No fracture Soft tissue swelling is noted, greatest along the anterior and lateral aspect of the ankle. Impression dictated by: Sebastian Schulte M.D. 11/05/2024 6:30 PM Dictation Location: [place] [address] Electronically authenticated by: [id number] Y Date: 11/05/2024 18:30
--- NOTE | 2024-11-05 18:00 | XR_ITS ---
[facility] [place] [id number] Patient Name: MAGGIE MCKOY MRN: [id number] date: 1995 Sex: F Assigned Patient Location: ED.MAIN Current Patient Location: ED.MAIN Accession/Order Number: [id number] Exam Date: 11/05/2024 18:27 Report Date: 11/05/2024 18:30 At the request of: PAT SNYDER Procedure: XR foot RT min 3V XR ankle RT min 3V, XR foot RT min 3V 11/05/2024 6:00 PM SIGNS AND SYMPTOMS: fall PROTOCOL: Frontal, lateral, and oblique radiographs of the right foot and ankle COMPARISON: None FINDINGS: Right foot: The bones are in anatomical. The joint spaces are preserved. No fracture or dislocation. Soft tissue swelling is noted along the anterior and lateral aspect of the ankle. Right ankle: The bones are in anatomical. The ankle mortise is preserved. The joint spaces are preserved. No fracture or dislocation. Soft tissue swelling is noted along the anterior and lateral aspect of the ankle. XR/XR foot RT min 3V IMPRESSION: Right foot: No fracture. Right ankle: No fracture Soft tissue swelling is noted, greatest along the anterior and lateral aspect of the ankle. Impression dictated by: Sebastian Schulte M.D. 11/05/2024 6:30 PM Dictation Location: [place] [address] Electronically authenticated by: [id number] Y Date: 11/05/2024 18:30
--- NOTE | 2024-11-05 18:09 | ED.GENADUL1 ---
HPI HPI - General Adult General Chief complaint: Extremity Injury, Lower Stated complaint: LE INJURY Time Seen by Provider: 11/05/24 17:33 Source: patient Mode of arrival: Wheelchair Limitations: no limitations History of Present Illness HPI narrative: 29-year-old female presents to the emergency room chief complaint of an accidental fall. She was working outside in the garden twisted her ankle. Patient presents here with right lateral malleolar swelling. She states she is able to ambulate. Injury occurred just prior to arrival. She is currently on Plavix due to a recent surgery on October 26 with stent placement in her carotid that states failed. She is currently being worked up for the left ear tinnitus with recent tympanoplasty repair which failed. Last ate around 330. She did not take any medication prior to arrival. She is currently on Plavix but denies striking her head when she fell Related Data Home Medications ?Medication ?Instructions ?Recorded ?Confirmed clonazepam 1 mg tablet 1 mg PO TID anxiety 11/05/24 11/05/24 clopidogrel 75 mg tablet 75 mg PO DAILY 11/05/24 11/05/24 dexamethasone 4 mg tablet 4 mg PO DAILY 11/05/24 11/05/24 methocarbamol 500 mg tablet 500 mg PO TID PRN muscle pain 11/05/24 11/05/24 pantoprazole 40 mg tablet,delayed 40 mg PO DAILY 11/05/24 11/05/24 release Allergies Allergy/AdvReac Type Severity Reaction Status Date / Time alcohol (From Mastisol Allergy Severe Hives Verified 11/05/24 17:31 Liquid Adhesive) gum mastic (From Mastisol Allergy Severe Hives Verified 11/05/24 17:31 Liquid Adhesive) methyl salicylate (From Allergy Severe Hives Verified 11/05/24 17:31 Mastisol Liquid Adhesive) storax (From Mastisol Liquid Allergy Severe Hives Verified 11/05/24 17:31 Adhesive) Opioid HPI Opioid Management Most Recent Opioid Data: Last Pain Scale 10 Today, 17:31 Review of Systems ROS Status of ROS 10 or more systems reviewed and unremarkable except as noted in history and below PFSH PFSH Social History Little interest or pleasure in doing things: not at all Feeling down, depressed, or hopeless: not at all Exam Narrative Exam Narrative: All Systems are negative except as noted/marked.All systems reviewed and otherwise negative Nurses note and vital signs reviewed and patient is not hypoxic. General: The patient appears well and in no apparent distress. Patient is resting comfortably on cart. Skin: Warm, dry, no pallor noted. There is no rash noted. Head: Normocephalic, atraumatic Eye: Normal conjunctiva, no drainage, EOMI. PERRL Ears, Nose, Mouth, and Throat: oral mucosa is moist. Nares patent. Mouth without vesicles. Ear canals patent. Tm's without Erythema Musculoskeletal: Right lateral malleoli are swelling, neurovascularly intact with good capillary fill distally no pain above the ankle or in foot. remainder of Extremities are within normal limit Neurological: A&O x4, normal speech Psychiatric: Cooperative Constitutional Vital Signs, click to edit/add: Last Vital Signs Pulse 112 H 11/05/24 17:31 Resp 24 H 11/05/24 17:31 BP 152/115 H 11/05/24 17:31 Pulse Ox 99 11/05/24 17:31 Course Vital Signs Vital signs: Vital Signs Pulse Rate 112 H 11/05/24 17:31 Respiratory Rate 24 H 11/05/24 17:31 Blood Pressure 152/115 H 11/05/24 17:31 Pulse Oximetry 99 11/05/24 17:31 Pulse Rate 112 H 11/05/24 17:31 Respiratory Rate 24 H 11/05/24 17:31 Blood Pressure 152/115 H 11/05/24 17:31 Pulse Oximetry 99 11/05/24 17:31 Medical Decision Making [facility] Narrative Medical decision making narrative: 29-year-old female presents to the emergency room chief complaint of an accidental fall. She was working outside in the garden twisted her ankle. Patient presents here with right lateral malleolar swelling. She states she is able to ambulate. Injury occurred just prior to arrival. She is currently on Plavix due to a recent surgery on October 26 with stent placement in her carotid that states failed. She is currently being worked up for the left ear tinnitus with recent tympanoplasty repair which failed. Last ate around 330. She did not take any medication prior to arrival. She is currently on Plavix but denies striking her head when she fell. Foot, ankle and tib-fib x-rays all within normal limits no acute deformity or fracture other than soft tissue swelling. Patient is placed in a Mariano wrap, air splint and provided crutches. She will be discharged home with small prescription of pain medicine. She cannot take ibuprofen is currently on Plavix. Patient agrees with plan of care will follow-up with orthopedics. Differential Diagnosis Differential Diagnosis: fracture, sprain Medical Records Medical records reviewed: Yes I reviewed the patient's medical records Imaging Data ankle: Attestation: I have reviewed the pertinent imaging results. My impression: neg soft tissue swelling Discharge Plan Discharge Chief Complaint: Extremity Injury, Lower Clinical Impression: Ankle sprain and strain Patient Disposition: Home, Self-Care Time of Disposition Decision: 18:08 Condition: Good Prescriptions / Home Meds: No Action clonazepam 1 mg tablet 1 mg PO TID clopidogrel 75 mg tablet 75 mg PO DAILY dexamethasone 4 mg tablet 4 mg PO DAILY methocarbamol 500 mg tablet 500 mg PO TID PRN (Reason: muscle pain) pantoprazole 40 mg tablet,delayed release (DR/EC) 40 mg PO DAILY Print Language: Estonian Instructions: Ankle Sprain (ED), P.R.I.C.E. Treatment (ED) Referrals: Physician,Non-Staff, MD [Primary Care Provider] - 1 week
[2024-11-05] MEDS: HYDROCODONE/ACET 5-325 MG TABLET 1 TAB PO (18:18)
[2024-11-05 18:19] VITALS: BP 125/76; PULSE 89; O2SAT 98
== END 2024-11-05 19:05 | disposition home or self-care (01) ==
PROVIDERS: Emergency Provider Emergency Medicine; PCP Physician Assistant
DX: S93.401A Sprain of unspecified ligament of right ankle, initial encounter (principal); S96.911A Strain of unspecified muscle and tendon at ankle and foot level, right foot, initial encounter; X50.1XXA Overexertion from prolonged static or awkward postures, initial encounter; W18.39XA Other fall on same level, initial encounter; Y93.H2 Activity, gardening and landscaping; Z79.02 Long term (current) use of antithrombotics/antiplatelets
CPT/HCPCS: 73590; 73610; 73630; 99283